=== PATIENT | male | born 1945 | race Caucasian/White ===

== ENCOUNTER 2021-06-16 16:33 | Inpatient (IN) ==
[2021-06-16] MEDS ORDERED: CEFEPIME 2,000 MG/20 ML VIAL IV STA (16:43)
[2021-06-16] MEDS ORDERED: SODIUM CHLORIDE 0.9% 1000ML 1,000 ML IV SCH (16:45)
--- NOTE | 2021-06-16 16:49 | Emergency Department Note ---
History of Present Illness General Chief complaint: Shortness of Breath/Dyspnea Stated complaint: SOB Time Seen by Provider: 06/16/21 16:36 History of Present Illness The patient presents to the ED with a chief complaint of confusion and hypoxia. [facility] [place] [facility] The patient is unable to provide any information as he is confused. When asked if anything bothers him, he reports no. He was found to be hypoxic with oxygen saturations of 85% at the [facility]. The patient had a positive Covid test on the of last month. The patient had a PSG prehospital of 120. No additional information is available from the patient secondary to his confusion. Home Medications Medication Instructions Recorded Confirmed Type acetaminophen 500 mg tablet 500 mg PO TID PRN 06/16/21 06/16/21 History (Tylenol Extra Strength) guaifenesin 400 mg tablet (Mucosa) 400 mg PO TID PRN 06/16/21 06/16/21 History ibuprofen 400 mg tablet 400 mg PO TID PRN 06/16/21 06/16/21 History irbesartan 150 mg tablet 150 mg PO DAILY 06/16/21 06/16/21 History ondansetron HCl 4 mg tablet 4 mg PO TID PRN 06/16/21 06/16/21 History rosuvastatin 5 mg tablet 5 mg PO HS 06/16/21 06/16/21 History Allergies Allergy/AdvReac Type Severity Reaction Status Date / Time adhesive tape Allergy Unknown Unknown Verified 06/16/21 17:04 amoxicillin [From Augmentin] Allergy Unknown Unknown Verified 06/16/21 17:04 clavulanic acid Allergy Unknown Unknown Verified 06/16/21 17:04 [From Augmentin] ultrasound coupling medium Allergy Unknown Unknown Verified 06/16/21 17:05 Past Med/Surg History Social History Smoking Status: Never smoker Preferred Language: Icelandic Feels Safe at Home: Yes and Declines to Answer Review of Systems Unobtainable due to cognitive status Physical Exam Vital Signs Vital Signs - 24 hr 06/16/21 16:57 06/16/21 17:00 06/16/21 17:02 Temperature Temperature Source Pulse Rate 96 H 97 H Pulse Rate [Apical] Pulse Rate from SpO2 Sensor 93 H 95 H Pulse Rhythm Respiratory Rate 23 22 Respiratory Effort / Characteristics Non-Labored Respiratory Depth Normal Respiratory Pattern Tachypnea Blood Pressure Blood Pressure [Right Arm] Blood Pressure Mean Blood Pressure Mean [Right Arm] Blood Pressure Position Blood Pressure Position [Right Arm] Pulse Oximetry 97 99 99 Oxygen Delivery Method Oxymask Oxygen Flow Rate 3 Sepsis Recent Fever Within 48 Hours Sepsis New/Unexplained Change in Mental Status Sepsis Action Taken by Nursing Pulse Oximetry Post Tiitration 99 06/16/21 17:12 06/16/21 17:17 06/16/21 17:30 Temperature 37.2 C Temperature Source Axillary Pulse Rate 85 85 93 H Pulse Rate [Apical] Pulse Rate from SpO2 Sensor 93 H Pulse Rhythm Regular Respiratory Rate 28 H 26 H 25 H Respiratory Effort / Characteristics Non-Labored Respiratory Depth Normal Respiratory Pattern Tachypnea Blood Pressure 129/88 Blood Pressure [Right Arm] Blood Pressure Mean 101 Blood Pressure Mean [Right Arm] Blood Pressure Position Lying Blood Pressure Position [Right Arm] Pulse Oximetry 99 99 91 Oxygen Delivery Method Oxymask Oxymask Oxygen Flow Rate 3 3 Sepsis Recent Fever Within 48 Hours Yes Sepsis New/Unexplained Change in Mental Status Yes Sepsis Action Taken by Nursing Physician Notified Pulse Oximetry Post Tiitration 06/16/21 18:00 06/16/21 18:01 06/16/21 18:30 Temperature Temperature Source Pulse Rate 97 H 101 H 163 H Pulse Rate [Apical] Pulse Rate from SpO2 Sensor 91 H 100 H Pulse Rhythm Respiratory Rate 18 20 24 Respiratory Effort / Characteristics Respiratory Depth Respiratory Pattern Blood Pressure 108/68 Blood Pressure [Right Arm] Blood Pressure Mean 81 Blood Pressure Mean [Right Arm] Blood Pressure Position Blood Pressure Position [Right Arm] Pulse Oximetry 74 L 89 L Oxygen Delivery Method Oxygen Flow Rate Sepsis Recent Fever Within 48 Hours Sepsis New/Unexplained Change in Mental Status Sepsis Action Taken by Nursing Pulse Oximetry Post Tiitration 06/16/21 18:32 06/16/21 18:37 Temperature 36.6 C Temperature Source Rectal Pulse Rate 96 H Pulse Rate [Apical] 83 Pulse Rate from SpO2 Sensor Pulse Rhythm Respiratory Rate 15 24 Respiratory Effort / Characteristics Non-Labored Spontaneous Respiratory Depth Normal Respiratory Pattern Blood Pressure 130/86 Blood Pressure [Right Arm] 130/86 Blood Pressure Mean 100 Blood Pressure Mean [Right Arm] 100 Blood Pressure Position Blood Pressure Position [Right Arm] Lying Pulse Oximetry 94 Oxygen Delivery Method Room Air Oxygen Flow Rate Sepsis Recent Fever Within 48 Hours Sepsis New/Unexplained Change in Mental Status Sepsis Action Taken by Nursing Pulse Oximetry Post Tiitration CONSTITUTIONAL/VITAL SIGNS: Reviewed / noted above. GENERAL: Non-toxic in appearance. No acute distress. 15 L of oxygen via facemask by EMS. INTEGUMENTARY: Warm, dry, and [place]. HEAD: Normocephalic. EYES: without scleral icterus or trauma. ENT/OROPHARYNX: clear and moist. RESPIRATORY: Clear to auscultation bilaterally. No increased work of breathing. CARDIOVASCULAR: Regular rate and rhythm. GI/ABDOMEN: Soft and nontender. No organomegaly or pulsatile mass. EXTREMITIES: Extremities are cool but with palpable peripheral pulses NEUROLOGICAL: The patient is awake and alert. Unknown baseline mental status. Answer some questions but denies any specific complaints. PSYCHIATRIC: normal affect. MUSCULOSKELETAL: Normally developed with good muscle tone. TRIAGE NURSING DOCUMENTATION REVIEWED. Procedures ABG Interpretation ABG Interpretation 1: ABG Results: 7.4 on 3 L Additional Comments: Adequate oxygenation and ventilation on 3 L. Normal pH. Course Administered Medications Discontinued Medications Sodium Chloride (Nss 1000ml) 1,000 mls @ 999 mls/hr IV .Q1H1M HANG Stop: 06/16/21 17:45 Last Admin: 06/16/21 17:26 Dose: 999 mls/hr Documented by: [id number] Cefepime HCl (Maxipime) 2,000 mg in 20 mls @ 5 mls/min IV NOW STA; Protocol Stop: 06/16/21 16:46 Last Admin: 06/16/21 18:03 Dose: 5 mls/min Documented by: [id number] Medical Decision Making Differential Diagnosis The differential was considered includes acute myocardial infarction, acute coronary syndrome, myocarditis, pericarditis, pericardial effusions /tamponad, esophageal perforation, pulmonary embolism, pneumonia, pneumothorax, cardiomyopathy, congestive heart, anemia , COPD/asthma exacerbation. Medical Records Attestation: I reviewed the patient's medical records. Home Medications Current Medication List: was personally reviewed by me Laboratory Data Attestation: I reviewed the patient's lab results. Result diagrams: 06/16/21 16:50 06/16/21 16:50 Lab Results 06/16/21 06/16/21 06/16/21 Range/Units 16:50 16:50 16:50 WBC 15.87 H (4.8-10.8) K/uL RBC 5.53 (4.7-6.1) M/uL Hgb 17.7 (14.0-18.0) g/dL Hct 57.9 H (42-52) % MCV 104.7 H (80-100) fL MCH 32.0 (25-34) pg MCHC 30.6 L (32-36) g/dL RDW Std Deviation 54.4 H (36.4-46.3) fL RDW Coeff of Delilah 14.2 (11.5-14.5) % Plt Count 336 (130-400) K/uL MPV 11.3 H (7.4-10.4) fL Immature Gran % (Auto) 0.3 % Neut % (Auto) 75.5 % Lymph % (Auto) 15.6 % [place] % (Auto) 7.0 % Eos % (Auto) 1.1 % Baso % (Auto) 0.5 % Neut # (Auto) 11.98 H (1.4-6.5) K/uL Lymph # (Auto) 2.48 (1.2-3.4) K/uL [place] # (Auto) 1.11 H (0.11-0.59) K/uL Eos # (Auto) 0.18 (0-0.5) K/uL Baso # (Auto) 0.08 (0-0.2) K/uL Immature Gran # (Auto) 0.04 H (0.00-0.02) K/uL PT (9.0-12.0) Seconds INR (0.9-1.1) APTT (21.0-31.0) Seconds PTT Ratio ABG pH (7.35-7.45) ABG pCO2 (35-46) mmHg ABG pO2 (80-95) mmHg ABG HCO3 (19-24) mmol/L ABG O2 Saturation (90-95) % ABG Base Excess (-9-1.8) mEq/L Tdod Test (Pos) Barometric Pressure mm/Hg Oxygen Given Sodium 167 H* (136-145) mmol/L Potassium 4.6 (3.5-5.1) mmol/L Chloride 128 H (98-107) mmol/L Carbon Dioxide 26 (21-32) mmol/L Anion Gap 13 H (3-11) BUN 64 H (6-23) mg/dl Creatinine 2.77 H (0.6-1.4) mg/dl Est Cr Clr Drug Dosing 26.9 ml/min Est GFR ( Amer) 24.6 ml/min Est GFR (Non-Af Amer) 21.2 ml/min BUN/Creatinine Ratio 23.1 H (10-20) Glucose 142 H (70-99(Fasting)) mg/dl Lactate (0.4-2.0) mmol/L Calcium 9.5 (8.5-10.1) mg/dl Magnesium 3.5 H (1.7-2.4) mg/dl Total Bilirubin 1.1 H (0.2-1.0) mg/dl AST 54 H (13-39) U/L ALT 51 (7-52) U/L Alkaline Phosphatase 96 (34-104) U/L Troponin I 0.09 H* (0-0.04) ng/ml Total Protein 7.6 (6.0-8.3) gm/dl Albumin 4.1 (3.4-5.0) gm/dl Globulin 3.5 (2.5-4.0) gm/dl Albumin/Globulin Ratio 1.2 (0.9-2) Procalcitonin 0.27 (0-0.5) ng/ml 06/16/21 06/16/21 06/16/21 Range/Units 16:50 17:24 17:24 WBC (4.8-10.8) K/uL RBC (4.7-6.1) M/uL Hgb (14.0-18.0) g/dL Hct (42-52) % MCV (80-100) fL MCH (25-34) pg MCHC (32-36) g/dL RDW Std Deviation (36.4-46.3) fL RDW Coeff of Delilah (11.5-14.5) % Plt Count (130-400) K/uL MPV (7.4-10.4) fL Immature Gran % (Auto) % Neut % (Auto) % Lymph % (Auto) % [place] % (Auto) % Eos % (Auto) % Baso % (Auto) % Neut # (Auto) (1.4-6.5) K/uL Lymph # (Auto) (1.2-3.4) K/uL [place] # (Auto) (0.11-0.59) K/uL Eos # (Auto) (0-0.5) K/uL Baso # (Auto) (0-0.2) K/uL Immature Gran # (Auto) (0.00-0.02) K/uL PT 13.1 H (9.0-12.0) Seconds INR 1.3 H (0.9-1.1) APTT 23.3 (21.0-31.0) Seconds PTT Ratio 0.9 ABG pH 7.43 (7.35-7.45) ABG pCO2 33 L (35-46) mmHg ABG pO2 83 (80-95) mmHg ABG HCO3 22 (19-24) mmol/L ABG O2 Saturation 96.6 H (90-95) % ABG Base Excess -1.6 (-9-1.8) mEq/L Todd Test Pos (Pos) Barometric Pressure 725.6 mm/Hg Oxygen Given FLOW RATE 3 Sodium (136-145) mmol/L Potassium (3.5-5.1) mmol/L Chloride (98-107) mmol/L Carbon Dioxide (21-32) mmol/L Anion Gap (3-11) BUN (6-23) mg/dl Creatinine (0.6-1.4) mg/dl Est Cr Clr Drug Dosing ml/min Est GFR ( Amer) ml/min Est GFR (Non-Af Amer) ml/min BUN/Creatinine Ratio (10-20) Glucose (70-99(Fasting)) mg/dl Lactate 1.7 (0.4-2.0) mmol/L Calcium (8.5-10.1) mg/dl Magnesium (1.7-2.4) mg/dl Total Bilirubin (0.2-1.0) mg/dl AST (13-39) U/L ALT (7-52) U/L Alkaline Phosphatase (34-104) U/L Troponin I (0-0.04) ng/ml Total Protein (6.0-8.3) gm/dl Albumin (3.4-5.0) gm/dl Globulin (2.5-4.0) gm/dl Albumin/Globulin Ratio (0.9-2) Procalcitonin (0-0.5) ng/ml Imaging Data Radiologist's Impression: Chest X-Ray 06/16/21 16:44 XR chest 1V portable CLINICAL HISTORY: SEPSIS TECHNIQUE: Single frontal radiograph of the chest was obtained. Comparison: None available at the time of this dictation. FINDINGS: Dual lead pacemaker is seen. Calcified aortic knob is seen. The lungs are clear. No evidence of pleural effusion or pneumothorax. IMPRESSION: No acute chest disease. ACT 112: Negative or not required by law. Electronically signed by: Familia Orantes M.D. 06/16/2021 5:08 PM ECG Data Attestation: I personally reviewed and interpreted this ECG as follows: Additional Comments: Twelve-lead EKG: Per my interpretation has significant baseline artifact however there appears to be a sinus rhythm at a rate of 100. No ST elevation. No PVCs. MDM Narrative Patient [place] [facility] with concerns about hypoxia [place] [facility] and also confusion in the setting of a Covid test on the of last month, about 20 days ago. Prehospital BSG is 120. Patient was brought in on 15 L of oxygen via facemask. He is a poor historian. The patient's white blood cell count is 15.8. Troponin was elevated slightly. Sodium is 163. BUN is 64 and creatinine is 2.77. No baseline kidney function. ABG appears as though he has adequate ventilation. Oxygenation is good on 3 L. EKG showed a normal sinus rhythm at a rate of 100. The patient was empirically treated with cefepime IV. He was given a liter of normal saline IV. He will be seen by the hospitalist for further inpatient evaluation and care. He did have improvement of his mental status during his ED stay, however he continued to be nonsensical in his speech. This may be somewhat baseline for the patient. The pulse ox might be reading low as the patient has cold extremities. The chest x- ray did not show acute process. Covid test was negative. Impression & Plan Acute confusion, Acute hypernatremia, BILL (acute kidney injury) Discharge Plan Visit Data Chief Complaint: Shortness of Breath/Dyspnea Stated Complaint: SOB ED Provider: Matt Chowdhury Discharge Problem: Acute confusion, Acute hypernatremia, BILL (acute kidney injury) Patient Disposition: Being Evaluated by Hospitalist Forms Stand Alone Forms: My [facility] Prescriptions Prescriptions: No Action ondansetron HCl 4 mg Tablet 4 mg PO TID PRN (Reason: Nausea And Vomiting) RF: 0 acetaminophen [Tylenol Extra Strength] 500 mg Tablet 500 mg PO TID PRN (Reason: Unknown) RF: 0 ibuprofen 400 mg Tablet 400 mg PO TID PRN (Reason: covid symptoms) RF: 0 irbesartan 150 mg Tablet 150 mg PO DAILY RF: 0 guaifenesin [Mucosa] 400 mg Tablet 400 mg PO TID PRN (Reason: Unknown) RF: 0 rosuvastatin 5 mg Tablet 5 mg PO HS RF: 0 Referrals Referrals: Matt Casey [Outside Practitioners] -
[2021-06-16 17:02] LABS: Basophils # (auto) 0.08 K/uL (0-0.2); Basophils % (auto) 0.5 %; Eosinophils # (auto) 0.18 K/uL (0-0.5); Eosinophils % (auto) 1.1 %; Hematocrit (blood only) 57.9 % (42-52); Hemoglobin 17.7 g/dL (14.0-18.0); Immature Granulocytes # (auto) 0.04 K/uL (0.00-0.02); Immature Granulocytes % (auto) 0.3 %; Lymphocytes # (auto) 2.48 K/uL (1.2-3.4); Lymphocytes % (auto) 15.6 %; Mean Corpuscular Volume 104.7 fL (80-100); Mean Platelet Volume 11.3 fL (7.4-10.4); Monocytes # (auto) 1.11 K/uL (0.11-0.59); Neutrophils # (auto) 11.98 K/uL (1.4-6.5); Neutrophils % (auto) 75.5 %; Platelet Count 336 K/uL (130-400); RDW Coefficient of Variation 14.2 % (11.5-14.5); RDW Standard Deviation 54.4 fL (36.4-46.3); Red Blood Count 5.53 M/uL (4.7-6.1); White Blood Count 15.87 K/uL (4.8-10.8)
--- NOTE | 2021-06-16 17:09 | XRay Report ---
XR chest 1V portable CLINICAL HISTORY: SEPSIS TECHNIQUE: Single frontal radiograph of the chest was obtained. Comparison: None available at the time of this dictation. FINDINGS: Dual lead pacemaker is seen. Calcified aortic knob is seen. The lungs are clear. No evidence of pleur al effusion or pneumothorax. IMPRESSION: No acute chest disease. ACT 112: Negative or not required by law. Electronically signed by: Familia Orantes M.D. 06/16/2021 5:08 PM
[2021-06-16 17:16] LABS: INR 1.3 (0.9-1.1); Partial Thromboplastin Ratio 0.9; Partial Thromboplastin Time 23.3 Seconds (21.0-31.0); Prothrombin Time 13.1 Seconds (9.0-12.0)
[2021-06-16 17:24] LABS: Mean Corpuscular Hgb Conc 30.6 g/dL (32-36)
[2021-06-16 17:28] LABS: Albumin Globulin Ratio 1.2 (0.9-2); Albumin Level 4.1 gm/dl (3.4-5.0); BUN Creatinine Ratio 23.1 (10-20); Bilirubin,Total 1.1 mg/dl (0.2-1.0); Calcium 9.5 mg/dl (8.5-10.1); Creatinine Clr Calc Pharmacy 26.9 ml/min; Est GFR (African American) 24.6 ml/min; Est GFR (Non-African American) 21.2 ml/min; Globulin 3.5 gm/dl (2.5-4.0); Magnesium 3.5 mg/dl (1.7-2.4); Potassium 4.6 mmol/L (3.5-5.1); Total Protein 7.6 gm/dl (6.0-8.3); Troponin I 0.09 ng/ml (0-0.04)
[2021-06-16 17:50] LABS: Base Excess ABG -1.6 mEq/L (-9-1.8); HCO3 ABG 22 mmol/L (19-24); Oxygen Saturation ABG 96.6 % (90-95); PCO2 ABG 33 mmHg (35-46); PO2 ABG 83 mmHg (80-95); pH ABG 7.43 (7.35-7.45)
[2021-06-16 17:54] LABS: Allen Test Pos (Pos)
--- NOTE | 2021-06-16 18:56 | History & Physical Report ---
Date of Service June 16, 2021 Assessment & Plan (1) Altered mental status: Plan: Patient is 75 y/o M with PMH HTN, HLD, h/o pacemaker, abdominal aortic aneurysm, ischemic cardiomyopathy, reported cognitive disorder with possible dementia presented to [facility] from [facility] for confusion and hypoxia. Obtain CT head r/o stroke Likely metabolic encephalopathy secondary to hypernatremia Monitor In ER was given cefepime. No signs pneumonia on CXR. Lactate and procalcitonin WNL. UA pending. Will hold on further antibiotics (2) Acute hypernatremia: Plan: Na: 167, urine osmolality: 378 Repeat Na is 166 Reported patient often needs reminded to eat and drink and likely did not have oral intake for past 3 days. Likely secondary to lack of water intake. Reported 1 day of diarrhea 1.5 weeks ago. DDX: diabetes insipidus In ER received 1L NSS bolus Monitor BMP Nephrology consult, chronic disease manager recommends D5 100ml/hr (3) Hypoxia: Plan: Reported history positive COVID-19 test on 05/26/2021. No recorded hypoxia during quarantine. Today is reported patient found to have oxygen saturation 85% on room air Today CXR: no acute findings. No leukocytosis. ABG unremarkable O2 sat up to 99% on 3L via oxymask R/O PE. Obtain D-dimer. D-dimer elevated. Obtain venous Doppler, start empiric IV Heparin for suspected PE. Unable to obtain CTA chest secondary to BILL (4) BILL (acute kidney injury): Plan: Cr: 2.7. Reported Cr: 1.0 in 05/2021 from [facility] records Monitor renal functions, avoid nephrotoxic agents when possible (5) Pacemaker: Plan: Obtain pacemaker interrogation (6) Ischemic cardiomyopathy: Plan: Denies CP, SOB Obtain echo Trend trop EKG am (7) Cognitive changes: Plan: Reported chronic cognitive changes with working diagnosis of possible dementia (8) HTN (hypertension): Plan: Hold irbesartan (9) HLD (hyperlipidemia): Plan: Continue rosuvastatin DVT Prophylaxis On IV Heparin Full Code as per discussion with pt Follows with [facility] for routine care Pt was seen and care coordinated with Dr Carmen. See addendum (10) Acute metabolic encephalopathy: History of Present Illness Chief Complaint: Confusion, hypoxia Primary Care Provider: [facility] Patient is 75 y/o M with PMH HTN, HLD, h/o pacemaker, abdominal aortic aneurysm, ischemic cardiomyopathy, reported cognitive disorder with possible dementia presented to ER from [facility] for confusion and hypoxia. History obtained from staff from [facility]. Reports that 3 weeks ago patient reported headache, sore throat and he had positive COVID-19 test on 05/26/2021. [facility] [place] [facility] ago when he was sent back to his cell. Reports while at [facility] noted that patient seemed to have his baseline confusion and not oriented to year however usually oriented to time and place. Reported patient with intermittent confusion and then a return to baseline. Lowest oxygen saturation recorded in low 90s. States 1-1/2 weeks ago had diarrhea that lasted 1.5 days. Denies any known vomiting. Reports some days patient would need to be reminded to eat and drink. Patient did receive as needed ibuprofen, guaifenesin. Past 3 days patient has been in his cell in which she has access to Crestor and irbesartan only. It is unsure if patient has been taking medicines or taking medicines correctly. It is reported his cellmate reports that patient has not ate or drink for the past 3 days. Today it is reported patient was more confused than usual and had oxygen sat of 85% on room air and was transferred to ER. Reported COVID-19 vaccination (Dario) 09/06 & 03/20/21. Currently limited history obtained from patient secondary to his confusion. Patient states has chronic tingling sensation of bilateral feet and denies noting a change. He denies any current complaints including fever/chills, N/V/D/C, AMIN, dizziness, CP, SOB, palpitations, cough, sore throat, abdominal pain, extremity edema, rashes, urinary symptoms. Unable to obtain FH and thorough PMH/social history secondary to confusion. Today in ER O2 sats down to 80's on RA, 99% on 3L oxymask, remaining labs stable. Initial labs Na: 167, Cl: 128, Cr: 2.7. CXR: no acute disease Allergies Allergy/AdvReac Type Severity Reaction Status Date / Time adhesive tape Allergy Unknown Unknown Verified 06/16/21 17:04 amoxicillin [From Augmentin] Allergy Unknown Unknown Verified 06/16/21 17:04 clavulanic acid Allergy Unknown Unknown Verified 06/16/21 17:04 [From Augmentin] ultrasound coupling medium Allergy Unknown Unknown Verified 06/16/21 17:05 Home Medications Medication Instructions Recorded Confirmed Type acetaminophen 500 mg tablet 500 mg PO TID PRN 06/16/21 06/16/21 History (Tylenol Extra Strength) guaifenesin 400 mg tablet (Mucosa) 400 mg PO TID PRN 06/16/21 06/16/21 History ibuprofen 400 mg tablet 400 mg PO TID PRN 06/16/21 06/16/21 History irbesartan 150 mg tablet 150 mg PO DAILY 06/16/21 06/16/21 History ondansetron HCl 4 mg tablet 4 mg PO TID PRN 06/16/21 06/16/21 History rosuvastatin 5 mg tablet 5 mg PO HS 06/16/21 06/16/21 History Past Med/Surg History Medical History Abdominal aortic aneurysm Cognitive changes HLD (hyperlipidemia) HTN (hypertension) Ischemic cardiomyopathy Pacemaker Social History Smoking Status: Former smoker Years Smoked: 40; Hx Alcohol Use: No Hx Substance Use: No Preferred Language: Hungarian Feels Safe at Home: Yes and Declines to Answer Review of Systems Review of Systems: Unobtainable due to cognitive status Physical Exam Physical Exam: General: no distress, WDWN Head: normocephalic, atraumatic Eyes: PERRL, EOM's intact, conjunctiva non-injected, anicteric ENT: normal inspection external ears, nose, mucous membranes dry Neck: supple, trachea midline Lungs: clear, no respiratory distress, no wheezing/rhonchi/rales CV: RRR, no murmur, no pretibial edema Abd: normal BS, soft, non-tender Ext: no cyanosis, no calf tenderness Neuro: Alert, oriented to person. Not oriented to place or time. Says is 2013, unable to tell month, day or president. no focal deficits noted, normal affect Skin: warm, dry Results & Data Results & Data ([facility]) Vital Signs (Past 12 Hours) Vital Signs Temp Pulse Pulse Resp BP BP Pulse Ox 06/16/21 18:37 36.6 C 83 24 130/86 94 02/11/22 17:17 85 26 H 99 06/16/21 17:12 37.2 C 85 28 H 129/88 99 06/16/21 17:02 99 Laboratory Results Short CBC 06/16/21 Range/Units 16:50 WBC 15.87 H (4.8-10.8) K/uL Hgb 17.7 (14.0-18.0) g/dL Hct 57.9 H (42-52) % Plt Count 336 (130-400) K/uL BMP 06/16/21 16:50 Sodium 167 H* Potassium 4.6 Chloride 128 H Carbon Dioxide 26 BUN 64 H Creatinine 2.77 H Glucose 142 H Calcium 9.5 Cardiac Enzymes 06/16/21 Range/Units 16:50 Troponin I 0.09 H* (0-0.04) ng/ml Liver Function 06/16/21 Range/Units 16:50 Total Bilirubin 1.1 H (0.2-1.0) mg/dl AST 54 H (13-39) U/L ALT 51 (7-52) U/L Alkaline Phosphatase 96 (34-104) U/L Albumin 4.1 (3.4-5.0) gm/dl Diagnostic Findings Chest X-Ray 06/16/21 16:44 XR chest 1V portable CLINICAL HISTORY: SEPSIS TECHNIQUE: Single frontal radiograph of the chest was obtained. Comparison: None available at the time of this dictation. FINDINGS: Dual lead pacemaker is seen. Calcified aortic knob is seen. The lungs are clear. No evidence of pleural effusion or pneumothorax. IMPRESSION: No acute chest disease. ACT 112: Negative or not required by law. Electronically signed by: Familia Orantes M.D. 06/16/2021 5:08 PM Supervising Physician Co-Signing Physician Notes I have seen and examined the patient and have discussed the case with the provider above. I agree with the assessment and plan as stated. 75 yo M on [facility], prisoner who recently had covid illness with some diarrhea. Has dementia at baseline and ?access to water and food with uncertainty how much he has been eating or drinking in last few days. Bill present. Physical exam as above. Discussed case briefly with nephrology by phone. Cont with free water correction overnight and trend Na in am. Napier placed and urine studies pending. Also with some hypoxia and elevated D-dimer. In setting of BILL, no contrast can be given. As he is high risk for DVT with recent covid, and sedentary behavior as a prisoner wtih dementia, will start anticoagulation empirically. Recheck BMP in am after hydration overnight. Once renal function improves he will be able to undergo contrasted study to rule out DVT. LE US doppler bilat pending. Appears euvolemic, however, agree with echo to establish underlying structure and function. [place], DO
--- NOTE | 2021-06-16 20:20 | CT Scan Report ---
CT head/brain wo con CLINICAL HISTORY: acute confusion Technique: Contiguous axial CT images of the head were acquired from the base of the skull to the joyce saurav without intravenous contrast administration. Images were viewed in brain, subdural and bone [facility] . Automated dose lowering techniques and/or adjustment according to patient size were utilized for this exam. Comparison: None available at the time of this dictation. Findings: Areas of decreased attenuation are present in the periventricular and subcortical white matter bilate rally consistent with small vessel ischemic disease. Generalized cerebral atrophy with commensurate e nlargement of the ventricles, sulci, and cisterns is also present. There is no acute intracranial hem orrhage or evidence of acute territorial infarction. No shift of the midline structures, mass effect, or extra-axial abnormalities are shown. Atherosclerotic calcifications are present in the intracran ial segments of the internal carotid arteries. 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 Imaged portions of the paranasal sinuses and mastoid air cells are clear. The orbits appear normal. There are no acute fractures of the calvaria or scalp swelling. Impression: No acute intracranial hemorrhage, no evidence of acute territorial infarction or other acute intracra nial disease process. ACT 112: Negative or not required by law. Electronically signed by: Familia Orantes M.D. 06/16/2021 8:19 PM
[2021-06-16 20:27] LABS: BUN Creatinine Ratio 24.9 (10-20); Calcium 8.6 mg/dl (8.5-10.1); Est GFR (African American) 26.9 ml/min; Est GFR (Non-African American) 23.3 ml/min; Phosphorus 5.3 mg/dl (2.5-4.9); Potassium 4.6 mmol/L (3.5-5.1)
[2021-06-16] MEDS: DEXTROSE 5% 1,000 ML IV SCH (20:52)
[2021-06-16 20:53] LABS: D Dimer 7040 ug/L FEU (0-500)
[2021-06-16] MEDS ORDERED: Heparin IV Adult Wt-Based Standard *NO* Bolus Protocol IV STA (21:09)
--- NOTE | 2021-06-16 22:13 | Ultrasound Report ---
US venous doppler LE BI CLINICAL HISTORY: r/o dvt COMPARISON: None available at the time of this dictation. TECHNIQUE: Bilateral lower extremity real-time compression venous ultrasound with Color Doppler imagi ng. Utilizing real-time ultrasonic imaging multiple real time high-resolution ultrasonic images with comp ression and noncompression maneuvers of the deep venous system in addition to color doppler imaging w ere performed from the common femoral vein through the proximal calf veins. FINDINGS: Currently there is normal compressibility of the deep venous system from the common femoral vein thro ugh the proximal calf veins. No current evidence of acute thrombosis is identified. Impression: No evidence of deep venous thrombus. ACT 112: Negative or not required by law. Electronically signed by: Familia Orantes M.D. 06/16/2021 10:11 PM
[2021-06-16] MEDS: HEPARIN SODIUM/DEXTROSE 25,000 UNITS/500 ML BAG IV SCH (22:23)
[2021-06-16 22:45] LABS: Appearance Urine Clear (Clear); Bacteria Urine Automated Negative (Negative); Blood Urine Negative (Negative); Color Urine Dark Yellow; Epithelial Cell Urine Auto 20-30 /lpf (0-5); Glucose Urine UA Negative (Negative); Ketones Urine Trace (Negative); Leukocyte Esterase Urine Negative (Negative); Nitrite Urine Negative (Negative); Protein Urine 1+ (Negative); Specific Gravity Urine 1.028 (1.000-1.030); Urobilinogen Urine Negative (Negative)
[2021-06-16 22:46] LABS: Bilirubin Urine 1+ (Negative)
[2021-06-17] MEDS ORDERED: ACETAMINOPHEN 325 MG TAB PO PRN (00:01)
[2021-06-17] MEDS: ROSUVASTATIN CALCIUM 5 MG TAB PO SCH ×2 (02:15→22:02)
[2021-06-17 03:17] LABS: Basophils # (auto) 0.07 K/uL (0-0.2); Basophils % (auto) 0.5 %; Eosinophils # (auto) 0.25 K/uL (0-0.5); Eosinophils % (auto) 1.8 %; Hematocrit (blood only) 51.3 % (42-52); Hemoglobin 15.7 g/dL (14.0-18.0); Immature Granulocytes # (auto) 0.04 K/uL (0.00-0.02); Immature Granulocytes % (auto) 0.3 %; Lymphocytes # (auto) 2.08 K/uL (1.2-3.4); Mean Corpuscular Hemoglobin 32.2 pg (25-34); Mean Corpuscular Hgb Conc 30.6 g/dL (32-36); Mean Corpuscular Volume 105.3 fL (80-100); Mean Platelet Volume 11.5 fL (7.4-10.4); Monocytes # (auto) 1.12 K/uL (0.11-0.59); Monocytes % (auto) 8.1 %; Neutrophils # (auto) 10.35 K/uL (1.4-6.5); Neutrophils % (auto) 74.3 %; Platelet Count 239 K/uL (130-400); RDW Coefficient of Variation 14.3 % (11.5-14.5); RDW Standard Deviation 55.4 fL (36.4-46.3); Red Blood Count 4.87 M/uL (4.7-6.1); White Blood Count 13.91 K/uL (4.8-10.8)
[2021-06-17 03:40] LABS: Troponin I 0.08 ng/ml (0-0.04)
[2021-06-17 03:44] LABS: Partial Thromboplastin Ratio 2.1
[2021-06-17 04:08] LABS: BUN Creatinine Ratio 27.8 (10-20); Calcium 8.5 mg/dl (8.5-10.1); Creatinine Clr Calc Pharmacy 31.5 ml/min; Est GFR (African American) 29.7 ml/min; Est GFR (Non-African American) 25.6 ml/min
[2021-06-17 04:12] LABS: Partial Thromboplastin Time 54.2 Seconds (21.0-31.0)
[2021-06-17] MEDS: DEXTROSE 5% 1,000 ML IV SCH ×3 (06:15→23:09)
--- NOTE | 2021-06-17 09:45 | Consultation Report ---
NEPHROLOGY CONSULTATION NOTE DATE OF SERVICE: 06/17/2021. REASON FOR CONSULTATION: Acute renal failure and hypernatremia. HISTORY OF PRESENT ILLNESS: The patient is a 75-year-old male with extensive medical problem list in cluding hypertension, hyperlipidemia, pacemaker, abdominal aortic aneurysm, ischemic cardiomyopathy, underlying dementia, who presented to the Emergency Department yesterday from the residential for confusio n and hypoxia. The patient is a poor historian and he really did not know why he was in the hospital and what his problem was. Blood work done in the Emergency Department showed acute renal failure wi th hypernatremia, sodium was 167 on admission, creatinine was 2.77. Overnight, he got D5 water and w ith that serum sodium is down to 163 now, creatinine is down to 2.37. The patient is hemodynamically quite stable other than requiring oxygen. The patient was having some diarrhea prior to hospitaliza tion. He received ibuprofen, guaifenesin and he is also on irbesartan as an outpatient. There is ind irect reporting that patient has not ate or drank for the last few days prior to hospitalization and he was much more confused than usual. As per the record, his last creatinine was 1.0 just about a mon ago. ALLERGIES: Reviewed. MEDICATIONS: As per the reconciliation list home medication was reviewed and includes irbesartan and ibuprofen. Full list was reviewed in detail. Also the inpatient medication list was reviewed. PAST MEDICAL AND SURGICAL HISTORY: Includes abdominal aortic aneurysm, cognitive changes with zeenat ia, hypertension, hyperlipidemia, ischemic cardiomyopathy, pacemaker. REVIEW OF SYSTEMS: Unobtainable due to cognitive status. SOCIAL HISTORY: Former smoker, currently a resident at residential. No alcohol. PHYSICAL EXAMINATION: GENERAL: He is awake and alert, not fully oriented, not able to answer my questions regarding his he alth problem. HEENT: Mucous membrane is moist. NECK: Supple. No jugular venous distention. CHEST: Bilateral decreased breath sounds, poor inspiratory effort, poor quality exam. CARDIOVASCULAR: S1 and S2, regular. ABDOMEN: Soft, nontender. EXTREMITIES: Show no edema. LABORATORY TEST: At baseline creatinine is 1.0, on admission was 2.77. It is improving and is down to 2.37, sodium was 167. It is also improving down to 163. Troponins mildly positive. Serum osmola rity 377. ASSESSMENT AND PLAN: A 75-year-old male with multiple medical problems including underlying dementia and a resident of residential, admitted with confusion, hypoxia and was found to have acute renal failure and hypernatremia, for which I have been consulted. 1. Acute renal failure. 2. Hypernatremia. By definition hypernatremia is free water deficit and he appears to be dehydrated as he was having diarrhea and was not eating or drinking for the last few days. The treatment of th is is pretty simple and with current use of D5 water at 100 mL per hour both the creatinine and sodiu m is improving nicely at an appropriate rate. We do not need to make any changes at this point. His serum sodium will go down, but will be pretty slow and will take another one to two days to fully get it back to normal. No further workup is needed for acute renal failure. He is making urine. His v ital signs appear stable other than oxygen need. I will defer the hypoxia management to the primary team. At this point we can do BMP twice daily. Job ID: [id number]
[2021-06-17 10:42] LABS: Partial Thromboplastin Ratio 3.6
[2021-06-17 10:48] LABS: Partial Thromboplastin Time 94.1 Seconds (21.0-31.0)
[2021-06-17 11:04] LABS: BUN Creatinine Ratio 28.8 (10-20); Calcium 8.4 mg/dl (8.5-10.1); Creatinine Clr Calc Pharmacy 35.2 ml/min; Est GFR (Non-African American) 29.3 ml/min
--- NOTE | 2021-06-17 12:15 | Hospitalist Progress Note ---
Date of Service June 17, 2021 Assessment & Plan (1) Acute metabolic encephalopathy: (2) Hyponatremia: Plan: 75 y/o M with PMH of HTN, HLD, h/o pacemaker, abdominal aortic aneurysm, ischemic cardiomyopathy, reported cognitive disorder with possible dementia presented to ER 06/16 from [facility] for confusion and hypoxia. He is being managed for the following: #. Hyponatremia #. Acute metabolic encephalopathy 06/07 above Patient was brought with confusion and hypoxia, found to have sodium level of 167, likely secondary to recent diarrheal episode & not eating and drinking for the last few days. Reported patient often needs reminders to eat and drink. Admitting CT head negative for any acute intracranial findings. Admitting CXR with no signs of pneumonia. Admitting lactate and procalcitonin WNL. Admitting UA negative for UTI. Patient AO x2 at bedside exam. Swallow screen if fails, speech eval. Sodium level gradually improving, patient on IV fluids per nephrology, appreciate nephrology recommendations. Continue with periodic sodium level. #. Hypoxia Covid positive on 05/26/2021, no recorded hypoxia during quarantine. On the day of arrival, patient reported to have oxygen saturation of 85% on room air In the ED, patient required 3 L oxygen by oxygen mask, saturation up to 99%. Admitting venous Doppler study BLE negative for DVT. D-dimer was elevated, CTA chest was not acute renal failure, will get VQ scan. Continue with empiric IV heparin for suspected PE until VQ scan. #. BILL Baseline creatinine 1.0 in May 2021 from [facility] records Admitting creatinine of 2.7, nicely coming down. Monitor renal function, avoid nephrotoxic's, continue with IV fluids, nephrology on board. Avoid NSAIDs. #. Pacemaker: Obtain pacemaker interrogation (6) Ischemic cardiomyopathy: Plan: Denies CP, SOB Troponin flat trend around 0.08, likely secondary to BILL. EKG reviewed. await echo (7) Cognitive changes: Plan: Reported chronic cognitive changes with working diagnosis of possible dementia (8) HTN (hypertension): Plan: Hold irbesartan (9) HLD (hyperlipidemia): Plan: Continue rosuvastatin DVT Prophylaxis On IV Heparin Full Code as per discussion with pt Follows with [facility] for routine care Admission and Anticipated Discharge Date Admission Date: June 16, 2021 Subjective Patient was seen and examined at bedside for hyponatremia, altered mental status, acute kidney injury and likely pulmonary embolism [CTA chest contraindicated due to BILL] [VQ scan possible only on Saturday]. Patient was lying in bed, on 4 L oxygen via oxygen mask, NAD, no new acute events overnight. Patient reports feeling better than yesterday. Patient is alert and oriented x2. Patient denies any headache or dizziness or chest pain or palpitation or cough or sore throat or any increased shortness of breath or any other review of symptoms. Patient remains n.p.o. due to altered mental status, communicated with RN for bedside swallow screen and possibly speech eval if fails. Physical Exam Physical Exam: GENERAL: Alert and oriented x2. NAD, on 4L OM. HEENT: No pallor, no icterus. Pupils equal, round and reactive to light. Oral mucosa moist. NECK: No JVD, no neck masses. HEART: S1 and S2 heard. Regular rate and rhythm. No murmur, no gallop. RESPIRATORY SYSTEM: Normal AP diameter. No accessory muscle use. No wheezing, no crackles. ABDOMEN: Soft, bowel sounds present, nontender, no distention. CENTRAL NERVOUS SYSTEM: No facial droop. Speech is clear. Obeys simple commands. Moves extremities. EXTREMITIES: No edema, no erythema seen. Results & Data Results & Data ([facility]) Vital Signs (Past 12 Hours) Vital Signs Pulse Resp BP Pulse Ox 06/17/21 10:00 90 19 120/68 95 06/17/21 09:00 84 20 94 06/17/21 08:00 85 21 110/72 96 06/17/21 07:00 87 19 95 06/17/21 06:00 90 13 122/61 96 06/17/21 05:00 86 22 95 06/17/21 04:00 89 19 127/83 95 06/17/21 03:00 91 H 23 97 06/17/21 02:00 121/85 97 06/17/21 01:30 124/81 99 06/17/21 01:23 91/71 L 98 06/17/21 01:22 121/82 92 06/17/21 01:00 125/85 92 06/17/21 00:30 98/74 L 93
[2021-06-17] MEDS: HEPARIN SODIUM/DEXTROSE 25,000 UNITS/500 ML BAG IV SCH (17:21)
[2021-06-17 19:29] LABS: Partial Thromboplastin Ratio 3.2
[2021-06-17 23:51] LABS: BUN Creatinine Ratio 27.7 (10-20); Calcium 8.7 mg/dl (8.5-10.1); Creatinine Clr Calc Pharmacy 40.6 ml/min; Est GFR (African American) 40.4 ml/min; Est GFR (Non-African American) 34.8 ml/min; Potassium 3.6 mmol/L (3.5-5.1)
[2021-06-18 03:25] LABS: Partial Thromboplastin Ratio 3.2
[2021-06-18 03:34] LABS: Partial Thromboplastin Time 85.1 Seconds (21.0-31.0)
[2021-06-18] MEDS: HEPARIN SODIUM/DEXTROSE 25,000 UNITS/500 ML BAG IV SCH ×2 (07:10→14:59)
[2021-06-18 07:32] LABS: Hematocrit (blood only) 54.6 % (42-52); Hemoglobin 15.9 g/dL (14.0-18.0); Mean Corpuscular Hemoglobin 31.6 pg (25-34); Mean Corpuscular Hgb Conc 29.1 g/dL (32-36); Mean Corpuscular Volume 108.5 fL (80-100); Mean Platelet Volume 11.6 fL (7.4-10.4); Platelet Count 161 K/uL (130-400); RDW Coefficient of Variation 14.4 % (11.5-14.5); RDW Standard Deviation 57.2 fL (36.4-46.3); Red Blood Count 5.03 M/uL (4.7-6.1); White Blood Count 11.37 K/uL (4.8-10.8)
[2021-06-18 07:42] LABS: Calcium 8.5 mg/dl (8.5-10.1); Creatinine Clr Calc Pharmacy 40.8 ml/min; Est GFR (African American) 42.9 ml/min; Magnesium 3.2 mg/dl (1.7-2.4); Phosphorus 3.5 mg/dl (2.5-4.9); Potassium 3.9 mmol/L (3.5-5.1)
[2021-06-18 10:39] LABS: Partial Thromboplastin Ratio 1.8
[2021-06-18 10:56] LABS: Partial Thromboplastin Time 48.4 Seconds (21.0-31.0)
--- NOTE | 2021-06-18 13:10 | Nephrology Progress Note ---
Date of Service June 18, 2021 Assessment & Plan Admission and Anticipated Discharge Date Admission Date: June 16, 2021 Subjective S--no new issues. Denies Ay compliants. PHYSICAL EXAMINATION: GENERAL: He is awake and alert, not fully oriented, not able to answer my questions regarding his health problem. HEENT: Mucous membrane is moist. NECK: Supple. No jugular venous distention. CHEST: Bilateral decreased breath sounds, poor inspiratory effort, poor quality exam. CARDIOVASCULAR: S1 and S2, regular. ABDOMEN: Soft, nontender. EXTREMITIES: Show no edema. LABORATORY TEST: At baseline creatinine is 1.0, on admission was 2.77. It is improving and is down , sodium was 167.Now 159.. ASSESSMENT AND PLAN: A 75-year-old male with multiple medical problems including underlying dementia and a resident of retirement, admitted with confusion, hypoxia and was found to have acute renal failure and hypernatremia, for which I have been consulted. 1. Acute renal failure. 2. Hypernatremia. ---By definition hypernatremia is free water deficit and he appears to be dehydrated as he was having diarrhea and was not eating or drinking for the last few days. The treatment of this is pretty simple and with current use of D5 water at 100 mL per hour both the creatinine and sodium is improving nicely at an appropriate rate. We do not need to make any changes at this point. His serum sodium will go down, but will be pretty slow and will take another one to two days to fully get it back to normal. No further workup is needed for acute renal failure. He is making urine. At this point we can do BMP Once daily. Both ARF and High na improving nicely at appropriate rate Raise D5W to 100/hr. Results & Data ([facility]) Vital Signs (Past 12 Hours) Vital Signs Temp Pulse Resp BP Pulse Ox 06/18/21 11:46 36.8 C 75 18 124/77 95 06/18/21 07:43 36.4 C L 72 16 123/76 95 06/18/21 03:42 36.0 C L 76 20 123/79 98
--- NOTE | 2021-06-18 16:51 | Hospitalist Progress Note ---
Date of Service June 18, 2021 Assessment & Plan (1) Hypoxia: (2) Acute metabolic encephalopathy: Plan: 75 y/o M with PMH of HTN, HLD, h/o pacemaker, abdominal aortic aneurysm, ischemic cardiomyopathy, reported cognitive disorder with possible dementia presented to ER 06/16 [facility] for confusion and hypoxia. He is being managed for the following: #. Hyponatremia #. Acute metabolic encephalopathy 06/07 above Patient was brought with confusion and hypoxia, found to have sodium level of 167, likely secondary to recent diarrheal episode & not eating and drinking for the last few days. Reported patient often needs reminders to eat and drink. Admitting CT head negative for any acute intracranial findings. Admitting CXR with no signs of pneumonia. Admitting lactate and procalcitonin WNL. Admitting UA negative for UTI. Patient AO x2 at bedside exam. Swallow screen if fails, speech eval. Sodium level gradually improving, patient on IV fluids per nephrology, appreciate nephrology recommendations. Continue with periodic sodium level. #. Hypoxia Covid positive on 05/26/2021, no recorded hypoxia during quarantine. On the day of arrival, patient reported to have oxygen saturation of 85% on room air In the ED, patient required 3 L oxygen by oxygen mask, saturation up to 99%. Admitting venous Doppler study BLE negative for DVT. D-dimer was elevated, CTA chest was not acute renal failure, will get VQ scan. Likely happen tomorrow. Continue with empiric IV heparin for suspected PE until VQ scan. #. BILL Baseline creatinine 1.0 in May 2021 from [facility] records Admitting creatinine of 2.7, nicely coming down. Monitor renal function, avoid nephrotoxic's, continue with IV fluids, nephrology on board. Avoid NSAIDs. #. Pacemaker: Obtain pacemaker interrogation (6) Ischemic cardiomyopathy: Plan: Denies CP, SOB Troponin flat trend around 0.08, likely secondary to BILL. EKG reviewed. await echo (7) Cognitive changes: Plan: Reported chronic cognitive changes with working diagnosis of possible dementia (8) HTN (hypertension): Plan: Hold irbesartan (9) HLD (hyperlipidemia): Plan: Continue rosuvastatin DVT Prophylaxis On IV Heparin Full Code as per discussion with pt Follows with [facility] for routine care Admission and Anticipated Discharge Date Admission Date: June 16, 2021 Subjective Patient was seen and examined at bedside for hyponatremia, altered mental status, acute kidney injury and likely pulmonary embolism [CTA chest contraindicated due to BILL] [VQ scan possible only on Saturday]. Patient was lying in bed, on 4 L oxygen via oxygen mask, NAD, no new acute events overnight. Patient appears more sleepy today. Can be aroused and oriented x2. Patient denies any headache or dizziness or chest pain or palpitation or cough or sore throat or any increased shortness of breath or any other review of symptoms. Patient remains n.p.o. due to altered mental status, communicated with RN for bedside swallow screen and possibly speech eval if fails. Physical Exam Physical Exam: GENERAL: Alert and oriented x2. NAD, on 4L OM. HEENT: No pallor, no icterus. Pupils equal, round and reactive to light. Oral mucosa moist. NECK: No JVD, no neck masses. HEART: S1 and S2 heard. Regular rate and rhythm. No murmur, no gallop. RESPIRATORY SYSTEM: Normal AP diameter. No accessory muscle use. No wheezing, no crackles. ABDOMEN: Soft, bowel sounds present, nontender, no distention. CENTRAL NERVOUS SYSTEM: No facial droop. Speech is clear. Obeys simple commands. Moves extremities. EXTREMITIES: No edema, no erythema seen. Results & Data Results & Data ([facility]) Vital Signs (Past 12 Hours) Vital Signs Temp Pulse Pulse Resp BP BP Pulse Ox 06/18/21 15:18 36.7 C 98 H 19 112/71 92 06/18/21 11:46 36.8 C 75 18 124/77 95 06/18/21 08:00 72 06/18/21 07:43 36.4 C L 72 16 123/76 95
--- NOTE | 2021-06-18 17:43 | Electrocardiogram Report ---
Test Reason : Blood Pressure : / mmHG Vent. Rate : 100 BPM Atrial Rate : 100 BPM P-R Int : 158 ms QRS Dur : 100 ms QT Int : 406 ms P-R-T Axes : 064 154 038 degrees QTc Int : 523 ms Poor data quality, interpretation may be adversely affected Sinus rhythm Right axis deviation Pulmonary disease pattern Incomplete right bundle branch block Abnormal ECG No previous ECGs available Confirmed by Rex Lopez ([id number]) on 06/18/2021 5:42:59 PM Referred By: [facility] VILLEDA Confirmed By:Rex Lopez
--- NOTE | 2021-06-18 17:58 | Electrocardiogram Report ---
Test Reason : Blood Pressure : / mmHG Vent. Rate : 104 BPM Atrial Rate : 104 BPM P-R Int : 178 ms QRS Dur : 098 ms QT Int : 400 ms P-R-T Axes : 067 243 059 degrees QTc Int : 526 ms Poor data quality, interpretation may be adversely affected Sinus tachycardia with occasional , and consecutive Premature ventricular complexes Right superior axis deviation Pulmonary disease pattern Incomplete right bundle branch block Prolonged QT Abnormal ECG When compared with ECG of 16-JUN-2021 16:46, (unconfirmed) No significant change Confirmed by Rex Lopez ([id number]) on 06/18/2021 5:58:33 PM Referred By: [facility] SCI Confirmed By:Rex Lopez
[2021-06-18] MEDS: DEXTROSE 5% 1,000 ML IV SCH (18:13)
--- NOTE | 2021-06-18 18:26 | Electrocardiogram Report ---
Test Reason : Blood Pressure : / mmHG Vent. Rate : 089 BPM Atrial Rate : 089 BPM P-R Int : 174 ms QRS Dur : 118 ms QT Int : 426 ms P-R-T Axes : 057 071 048 degrees QTc Int : 518 ms Normal sinus rhythm Low voltage QRS Incomplete right bundle branch block Nonspecific ST and T wave abnormality Prolonged QT Abnormal ECG When compared with ECG of 16-JUN-2021 18:29, (unconfirmed) No significant change Confirmed by Rex Lopez ([id number]) on 06/18/2021 6:25:49 PM Referred By: [facility] SCI Confirmed By:Rex Lopez
[2021-06-18] MEDS: ROSUVASTATIN CALCIUM 5 MG TAB PO SCH (19:26)
[2021-06-19 07:16] LABS: Hemoglobin 14.1 g/dL (14.0-18.0); Mean Corpuscular Hemoglobin 31.5 pg (25-34); Mean Corpuscular Hgb Conc 30.7 g/dL (32-36); Mean Corpuscular Volume 102.9 fL (80-100); Mean Platelet Volume 11.1 fL (7.4-10.4); Platelet Count 177 K/uL (130-400); RDW Coefficient of Variation 14.1 % (11.5-14.5); Red Blood Count 4.47 M/uL (4.7-6.1); White Blood Count 7.34 K/uL (4.8-10.8)
[2021-06-19] MEDS: DEXTROSE 5% 1,000 ML IV SCH ×2 (07:32→13:57)
[2021-06-19 07:53] LABS: Partial Thromboplastin Ratio 2.4
[2021-06-19 07:55] LABS: BUN Creatinine Ratio 24.1 (10-20); Calcium 8.2 mg/dl (8.5-10.1); Creatinine Clr Calc Pharmacy 49.1 ml/min; Est GFR (African American) 53.8 ml/min; Est GFR (Non-African American) 46.4 ml/min; Potassium 3.3 mmol/L (3.5-5.1)
[2021-06-19 08:14] LABS: Partial Thromboplastin Time 63.8 Seconds (21.0-31.0)
[2021-06-19] MEDS: POTASSIUM CHLORIDE / WTR 10 MEQ/100 ML PLCT IV SCH ×4 (09:39→12:29)
[2021-06-19] MEDS: HEPARIN SODIUM/DEXTROSE 25,000 UNITS/500 ML BAG IV SCH (13:56)
--- NOTE | 2021-06-19 14:18 | Nuclear Medicine Report ---
NUCLEAR PULMONARY PERFUSION SCAN CLINICAL HISTORY: Elevated d-dimer. COMPARISON STUDY: Chest x-ray dated 06/16/2021. TECHNIQUE: Nuclear pulmonary perfusion scan of both lungs was performed following the IV administrati on of 5. mCi of technetium 99m MAA. Images were acquired in the anterior, posterior, and oblique proj ections. FINDINGS: A chest x-ray performed 06/16/2021 shows cardiomegaly and a cardiac pacemaker. No airspace consolidati on or large pleural effusion is identified. No perfusion defects are identified on the perfusion imaging. IMPRESSION: No perfusion defects are identified to suggest pulmonary embolus. ACT 112: Negative or not required by law. Electronically signed by: Kurt Cordero M.D. 06/19/2021 2:16 PM
--- NOTE | 2021-06-19 15:07 | Nephrology Progress Note ---
Date of Service June 19, 2021 Assessment & Plan Admission and Anticipated Discharge Date Admission Date: June 16, 2021 Subjective S--no new issues. Denies Any new complaints. PHYSICAL EXAMINATION: GENERAL: He is awake and alert, not fully oriented, not able to answer my questions regarding his health problem. HEENT: Mucous membrane is moist. NECK: Supple. No jugular venous distention. CHEST: Bilateral decreased breath sounds, poor inspiratory effort, poor quality exam. CARDIOVASCULAR: S1 and S2, regular. ABDOMEN: Soft, nontender. EXTREMITIES: Show no edema. LABORATORY TEST: At baseline creatinine is 1.0, on admission was 2.77. It is improving and is down , sodium was 167.Now 156 ASSESSMENT AND PLAN: A 75-year-old male with multiple medical problems including underlying dementia and a resident of [facility]-way, admitted with confusion, hypoxia and was found to have acute renal failure and hypernatremia, for which I have been consulted. 1. Acute renal failure. 2. Hypernatremia. ---By definition hypernatremia is free water deficit and he appears to be dehydrated as he was having diarrhea and was not eating or drinking for the last few days. The treatment of this is pretty simple and with current use of D5 water at 100 mL per hour both the creatinine and sodium is improving nicely at an appropriate rate. We do not need to make any changes at this point. His serum sodium will go down, but will be pretty slow and will take another one to two days to fully get it back to normal. No further workup is needed for acute renal failure. He is making urine. At this point we can do BMP Once daily. Both ARF and High na improving nicely at appropriate rate Continue D5W to 100/hr. salena is coming down slowly. No need to raise the fluid rate. encourage Oral fluid intake Results & Data [facility]) Vital Signs (Past 12 Hours) Vital Signs Temp Pulse Pulse Resp BP Pulse Ox 06/19/21 11:27 37.1 C 83 18 113/65 06/19/21 07:26 73 06/19/21 05:44 36.4 C L 74 20 94
[2021-06-19] MEDS ORDERED: POTASSIUM CHLORIDE 20 MEQ/15 ML UDC PO STA (16:02)
--- NOTE | 2021-06-19 16:21 | Hospitalist Progress Note ---
Date of Service June 19, 2021 Assessment & Plan (1) Hypoxia: (2) Acute metabolic encephalopathy: Plan: 75 y/o M with PMH of HTN, HLD, h/o pacemaker, abdominal aortic aneurysm, ischemic cardiomyopathy, reported cognitive disorder with possible dementia presented to ER 06/16 from [facility] for confusion and hypoxia. He is being managed for the following: #. Hyponatremia #. Acute metabolic encephalopathy 06/07 above Patient was brought with confusion and hypoxia, found to have sodium level of 167, likely secondary to recent diarrheal episode & not eating and drinking for the last few days. Reported patient often needs reminders to eat and drink per documentation. Admitting CT head negative for any acute intracranial findings. Admitting CXR with no signs of pneumonia. Admitting lactate and procalcitonin WNL. Admitting UA negative for UTI. Patient AO x2 at bedside exam. More alert today. 06/19: Speech evaluated, started on easy to chew diet. RN to downgrade to minced and moist if difficulty with textures. Sodium level gradually improving, patient on IV fluids per nephrology, appreciate nephrology recommendations. BMP daily and as needed.. #. Hypoxia Covid positive on 05/26/2021, no recorded hypoxia during quarantine. On the day of arrival, patient reported to have oxygen saturation of 85% on room air In the ED, patient required 3 L oxygen by oxygen mask, saturation up to 99%. Admitting venous Doppler study BLE negative for DVT. --> Patient was started on heparin drip for presumed PE on admission as D-dimer was elevated ---> V/Q scan was possible on 06/19 which is negative for PE Heparin drip DC'd 06/19 after VQ scan result. Hypoxia resolved. #. BILL Baseline creatinine 1.0 in May 2021 from [facility] records Admitting creatinine of 2.7, nicely coming down. Monitor renal function, avoid nephrotoxic's, continue with IV fluids, nephrology on board. Avoid NSAIDs. #. GI bleed Patient had melanotic stool per RN, FOBT was positive on 06/19 Patient's hemoglobin has stayed stable and was on heparin drip since last 2 days Heparin drip is being stopped because PE has been ruled out Heparin subcu will be continued as DVT prophylaxis since his hemoglobin was stable. Consider GI consult if there is drop in hemoglobin. Will start him on PPI BID for now. He will need outpatient GI follow-up for FOBT positive. #. Pacemaker: Obtain pacemaker interrogation (6) Ischemic cardiomyopathy: Plan: Denies CP, SOB Troponin flat trend around 0.08, likely secondary to BILL. EKG reviewed. (7) Cognitive changes: Plan: Reported chronic cognitive changes with working diagnosis of possible dementia (8) HTN (hypertension): Plan: Hold irbesartan (9) HLD (hyperlipidemia): Plan: Continue rosuvastatin DVT Prophylaxis On IV Heparin Full Code as per discussion with pt Follows with [facility] for routine care Admission and Anticipated Discharge Date Admission Date: June 16, 2021 Subjective Patient was seen and examined at bedside for hyponatremia, altered mental status, acute kidney injury. Patient was lying in bed, on room air, NAD, no new acute events overnight. Patient is alert and oriented x2, is more alert today. Patient is asking for food, speech evaluated and cleared him for easy to chew diet. Patient denies any fever/chills/chest pain/belly pain/sore throat/cough/other review of symptoms. Physical Exam Physical Exam: GENERAL: Alert and oriented x2. NAD, on RA. HEENT: No pallor, no icterus. Pupils equal, round and reactive to light. Oral mucosa moist. NECK: No JVD, no neck masses. HEART: S1 and S2 heard. Regular rate and rhythm. No murmur, no gallop. RESPIRATORY SYSTEM: Normal AP diameter. No accessory muscle use. No wheezing, no crackles. ABDOMEN: Soft, bowel sounds present, nontender, no distention. CENTRAL NERVOUS SYSTEM: No facial droop. Speech is clear. Obeys simple commands. Moves extremities. EXTREMITIES: No edema, no erythema seen. Results & Data Results & Data ([facility]) Vital Signs (Past 12 Hours) Vital Signs Temp Pulse Pulse Resp BP BP Pulse Ox 06/19/21 15:57 71 06/19/21 15:27 36.5 C 73 18 137/74 95 06/19/21 11:27 37.1 C 83 18 113/65 06/19/21 07:26 73 06/19/21 05:44 36.4 C L 74 20 94
[2021-06-19] MEDS: PANTOprazole 40 MG TAB PO SCH (21:24)
[2021-06-19] MEDS: ROSUVASTATIN CALCIUM 5 MG TAB PO SCH (21:25)
[2021-06-19] MEDS: HEPARIN SOD 5,000 UNIT/0.5 ML VIAL SQ SCH (21:25)
[2021-06-20] MEDS: DEXTROSE 5% 1,000 ML IV SCH ×3 (05:15→15:30)
[2021-06-20 07:53] LABS: Hematocrit (blood only) 42.3 % (42-52); Hemoglobin 13.1 g/dL (14.0-18.0); Mean Corpuscular Hemoglobin 31.3 pg (25-34); Mean Platelet Volume 11.2 fL (7.4-10.4); Platelet Count 154 K/uL (130-400); RDW Coefficient of Variation 14.2 % (11.5-14.5); RDW Standard Deviation 52.2 fL (36.4-46.3); Red Blood Count 4.19 M/uL (4.7-6.1); White Blood Count 6.95 K/uL (4.8-10.8)
[2021-06-20 08:05] LABS: Partial Thromboplastin Ratio 1.1; Partial Thromboplastin Time 27.7 Seconds (21.0-31.0)
[2021-06-20 08:21] LABS: BUN Creatinine Ratio 18.9 (10-20); Calcium 8.1 mg/dl (8.5-10.1); Creatinine Clr Calc Pharmacy 56.1 ml/min; Est GFR (African American) 63.2 ml/min; Est GFR (Non-African American) 54.5 ml/min; Magnesium 2.6 mg/dl (1.7-2.4); Phosphorus 2.3 mg/dl (2.5-4.9); Potassium 3.3 mmol/L (3.5-5.1)
[2021-06-20] MEDS: HEPARIN SOD 5,000 UNIT/0.5 ML VIAL SQ SCH ×2 (08:30→20:50)
[2021-06-20] MEDS: PANTOprazole 40 MG TAB PO SCH ×2 (08:31→20:50)
[2021-06-20] MEDS ORDERED: K PHOS IV ONE (09:25)
--- NOTE | 2021-06-20 09:27 | Nephrology Progress Note ---
Date of Service June 20, 2021 Assessment & Plan Admission and Anticipated Discharge Date Admission Date: June 16, 2021 Subjective Assessment & Plan Subjective S--no new issues. Denies Any new complaints. PHYSICAL EXAMINATION: GENERAL: He is awake and alert, not fully oriented, not able to answer my questions regarding his health problem. HEENT: Mucous membrane is moist. NECK: Supple. No jugular venous distention. CHEST: Bilateral decreased breath sounds, poor inspiratory effort, poor quality exam. CARDIOVASCULAR: S1 and S2, regular. ABDOMEN: Soft, nontender. EXTREMITIES: Show no edema. LABORATORY TEST: At baseline creatinine is 1.0, on admission was 2.77. It is improving and is down , sodium was 167.Now 149 ASSESSMENT AND PLAN: A 75-year-old male with multiple medical problems including underlying dementia and a resident of intermediate, admitted with confusion, hypoxia and was found to have acute renal failure and hypernatremia, for which I have been consulted. 1. Acute renal failure. 2. Hypernatremia. ---By definition hypernatremia is free water deficit and he appears to be dehydrated as he was having diarrhea and was not eating or drinking for the last few days. The treatment of this is pretty simple and with current use of D5 water at 100 mL per hour both the creatinine and sodium is improving nicely at an appropriate rate. We do not need to make any changes at this point. His serum sodium will go down, but will be pretty slow and will take another one to two days to fully get it back to normal. No further workup is needed for acute renal failure. He is making urine. At this point we can do BMP Once daily. Both ARF and High na improving nicely at appropriate rate Continue D5W to 100/hr. na is coming down slowly. No need to raise the fluid rate. encourage Oral fluid intake. Low k and low phos today--give 15 mmol k phos Results & Data ([facility]) Vital Signs (Past 12 Hours) Vital Signs Temp Pulse Pulse Resp BP BP Pulse Ox 06/20/21 08:21 36.7 C 66 18 132/68 92 06/20/21 04:01 36.6 C 67 18 150/81 H 94 06/19/21 23:53 36.7 C 77 18 122/78 93
[2021-06-20] MEDS ORDERED: POTASSIUM PHOSPHATE 15 MMOL in SODIUM CHLORIDE 0.9% 250 ML IV ONE (10:00)
--- NOTE | 2021-06-20 15:44 | Hospitalist Progress Note ---
Date of Service June 20, 2021 Assessment & Plan (1) Acute metabolic encephalopathy: Plan: 75 y/o M with PMH of HTN, HLD, h/o pacemaker, abdominal aortic aneurysm, ischemic cardiomyopathy, reported cognitive disorder with possible dementia presented to ER 06/16 from [facility] for confusion and hypoxia. He is being managed for the following: #. Hypernatremia- significantly improved on D5W, continue, repeat labs in am. #. Acute metabolic encephalopathy 06/07 above- significantly improved, likely back to baseline. Patient was brought with confusion and hypoxia, found to have sodium level of 167, likely secondary to recent diarrheal episode & not eating and drinking for the last few days. Reported patient often needs reminders to eat and drink per documentation. Admitting CT head negative for any acute intracranial findings. Admitting CXR with no signs of pneumonia. Admitting lactate and procalcitonin WNL. Admitting UA negative for UTI. Patient AO x2 at bedside exam. More alert today. 06/19: Speech evaluated, started on easy to chew diet. RN to downgrade to minced and moist if difficulty with textures. Sodium level gradually improving now down to 149, patient on IV fluids per nephrology, appreciate nephrology recommendations. BMP daily and as needed.. #. Hypoxia on arrival- resolved. On room air. VQ scan and bilateral LE doppler negative. #. BILL- resolved. Cr down to baseline. N #. GI bleed- Patient had melanotic stool per RN, FOBT was positive on 06/19. Heparin drip discontinued. On sc heparin, Hb stable. Continue PPI. He will need outpatient GI follow-up for FOBT positive. (8) HTN (hypertension): Plan: resume irbesartan as indicated (9) HLD (hyperlipidemia): Plan: Continue rosuvastatin DVT Prophylaxis- sc heparin Full Code as per discussion with pt Follows with [facility] for routine care Admission and Anticipated Discharge Date Admission Date: June 16, 2021 Subjective Patient was seen and examined at bedside. Patient was sleeping comfortably but easily awoken when called. Asks 'why he has to be here'. Denies any pain or active issues. Reinforced regarding good oral intake. Physical Exam Physical Exam: GENERAL: Alert and oriented x2. NAD HEENT: No pallor, no icterus. Pupi ls equal, round an d reactive to darian millard Oral mucosa dr nunez HEART: Regular rate and rhythm. Normal heart soun ds. No murmur, no gallop. RESPIRATOR Y SYSTEM: Breathi ng comfortably in room air, No acces berenice muscle use. No wheezing, no cr ackles. ABDOMEN: Soft, bowel sounds present, nontende r, no distention. CENTRAL NERVOUS SY STEM: AAOx2, Spe ech is clear. Obe ys simple commands . Moves extremiti es. EXTREMITIES: No edema, no eryth alfredo seen. Results & Data Results & Data ([facility]) Vital Signs (Past 12 Hours) Vital Signs Temp Pulse Pulse Resp BP BP Pulse Ox 06/20/21 15:08 36.3 C L 68 18 129/74 97 06/20/21 11:26 36.4 C L 69 16 129/81 94 06/20/21 08:21 36.7 C 66 18 132/68 92 06/20/21 04:01 36.6 C 67 18 150/81 H 94 Laboratory Results Short CBC 06/20/21 Range/Units 07:35 WBC 6.95 (4.8-10.8) K/uL Hgb 13.1 L (14.0-18.0) g/dL Hct 42.3 (42-52) % Plt Count 154 (130-400) K/uL BMP 06/20/21 07:35 Sodium 149 H Potassium 3.3 L Chloride 119 H Carbon Dioxide 24 BUN 24 H Creatinine 1.27 Glucose 130 H Calcium 8.1 L Diagnostic Findings Reviewed personally Medications Administered Current Inpatient Medications Acetaminophen (Acetaminophen 325 Mg Tab) 650 mg PO Q4H PRN PRN Reason: Pain or Fever Stop: 07/17/21 00:00 Heparin Sodium (Porcine) (Heparin Sod 5,000 Unit/0.5 Ml Vial) 5,000 units SQ Q12 HANG Stop: 07/19/21 20:59 Last Admin: 06/20/21 08:30 Dose: 5,000 units Documented by: Dextrose (D5w) 1,000 mls @ 100 mls/hr IV .Q10H HANG Stop: 07/16/21 20:44 Last Admin: 06/20/21 15:30 Dose: 100 mls/hr Documented by: Pantoprazole Sodium (Pantoprazole 40 Mg Tab) 40 mg PO BID HANG Stop: 07/19/21 20:59 Last Admin: 06/20/21 08:31 Dose: 40 mg Documented by: Rosuvastatin Calcium (Rosuvastatin Calcium 5 Mg Tab) 5 mg PO HS [facility] Stop: 07/17/21 00:00 Last Admin: 06/19/21 21:25 Dose: 5 mg Documented by:
[2021-06-20] MEDS: ROSUVASTATIN CALCIUM 5 MG TAB PO SCH (20:50)
[2021-06-21] MEDS: DEXTROSE 5% 1,000 ML IV SCH (01:37)
[2021-06-21 07:55] LABS: BUN Creatinine Ratio 13.6 (10-20); Calcium 7.9 mg/dl (8.5-10.1); Creatinine Clr Calc Pharmacy 54.3 ml/min; Est GFR (African American) 60.3 ml/min; Magnesium 2.2 mg/dl (1.7-2.4); Phosphorus 2.3 mg/dl (2.5-4.9); Potassium 3.2 mmol/L (3.5-5.1)
[2021-06-21] MEDS: PANTOprazole 40 MG TAB PO SCH ×2 (08:45→21:08)
[2021-06-21] MEDS: HEPARIN SOD 5,000 UNIT/0.5 ML VIAL SQ SCH ×2 (08:45→21:08)
[2021-06-21] MEDS ORDERED: POTASSIUM CHLORIDE CRTAB 20 MEQ TABCR PO STA (09:06)
[2021-06-21] MEDS: POT PHOSPHATE MONOBASIC W/ SOD TAB PO SCH ×4 (10:17→21:08)
--- NOTE | 2021-06-21 11:29 | Hospitalist Progress Note ---
Date of Service June 21, 2021 Assessment & Plan (1) Acute metabolic encephalopathy: Plan: 75 y/o M with PMH of HTN, HLD, h/o pacemaker, abdominal aortic aneurysm, ischemic cardiomyopathy, reported cognitive disorder with possible dementia presented to ER 06/16 from [facility] for confusion and hypoxia. Patient was found to have sodium level of 167, likely secondary to recent diarrheal episode & not eating and drinking for the last few days. Reported patient often needs reminders to eat and drink per documentation. On admission, CT head negative for any acute intracranial findings and CXR with no signs of pneumonia. Lactate and procalcitonin WNL. UA negative for UTI. Started on D5W with resolution of his hypernatremia and encephalopathy. #. Acute Hypernatremia- due to poor oral intake and diarrheal episode. sodium down to 141 from 167 on admission, resolved on D5W, will discontinue. Recheck in am. Recommended good oral intake. Nephrology following. #. Acute metabolic encephalopathy / above- resolved, back to baseline. # Positive blood culture. Blood clx on admission growing gram positive bacteria in 1/ culture. Patient stable off of antibiotics, no leucocytosis, fever or concern for sepsis. Possible contamination, discussed with microbiology- will follow up tomorrow for more information. In the meantime, will monitor off of antibiotics and follow final culture. If fever or clinical change, will start empiric antibiotics and consider ID evaluation. # hypokalemia- repleted, recheck in am # hypophosphatemia- repleted, recheck in am #. Hypoxia on arrival- resolved. On room air. VQ scan and bilateral LE doppler negative. # HTN (hypertension): resume irbesartan as indicated # HLD (hyperlipidemia): continue rosuvastatin #. BLIL- resolved. Cr down to baseline. #. GI bleed- Patient had melanotic stool per RN, FOBT was positive on 06/19. Heparin drip since discontinued. On sc heparin, Hb stable. Continue PPI. He will need outpatient GI follow-up as FOBT positive. DVT Prophylaxis- sc heparin Full Code Follows with [facility] for routine care Disposition- Pending final culture results. Admission and Anticipated Discharge Date Admission Date: June 16, 2021 Subjective Patient was seen and examined at bedside. Awake, alert conversing well. Denies any issues. No fever, chills, nausea or vomiting. Reinforced regarding good oral intake. Physical Exam Physical Exam: General- AAO, conversing well, not in any distress, on room air Chest- Clear bilaterally, no wheezes or crackles CVS- Regular rate and rhythm, normal heart sounds, no murmur Abdomen- Soft, non tender, not distended, bowel sounds present Neuro- AAO, answering questions appropriately, moving all extremities, non focal Extremities-no cyanosis, edema or rash Results & Data Results & Data ([facility]) Vital Signs (Past 12 Hours) Vital Signs Temp Pulse Pulse Resp BP BP Pulse Ox 06/21/21 07:54 37 C 73 16 122/65 94 06/21/21 07:53 76 06/21/21 03:56 37.1 C 71 18 126/77 94 Laboratory Results BMP 06/21/21 07:08 Sodium 141 Potassium 3.2 L Chloride 111 H Carbon Dioxide 25 BUN 18 Creatinine 1.32 Glucose 132 H Calcium 7.9 L Diagnostic Findings Reviewed. Medications Administered Current Inpatient Medications Acetaminophen (Acetaminophen 325 Mg Tab) 650 mg PO Q4H PRN PRN Reason: Pain or Fever Stop: 07/17/21 00:00 Heparin Sodium (Porcine) (Heparin Sod 5,000 Unit/0.5 Ml Vial) 5,000 units SQ Q12 HANG Stop: 07/19/21 20:59 Last Admin: 06/21/21 08:45 Dose: 5,000 units Documented by: Pantoprazole Sodium (Pantoprazole 40 Mg Tab) 40 mg PO BID HANG Stop: 07/19/21 20:59 Last Admin: 06/21/21 08:45 Dose: 40 mg Documented by: Potassium Phosphate (Pot Phosphate Monobasic W/ Sod Tab) 1 tab PO QID HANG Stop: 07/21/21 12:59 Rosuvastatin Calcium (Rosuvastatin Calcium 5 Mg Tab) 5 mg PO HS HANG Stop: 07/17/21 00:00 Last Admin: 06/20/21 20:50 Dose: 5 mg Documented by:
--- NOTE | 2021-06-21 14:36 | Nephrology Progress Note ---
Date of Service June 21, 2021 Assessment & Plan (1) Hypernatremia: Plan: resolved w/ IV fluids; still getting NS at 80 mL hourly; likely to recur if not taking po reliably BILL and low phos improved w/ supportive care low K addressed today w/ po K -daily bmp while in house -ok from neph standpoint to stop IV fluids > changed him to 1/2 NS rather than NS d/t hyperchloremia -no renal follow up needed -encourage po fluids will sign off Admission and Anticipated Discharge Date Admission Date: June 16, 2021 Subjective no interval events; denies sob, uncontrolled pain in abdomen or musculoskeletal; no n/v Review of Systems Review of Systems: All systems reviewed & are unremarkable except as noted in Subjective Physical Exam Constitutional: well developed and well nourished lying flat on RA, no distress Eyes: EOM intact bilaterally ENMT: Ears: no external ear abnormality Nose: no external nose abnormality Mouth: + dry oral mucous membranes Neck: no nuchal rigidity Respiratory: normal respiratory effort Auscultation: + diminished lung sounds Cardiovascular: RRR, no murmur, no edema Gastrointestinal (Abdomen): Inspection/Auscultation: normal bowel sounds Percussion/Palpation: abdomen soft; abdomen nontender Musculoskeletal: Extremities: strength 5/5 throughout Skin: no rashes, warm and dry Neurologic: ruffin, fluent speech, no tremor Psychiatric: Orientation: oriented x 3 Results & Data ([facility]) Vital Signs (Past 12 Hours) Vital Signs Temp Pulse Pulse Resp BP BP Pulse Ox 06/21/21 12:13 36.5 C 75 17 112/67 93 06/21/21 07:54 37 C 73 16 122/65 94 06/21/21 07:53 76 06/21/21 03:56 37.1 C 71 18 126/77 94 Laboratory Results 06/20/21 07:35 06/21/21 07:08
[2021-06-21] MEDS ORDERED: SODIUM CHLORIDE 0.9% 500 ML IV SCH (14:45)
[2021-06-21] MEDS: SODIUM CHLORIDE 0.45 % 1,000 ML IV SCH (17:33)
[2021-06-21] MEDS: ROSUVASTATIN CALCIUM 5 MG TAB PO SCH (21:09)
[2021-06-22] MEDS: SODIUM CHLORIDE 0.45 % 1,000 ML IV SCH (05:31)
[2021-06-22] MEDS ORDERED: PROMETHAZINE HCL 12.5 MG in SODIUM CHLORIDE 0.9% 50 ML IV STA (06:08)
--- NOTE | 2021-06-22 07:21 | XRay Report ---
XR chest 1V portable CLINICAL HISTORY: aspiration. Evaluate for pneumonia. COMPARISON STUDY: 06/16/2021 TECHNIQUE: 1 view of the chest FINDINGS: Single frontal view of the chest demonstrates the cardiomediastinal silhouette to be within normal li mits. Permanent cardiac pacer is in place. The lungs are clear of alveolar opacities. There is no braxton dence for pleural effusion. There is no evidence for vascular congestion. There is no acute osseous p athology. IMPRESSION: 1. No acute cardiopulmonary disease. There is no significant interval change. ACT 112: Negative or not required by law. Electronically signed by: Dieter Dunlap M.D. 06/22/2021 7:19 AM
[2021-06-22 07:26] LABS: BUN Creatinine Ratio 13.7 (10-20); Calcium 8.3 mg/dl (8.5-10.1); Creatinine Clr Calc Pharmacy 44.5 ml/min; Est GFR (African American) 47.4 ml/min; Est GFR (Non-African American) 40.9 ml/min; Potassium 3.6 mmol/L (3.5-5.1)
[2021-06-22] MEDS ORDERED: ACETAMINOPHEN 1000 MG/100 ML IV IV ONE (08:03)
[2021-06-22] MEDS ORDERED: VANCOMYCIN CONSULT ACTIVE PRN (08:07)
[2021-06-22] MEDS ORDERED: VANCOMYCIN HCL 1,000 MG in SODIUM CHLORIDE 0.9% 250 ML IV STA (08:07)
[2021-06-22 08:38] LABS: Basophils # (auto) 0.03 K/uL (0-0.2); Basophils % (auto) 0.3 %; Eosinophils # (auto) 0.17 K/uL (0-0.5); Eosinophils % (auto) 1.7 %; Hematocrit (blood only) 44.2 % (42-52); Hemoglobin 14.5 g/dL (14.0-18.0); Immature Granulocytes # (auto) 0.02 K/uL (0.00-0.02); Immature Granulocytes % (auto) 0.2 %; Lymphocytes # (auto) 0.85 K/uL (1.2-3.4); Lymphocytes % (auto) 8.4 %; Mean Corpuscular Hemoglobin 31.9 pg (25-34); Mean Corpuscular Volume 97.1 fL (80-100); Mean Platelet Volume 11.6 fL (7.4-10.4); Monocytes # (auto) 1.01 K/uL (0.11-0.59); Neutrophils # (auto) 8.01 K/uL (1.4-6.5); Neutrophils % (auto) 79.4 %; Platelet Count 171 K/uL (130-400); RDW Coefficient of Variation 14.5 % (11.5-14.5); RDW Standard Deviation 50.6 fL (36.4-46.3); Red Blood Count 4.55 M/uL (4.7-6.1); White Blood Count 10.09 K/uL (4.8-10.8)
[2021-06-22 08:40] LABS: Base Excess ABG -2.2 mEq/L (-9-1.8); HCO3 ABG 19 mmol/L (19-24); Oxygen Saturation ABG 92.7 % (90-95); PCO2 ABG 26 mmHg (35-46); PO2 ABG 60 mmHg (80-95); pH ABG 7.49 (7.35-7.45)
[2021-06-22 08:41] LABS: Mean Corpuscular Hgb Conc 32.8 g/dL (32-36)
[2021-06-22 08:43] LABS: Allen Test Pos (Pos)
[2021-06-22] MEDS ORDERED: VANCOMYCIN HCL 1,500 MG in SODIUM CHLORIDE 0.9% 500 ML IV SCH (09:00)
--- NOTE | 2021-06-22 09:29 | Pharmacy Report ---
Pharmacy Vanc AUC Short Note - Date of Service June 22, 2021 - Assessment & Plan Assessment 75 year old M receiving Vancomycin and Cefepime for treatment of Febrile (unknown source of infection). Preliminary blood cultures grew Coryneacterium species. Plan Vancomycin * AUC/JOE is the preferred PK/PD target for vancomycin * AUC guided dosing is effective and associated with decreased risk of nephrotoxicity compared to traditional trough targets * Trough level of 16.1 mcg/mL is predicted to achieve target AUC/JOE of 400-600 mg/L.hr and may be associated with a 11% risk of nephrotoxicity * Vancomycin 1500mg x 1 followed by 1250mg IV Q24H Pharmacy will continue to follow and will adjust dose/frequency as necessary. Thank you.
[2021-06-22] MEDS: FAMOTIDINE 20 MG in SYRINGE 3 ML IV SCH ×2 (09:35→22:12)
[2021-06-22] MEDS: metroNIDAZOLE 500 MG/100 ML BAG IV SCH ×2 (09:36→16:48)
[2021-06-22] MEDS: HEPARIN SOD 5,000 UNIT/0.5 ML VIAL SQ SCH ×2 (10:23→21:24)
[2021-06-22] MEDS: CEFEPIME 2,000 MG in SYRINGE 0 ML IV SCH (10:24)
--- NOTE | 2021-06-22 13:00 | Hospitalist Progress Note ---
Date of Service June 22, 2021 Assessment & Plan (1) Acute metabolic encephalopathy: Plan: 75 y/o M with PMH of HTN, HLD, h/o pacemaker, abdominal aortic aneurysm, ischemic cardiomyopathy, reported cognitive disorder with possible dementia presented to ER 06/16 from [facility] for confusion and hypoxia. Patient was found to have sodium level of 167, likely secondary to recent diarrheal episode & not eating and drinking for the last few days. Reported patient often needs reminders to eat and drink per documentation. On admission, CT head negative for any acute intracranial findings and CXR with no signs of pneumonia. Lactate and procalcitonin WNL. UA negative for UTI. Started on D5W with resolution of his hypernatremia and encephalopathy. However, had episodes of vomiting overnight with high grade fever, concern for aspiration and started on empiric antibiotics #. Suspected aspiration pneumonia- Episodes of vomiting overnight with subsequent high fever and obtundation today raises concern for aspiration pneumonia although CXR overnight did not show any opacities, Procal elevated, WBC trending up but still WNL, lactate normal. Started on empiric vanc/cefepime/flagyl given sudden deterioration, augmentin allergy and pending blood clx results. Check MRSA, can discontinue vanc if negative. # Acute metabolic encephalopathy- likely from above. CO2 normal, ammonia normal. Electrolytes normal. On empiric antibiotics, monitor for improvement # Acute Hypernatremia- resolved. Hypernatremia due to poor oral intake and diarr heal episode. sodium down to 141 from 167 on admission, resolved on D5W. Recommend good oral intake when encephalopathy clears but will start on IVF for now. # Positive blood culture. Blood clx on admission growing gram positive bacteria in 1/2 culture. On empiric antibiotics now. Repeat blood clx ordered. F/u on blood clx # hypokalemia- resolved # hypophosphatemia- repleted yesterday. #. Hypoxia on arrival- resolved. On room air. VQ scan and bilateral LE doppler negative. # HTN (hypertension): resume irbesartan as indicated # HLD (hyperlipidemia): continue rosuvastatin #. BILL- resolved. Cr down to baseline. #. GI bleed- Patient had melanotic stool per RN, FOBT was positive on 06/19. Heparin drip since discontinued. On sc heparin, Hb stable. Continue PPI. He will need outpatient GI follow-up as FOBT positive. DVT Prophylaxis- sc heparin Full Code Follows with CHRISTIANA Montoya for routine care Disposition- Pending medical stability. On iv antibiotics now. Admission and Anticipated Discharge Date Admission Date: June 16, 2021 Subjective Change in overnight events noted. Patient is very lethargic and obtunded today. Had couple episodes of vomiting overnight along with high grade fever today. Physical Exam Physical Exam: General- Lethargic, not in acute distress, on room air Chest- Fair breath sounds anteriorly, no wheezes or crackles CVS- Tachycardic, normal heart sounds, no murmur Abdomen- Soft, non tender, not distended, bowel sounds present Neuro- Obtunded Extremities-no cyanosis, edema or rash Results & Data Results & Data ([facility]) Vital Signs (Past 12 Hours) Vital Signs Temp Pulse Pulse Resp BP BP Pulse Ox 06/22/21 11:33 36.9 C 100 H 20 101/65 91 06/22/21 10:42 120 H 06/22/21 09:34 37.4 C 06/22/21 07:42 39.4 C H 124 H 19 138/82 90 06/22/21 06:08 94 H 130/85 94 06/22/21 03:46 37.7 C H 101 H 16 124/82 93 Diagnostic Findings Laboratory Results WBC 10.09 K/uL (4.8-10.8) 06/22/21 08:16 RBC 4.55 M/uL (4.7-6.1) L 06/22/21 08:16 Hgb 14.5 g/dL (14.0-18.0) 06/22/21 08:16 Hct 44.2 % (42-52) 06/22/21 08:16 MCV 97.1 fL (80-100) 06/22/21 08:16 MCH 31.9 pg (25-34) 06/22/21 08:16 MCHC 32.8 g/dL (32-36) 06/22/21 08:16 RDW Std Deviation 50.6 fL (36.4-46.3) H 06/22/21 08:16 RDW Coeff of Delilah 14.5 % (11.5-14.5) 06/22/21 08:16 Plt Count 171 K/uL (130-400) 06/22/21 08:16 MPV 11.6 fL (7.4-10.4) H 06/22/21 08:16 Immature Gran % (Auto) 0.2 % 06/22/21 08:16 Neut % (Auto) 79.4 % 06/22/21 08:16 Lymph % (Auto) 8.4 % 06/22/21 08:16 [place] % (Auto) 10.0 % 06/22/21 08:16 Eos % (Auto) 1.7 % 06/22/21 08:16 Baso % (Auto) 0.3 % 06/22/21 08:16 Neut # (Auto) 8.01 K/uL (1.4-6.5) H 06/22/21 08:16 Lymph # (Auto) 0.85 K/uL (1.2-3.4) L 06/22/21 08:16 [place] # (Auto) 1.01 K/uL (0.11-0.59) H 06/22/21 08:16 Eos # (Auto) 0.17 K/uL (0-0.5) 06/22/21 08:16 Baso # (Auto) 0.03 K/uL (0-0.2) 06/22/21 08:16 Immature Gran # (Auto) 0.02 K/uL (0.00-0.02) 06/22/21 08:16 PT 13.1 Seconds (9.0-12.0) H 06/16/21 16:50 INR 1.3 (0.9-1.1) H 06/16/21 16:50 APTT 27.7 Seconds (21.0-31.0) 06/20/21 07:35 PTT Ratio 1.1 06/20/21 07:35 D-Dimer 7040 ug/L FEU (0-500) H* 06/16/21 16:50 ABG pH 7.49 (7.35-7.45) H 06/22/21 08:27 ABG pCO2 26 mmHg (35-46) L 06/22/21 08:27 ABG pO2 60 mmHg (80-95) L 06/22/21 08:27 ABG HCO3 19 mmol/L (19-24) 06/22/21 08:27 ABG O2 Saturation 92.7 % (90-95) 06/22/21 08:27 ABG Base Excess -2.2 mEq/L (-9-1.8) 06/22/21 08:27 Todd Test Pos (Pos) 06/22/21 08:27 Barometric Pressure 733.2 mm/Hg 06/22/21 08:27 Oxygen Given RA 06/22/21 08:27 Sodium 143 mmol/L (136-145) 06/22/21 06:39 Potassium 3.6 mmol/L (3.5-5.1) 06/22/21 06:39 Chloride 113 mmol/L (98-107) H 06/22/21 06:39 Carbon Dioxide 20 mmol/L (21-32) L 06/22/21 06:39 Anion Gap 10 (3-11) 06/22/21 06:39 BUN 22 mg/dl (6-23) 06/22/21 06:39 Creatinine 1.61 mg/dl (0.6-1.4) H 06/22/21 06:39 Est Cr Clr Drug Dosing 44.5 ml/min 06/22/21 06:39 Est GFR ( Amer) 47.4 ml/min 06/22/21 06:39 Est GFR (Non-Af Amer) 40.9 ml/min 06/22/21 06:39 BUN/Creatinine Ratio 13.7 (10-20) 06/22/21 06:39 Glucose 119 mg/dl (70-99(Fasting)) H 06/22/21 06:39 POC Glucose 118 mg/dl (70-99) H 06/22/21 06:16 Osmolality 378 mOsm/kg (280-300) H* 06/16/21 19:33 Lactate 1.3 mmol/L (0.4-2.0) 06/22/21 08:27 Calcium 8.3 mg/dl (8.5-10.1) L 06/22/21 06:39 Phosphorus 2.3 mg/dl (2.5-4.9) L 06/21/21 07:08 Magnesium 2.2 mg/dl (1.7-2.4) 06/21/21 07:08 Total Bilirubin 1.1 mg/dl (0.2-1.0) H 06/16/21 16:50 AST 54 U/L (13-39) H 06/16/21 16:50 ALT 51 U/L (7-52) 06/16/21 16:50 Alkaline Phosphatase 96 U/L (34-104) 06/16/21 16:50 Ammonia 43.0 umol/L (18-72) 06/22/21 08:27 Troponin I 0.08 ng/ml (0-0.04) H* 06/17/21 06:12 Total Protein 7.6 gm/dl (6.0-8.3) 06/16/21 16:50 Albumin 4.1 gm/dl (3.4-5.0) 06/16/21 16:50 Globulin 3.5 gm/dl (2.5-4.0) 06/16/21 16:50 Albumin/Globulin Ratio 1.2 (0.9-2) 06/16/21 16:50 Procalcitonin 0.71 ng/ml (0-0.5) H 06/22/21 08:16 TSH 0.425 uIu/ml (0.300-4.500) 06/16/21 19:33 Urine Color Dark Yellow 06/16/21 22:25 Urine Appearance Clear (Clear) 06/16/21 22:25 Urine pH 5.0 (4.5-7.5) 06/16/21 22:25 Ur Specific [place] 1.028 (1.000-1.030) 06/16/21 22:25 Urine Protein 1+ (Negative) H 06/16/21 22:25 Urine Glucose (UA) Negative (Negative) 06/16/21 22:25 Urine Ketones Trace (Negative) H 06/16/21 22:25 Urine Blood Negative (Negative) 06/16/21 22:25 Urine Nitrite Negative (Negative) 06/16/21 22:25 Urine Bilirubin 1+ (Negative) H 06/16/21 22:25 Urine Urobilinogen Negative (Negative) 06/16/21 22:25 Ur Leukocyte Esterase Negative (Negative) 06/16/21 22:25 Urine WBC (Auto) 1-5 /hpf (0-5) 06/16/21 22:25 Urine RBC (Auto) 5-10 /hpf (0-4) H 06/16/21 22:25 U Hyaline Cast (Auto) 10-30 /lpf (0-5) H 06/16/21 22:25 U Epithel Cells (Auto) 20-30 /lpf (0-5) H 06/16/21 22:25 Urine Bacteria (Auto) Negative (Negative) 06/16/21 22:25 Granular Casts 1-5 /lpf (0) H 06/16/21 22:25 Urine Osmolality 803 mOsm/kg (500-800) H 06/16/21 22:25 Ur Random Sodium 47 mmol/L 06/16/21 22:25 Stool Occult Bld Scrn Positive (Negative) A 06/19/21 13:30 SARS-CoV-2, RNA, NAAT NEGATIVE (NEGATIVE) 06/16/21 18:[address] 06/16/21 19:14 CT head/brain wo con CLINICAL HISTORY: acute confusion Technique: Contiguous axial CT images of the head were acquired from the base of the skull to the vertex without intravenous contrast administration. Images were viewed in brain, subdural and bone windows. Automated dose lowering techniques and/or adjustment according to patient size were utilized for this exam. Comparison: None available at the time of this dictation. Findings: Areas of decreased attenuation are present in the periventricular and subcortical white matter bilaterally consistent with small vessel ischemic disease. Generalized cerebral atrophy with commensurate enlargement of the ventricles, sulci, and cisterns is also present. There is no acute intracranial hemorrhage or evidence of acute territorial infarction. No shift of the midline structures, mass effect, or extra-axial abnormalities are shown. Atherosclerotic calcifications are present in the intracranial segments of the internal carotid arteries. 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 Imaged portions of the paranasal sinuses and mastoid air cells are clear. The orbits appear normal. There are no acute fractures of the calvaria or scalp swelling. Impression: No acute intracranial hemorrhage, no evidence of acute territorial infarction or other acute intracranial disease process. ACT 112: Negative or not required by law. Electronically signed by: Familia Orantes M.D. 06/16/2021 8:19 PM Venous Doppler Study 06/16/21 21:02 US venous doppler LE [place] CLINICAL HISTORY: r/o dvt COMPARISON: None available at the time of this dictation. TECHNIQUE: Bilateral lower extremity real-time compression venous ultrasound with Color Doppler imaging. Utilizing real-time ultrasonic imaging multiple real time high-resolution ultrasonic images with compression and noncompression maneuvers of the deep venous system in addition to color doppler imaging were performed from the common femoral vein through the proximal calf veins. FINDINGS: Currently there is normal compressibility of the deep venous system from the common femoral vein through the proximal calf veins. No current evidence of acute thrombosis is identified. Impression: No evidence of deep venous thrombus. ACT 112: Negative or not required by law. Electronically signed by: Familia Orantes M.D. 06/16/2021 10:11 PM Pulmonary Perfusion Imaging 06/19/21 11:23 NUCLEAR PULMONARY PERFUSION SCAN CLINICAL HISTORY: Elevated d-dimer. COMPARISON STUDY: Chest x-ray dated 06/16/2021. TECHNIQUE: Nuclear pulmonary perfusion scan of both lungs was performed following the IV administration of 5. mCi of technetium 99m MAA. Images were acquired in the anterior, posterior, and oblique projections. FINDINGS: A chest x-ray performed 06/16/2021 shows cardiomegaly and a cardiac pacemaker. No airspace consolidation or large pleural effusion is identified. No perfusion defects are identified on the perfusion imaging. IMPRESSION: No perfusion defects are identified to suggest pulmonary embolus. ACT 112: Negative or not required by law. Electronically signed by: Kurt Cordero M.D. 06/19/2021 2:16 PM Chest X-Ray 06/22/21 06:49 XR chest 1V portable CLINICAL HISTORY: aspiration. Evaluate for pneumonia. COMPARISON STUDY: 06/16/2021 TECHNIQUE: 1 view of the chest FINDINGS: Single frontal view of the chest demonstrates the cardiomediastinal silhouette to be within normal limits. Permanent cardiac pacer is in place. The lungs are clear of alveolar opacities. There is no evidence for pleural effusion. There is no evidence for vascular congestion. There is no acute osseous pathology. IMPRESSION: 1. No acute cardiopulmonary disease. There is no significant interval change. ACT 112: Negative or not required by law. Electronically signed by: Dieter Dunlap M.D. 06/22/2021 7:19 AM Medications Administered Current Inpatient Medications Acetaminophen (Acetaminophen 325 Mg Tab) 650 mg PO Q4H PRN PRN Reason: Pain or Fever Stop: 07/17/21 00:00 Heparin Sodium (Porcine) (Heparin Sod 5,000 Unit/0.5 Ml Vial) 5,000 units SQ Q12 [facility]ANG Stop: 07/19/21 20:59 Last Admin: 06/22/21 10:23 Dose: 5,000 units Documented by: Sodium Chloride (1/2 Nss) 1,000 mls @ 80 mls/hr IV .[id number] [facility] Stop: 07/21/21 17:29 Last Admin: 06/22/21 05:31 Dose: 80 mls/hr Documented by: Cefepime HCl 2,000 mg/ Syringe 20 mls @ 5 mls/min IV Q24H [facility]; Protocol Stop: 06/29/21 09:59 Last Admin: 06/22/21 10:24 Dose: 5 mls/min Documented by: Metronidazole (Flagyl) 500 mg in 100 mls @ 100 mls/hr IV Q8H [facility]; Protocol Stop: 06/24/21 08:59 Last Infusion: 06/22/21 10:52 Dose: Infused Documented by: Famotidine 20 mg/ Syringe 5 mls @ 2.5 mls/min IV BID [facility] Stop: 07/22/21 08:59 Last Admin: 06/22/21 09:35 Dose: 2.5 mls/min Documented by: Vancomycin HCl 1,500 mg/ (Sodium Chloride) 530 mls @ 200 mls/hr IV TODAY@0900 [facility] Stop: 07/06/21 08:59 Last Admin: 06/22/21 10:16 Dose: 200 mls/hr Documented by: Vancomycin HCl 1,250 mg/ (Sodium Chloride) 275 mls @ 200 mls/hr IV Q24H [facility] Stop: 07/07/21 08:59 Lactated Ringer's (Lr) 1,000 mls @ 100 mls/hr IV .Q10H [facility] Stop: 06/22/21 23:00 Miscellaneous Information (Vancomycin Consult Active) 1 ea N/A UD PRN PRN Reason: Consult Stop: 07/22/21 08:06 Rosuvastatin Calcium (Rosuvastatin Calcium 5 Mg Tab) 5 mg PO HS [facility] Stop: 07/17/21 00:00 Last Admin: 06/21/21 21:09 Dose: 5 mg Documented by:
[2021-06-22] MEDS ORDERED: LACTATED RINGER'S 1,000 ML IV ONE (13:01)
[2021-06-22] MEDS: ROSUVASTATIN CALCIUM 5 MG TAB PO SCH (21:30)
[2021-06-23] MEDS: metroNIDAZOLE 500 MG/100 ML BAG IV SCH (00:31)
[2021-06-23 06:53] LABS: Basophils # (auto) 0.01 K/uL (0-0.2); Basophils % (auto) 0.2 %; Eosinophils # (auto) 0.37 K/uL (0-0.5); Eosinophils % (auto) 6.2 %; Hematocrit (blood only) 38.5 % (42-52); Hemoglobin 12.6 g/dL (14.0-18.0); Immature Granulocytes # (auto) 0.01 K/uL (0.00-0.02); Immature Granulocytes % (auto) 0.2 %; Lymphocytes # (auto) 0.99 K/uL (1.2-3.4); Lymphocytes % (auto) 16.7 %; Mean Corpuscular Hemoglobin 31.9 pg (25-34); Mean Corpuscular Hgb Conc 32.7 g/dL (32-36); Mean Corpuscular Volume 97.5 fL (80-100); Mean Platelet Volume 11.6 fL (7.4-10.4); Monocytes # (auto) 0.86 K/uL (0.11-0.59); Monocytes % (auto) 14.5 %; Neutrophils # (auto) 3.69 K/uL (1.4-6.5); Neutrophils % (auto) 62.2 %; Platelet Count 126 K/uL (130-400); RDW Coefficient of Variation 14.8 % (11.5-14.5); RDW Standard Deviation 52.5 fL (36.4-46.3); Red Blood Count 3.95 M/uL (4.7-6.1); White Blood Count 5.93 K/uL (4.8-10.8)
[2021-06-23 07:12] LABS: BUN Creatinine Ratio 15.1 (10-20); Calcium 7.6 mg/dl (8.5-10.1); Creatinine Clr Calc Pharmacy 59.8 ml/min; Est GFR (African American) 68.4 ml/min; Phosphorus 2.3 mg/dl (2.5-4.9); Potassium 3.3 mmol/L (3.5-5.1)
[2021-06-23 07:19] LABS: RBC Morphology Unremarkable
[2021-06-23] MEDS ORDERED: POTASSIUM CHLORIDE CRTAB 20 MEQ TABCR PO STA (08:41)
[2021-06-23] MEDS ORDERED: VANCOMYCIN HCL 1,250 MG in SODIUM CHLORIDE 0.9% 250 ML IV SCH (09:00)
[2021-06-23] MEDS: HEPARIN SOD 5,000 UNIT/0.5 ML VIAL SQ SCH ×2 (09:32→20:17)
[2021-06-23] MEDS: POT PHOSPHATE MONOBASIC W/ SOD TAB PO SCH ×4 (09:34→20:18)
[2021-06-23] MEDS: CEFEPIME 2,000 MG in SYRINGE 0 ML IV SCH ×2 (09:52→21:48)
[2021-06-23] MEDS: FAMOTIDINE 20 MG in SYRINGE 3 ML IV SCH ×2 (09:53→21:47)
--- NOTE | 2021-06-23 19:00 | Hospitalist Progress Note ---
Date of Service June 23, 2021 Assessment & Plan (1) Hypernatremia: (2) Fever: Plan: per Dr. Skinner's notes with addendum: (1) Acute metabolic encephalopathy: Plan: 75 y/o M with PMH of HTN, HLD, h/o pacemaker, abdominal aortic aneurysm, ischemic cardiomyopathy, reported cognitive disorder with possible dementia presented to ER 06/16 from [facility] for confusion and hypoxia. Patient was found to have sodium level of 167, likely secondary to recent diarrheal episode & not eating and drinking for the last few days. Reported patient often needs reminders to eat and drink per documentation. On admission, CT head negative for any acute intracranial findings and CXR with no signs of pneumonia. Lactate and procalcitonin WNL. UA negative for UTI. Started on D5W with resolution of his hypernatremia and encephalopathy. However, had episodes of vomiting overnight with high grade fever, concern for aspiration and started on empiric antibiotics #. Suspected aspirationpneumonia-Episodes of vomiting overnight with subsequent high fever and obtundation today raises concern for aspiration pneumonia although CXR overnight did not show any opacities, Procal elevated, WBC trending up but still WNL, lactate normal. Started on empiric vanc/cefepime/flagyl given sudden deterioration, augmentin allergy and pending blood clx results. Check MRSA, can discontinue vanc if negative. 06/24 aspiration unlikely, CXR clear afebrile today no leukocytosis repeat BC: pending no clear source of infection continue empiric IV Abx monitor closely #Acute metabolic encephalopathy- likely from above. CO2 normal, ammonia normal. Electrolytes normal. -- oriented, answers all questions appropriately # Acute Hypernatremia-resolved. Hypernatremia due to poor oral intake and diarrheal episode. sodium down to 141 from 167 on admission,resolved on D5W. # Positive blood culture.Blood clx on admission growing gram positive bacteria in 1/2 culture. On empiric antibiotics now. Repeat blood clx ordered. F/u on blood clx # hypokalemia-resolved # hypophosphatemia-repleted #. Hypoxiaon arrival- resolved. On room air. VQ scan and bilateral LE doppler negative. # HTN (hypertension): resume irbesartan as indicated # HLD (hyperlipidemia):continue rosuvastatin #. BILL-resolved. Cr down to baseline. #. GI bleed-Patient had melanotic stool per RN, FOBT was positive on 06/19. Heparin drip since discontinued. On sc heparin, Hb stable. Continue PPI. He will need outpatient GI follow-up as FOBT positive. DVT Prophylaxis- sc heparin Full Code Follows with CHRISTIANA Montoya for routine care Disposition- Pending medical stability. On iv antibiotics now. Admission and Anticipated Discharge Date Admission Date: June 16, 2021 Subjective ff up for hypernatremia, fever, etc seen resting in bed, sleeping but easily awakened oriented x 2 answers questions appropriately states he feels fine overall no headache, dizziness, chest pain, cough, dyspnea, abdominal pain, nausea/vomiting no other symptoms Review of Systems Review of Systems: all noted and negative except for above Physical Exam Physical Exam: General- oriented x 2, not in distress, speaks in sentences with no effort or accessory muscle use Eyes- anicteric Neck- no JVD Lungs- clear breath sounds bilaterally, no rales/wheezes Heart- normal rate, regular rhythm; no murmurs Abdomen- normal bowel sounds, nondistended, soft, nontender Extremities- no pretibial edema, no calf tenderness Neuro- alert, oriented x 2; no gross focal neurologic deficits Skin- warm & dry Results & Data Results & Data ([facility]) Vital Signs (Past 12 Hours) Vital Signs Temp Pulse Pulse Pulse Resp BP BP 06/23/21 18:05 84 06/23/21 16:11 37.1 C 82 16 116/76 06/23/21 12:11 36.8 C 81 18 131/63 06/23/21 12:04 78 06/23/21 07:52 36.7 C 81 16 127/78 Pulse Ox 06/23/21 18:05 06/23/21 16:11 95 06/23/21 12:11 95 06/23/21 12:04 06/23/21 07:52 94 all noted and reviewed including below
[2021-06-23] MEDS: ROSUVASTATIN CALCIUM 5 MG TAB PO SCH (20:17)
[2021-06-23] MEDS: SODIUM CHLORIDE 0.45 % 1,000 ML IV SCH (20:21)
[2021-06-24 06:41] LABS: BUN Creatinine Ratio 14.9 (10-20); Calcium 7.7 mg/dl (8.5-10.1); Creatinine Clr Calc Pharmacy 75.7 ml/min; Est GFR (African American) 90.9 ml/min; Est GFR (Non-African American) 78.4 ml/min; Potassium 3.3 mmol/L (3.5-5.1)
[2021-06-24] MEDS: CEFEPIME 2,000 MG in SYRINGE 0 ML IV SCH (09:04)
[2021-06-24] MEDS: FAMOTIDINE 20 MG in SYRINGE 3 ML IV SCH (09:04)
[2021-06-24] MEDS: HEPARIN SOD 5,000 UNIT/0.5 ML VIAL SQ SCH (09:13)
[2021-06-24] MEDS: SODIUM CHLORIDE 0.45 % 1,000 ML IV SCH (09:13)
[2021-06-24] MEDS ORDERED: POTASSIUM CHLORIDE CRTAB 20 MEQ TABCR PO SCH (09:15)
--- NOTE | 2021-06-24 12:08 | Hospitalist Progress Note ---
Date of Service June 24, 2021 Assessment & Plan (1) Hypernatremia: Plan: per Dr. Skinner's notes with addendum: 75 y/o M with PMH of HTN, HLD, h/o pacemaker, abdominal aortic aneurysm, ischemic cardiomyopathy, reported cognitive disorder with possible dementia p resented to ER 06/16 from [facility] for confusion and hypoxia. Patient was found to have sodium level of 167, likely secondary to recent diarrheal episode & not eating and drinking for the last few days. Reported patient often needs reminders to eat and drink per documentation. On admission, CT head negative for any acute intracranial findings and CXR with no signs of pneumonia. Lactate and procalcitonin WNL. UA negative for UTI. Started on D5W with resolution of his hypernatremia and encephalopathy. However, had episodes of vomiting overnight with high grade fever, concern for aspiration and started on empiric antibiotics #Acute metabolic encephalopathy --Likely secondary to acute hyponatremia CO2 normal, ammonia normal. Electrolytes normal. -- oriented, answers all questions appropriately --Discussed with correctional officers, patient observed to have cognitive decline even at the correctional facility Will benefit from formal neurological evaluation as outpatient for possible underlying cognitive disorder/dementia # Acute Hypernatremia-resolved -- Hypernatremia due to poor oral intake and diarrheal episode. sodium down to 141 from 167 on admission,resolved withn D5W. #. Suspected aspirationpneumonia-Episodes of vomiting during admission with subsequent high fever and obtundation today raises concern for aspiration pneumonia CXR: clear Started on empiric vanc/cefepime/flagyl given sudden deterioration 06/24 aspiration pneumonia ruled out afebrile x 2 days no leukocytosis initial Blood culture: Corynebacterium in 1 bottle repeat Blood culture: negative no clear source of infection monitor as outpatient # hypokalemia-resolved # hypophosphatemia-repleted #. Hypoxia --on arrival- resolved. On room air. VQ scan and bilateral LE doppler negative. # HTN (hypertension) -- BP ok off Irbesartan monitor BP daily # HLD (hyperlipidemia):continue rosuvastatin #. Acute kidney injury-resolved. Cr down to baseline. #. GI bleed-Patient had melanotic stool per RN, FOBT was positive on 06/19. Heparin drip since discontinued. On sc heparin, Hb stable ~ 13. Continue PPI. He will need outpatient GI follow-up as FOBT positive. DVT Prophylaxis- given sc heparin Full Code Follows with [facility] for routine care Disposition- return to [facility] Admission and Anticipated Discharge Date Admission Date: June 16, 2021 Subjective ff up for acute metabolic encephalopathy, hypernatremia, etc. Seen with correctional officers at the bedside Awake, alert, answers most questions appropriately Smiling, in good spirits States he feels fine overall Denies headache, dizziness, cough, shortness of breath, abdominal pain, nausea vomiting, problems with urination or bowel movement No other symptoms Per correctional officers, patient is at his baseline mental status Patient states he is ready for discharge today Review of Systems Review of Systems: all noted and negative except for above Physical Exam Physical Exam: General- oriented x 2, not in distress, speaks in sentences with no effort or accessory muscle use Eyes- anicteric Neck- no JVD Lungs- clear breath sounds bilaterally, no rales/wheezes Heart- normal rate, regular rhythm; no murmurs Abdomen- normal bowel sounds, nondistended, soft, nontender Extremities- no pretibial edema, no calf tenderness Neuro- alert, oriented x 2; no new gross focal neurologic deficits Skin- warm & dry Results & Data Results & Data ([facility]) Vital Signs (Past 12 Hours) Vital Signs Temp Pulse Resp BP Pulse Ox 06/24/21 08:17 36.5 C 74 20 119/64 97 06/24/21 03:00 36.4 C L 74 20 117/72 93 all noted and reviewed including below
--- NOTE | 2021-06-24 12:19 | Discharge Summary ---
Date of Service June 24, 2021 Admission HPI Per Admitting Provider Patient is 75 y/o M with PMH HTN, HLD, h/o pacemaker, abdominal aortic aneurysm, ischemic cardiomyopathy, reported cognitive disorder with possible dementia presented to ER from [facility] for confusion and hypoxia. History obtained from staff from [facility]. Reports that 3 weeks ago patient reported headache, sore throat and he had positive COVID-19 test on 05/26/2021. Reports [facility] until 3 days ago when he was sent back to his cell. Reports while at [facility] noted that patient seemed to have his baseline confusion and not oriented to year however usually oriented to time and place. Reported patient with intermittent confusion and then a return to baseline. Lowest oxygen saturation recorded in low 90s. States 1-1/2 weeks ago had diarrhea that lasted 1.5 days. Denies any known vomiting. Reports some days patient would need to be reminded to eat and drink. Patient did receive as needed ibuprofen, guaifenesin. Past 3 days patient has been in his cell in which she has access to Crestor and irbesartan only. It is unsure if patient has been taking medicines or taking medicines correctly. It is reported his cellmate reports that patient has not ate or drink for the past 3 days. Today it is reported patient was more confused than usual and had oxygen sat of 85% on room air and was transferred to ER. Reported COVID-19 vaccination ([place]) 09/06/20 & 03/20/21. Currently limited history obtained from patient secondary to his confusion. Patient states has chronic tingling sensation of bilateral feet and denies noting a change. He denies any current complaints including fever/chills, N/V/D/C, AMIN, dizziness, CP, SOB, palpitations, cough, sore throat, abdominal pain, extremity edema, rashes, urinary symptoms. Unable to obtain FH and thorough PMH/social history secondary to confusion. Today in ER O2 sats down to 80's on RA, 99% on 3L oxymask, remaining labs stable. Initial labs Na: 167, Cl: 128, Cr: 2.7. CXR: no acute disease Admission Exam (Per Admitting) Constitutional General: no distress, WDWN Head: normocephalic, atraumatic Eyes: PERRL, EOM's intact, conjunctiva non-injected, anicteric ENT: normal inspection external ears, nose, mucous membranes dry Neck: supple, trachea midline Lungs: clear, no respiratory distress, no wheezing/rhonchi/rales CV: RRR, no murmur, no pretibial edema Abd: normal BS, soft, non-tender Ext: no cyanosis, no calf tenderness Neuro: Alert, oriented to person. Not oriented to place or time. Says is 2013, unable to tell month, day or president. no focal deficits noted, normal affect Skin: warm, dry Discharge Data Consultations 06/16/21 18:40 ED Decision to Admit Stat 06/16/21 20:38 Consult Nephrology Stat 06/16/21 20:40 Consult Nephrology Routine Procedures Performed CT head/brain wo con CLINICAL HISTORY: acute confusion Technique: Contiguous axial CT images of the head were acquired from the base of the skull to the vertex without intravenous contrast administration. Images were viewed in brain, subdural and bone windows. Automated dose lowering techniques and/or adjustment according to patient size were utilized for this exam. Comparison: None available at the time of this dictation. Findings: Areas of decreased attenuation are present in the periventricular and subcortical white matter bilaterally consistent with small vessel ischemic disease. Generalized cerebral atrophy with commensurate enlargement of the ventricles, sulci, and cisterns is also present. There is no acute intracranial hemorrhage or evidence of acute territorial infarction. No shift of the midline structures, mass effect, or extra-axial abnormalities are shown. Atherosclerotic calcifications are present in the intracranial segments of the internal carotid arteries. 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 Imaged portions of the paranasal sinuses and mastoid air cells are clear. The orbits appear normal. There are no acute fractures of the calvaria or scalp swelling. Impression: No acute intracranial hemorrhage, no evidence of acute territorial infarction or other acute intracranial disease process. ACT 112: Negative or not required by law. Electronically signed by: Familia Orantes M.D. 06/16/2021 8:19 PM US venous doppler [place] CLINICAL HISTORY: r/o dvt COMPARISON: None available at the time of this dictation. TECHNIQUE: Bilateral lower extremity real-time compression venous ultrasound with Color Doppler imaging. Utilizing real-time ultrasonic imaging multiple real time high-resolution ultrasonic images with compression and noncompression maneuvers of the deep venous system in addition to color doppler imaging were performed from the common femoral vein through the proximal calf veins. FINDINGS: Currently there is normal compressibility of the deep venous system from the common femoral vein through the proximal calf veins. No current evidence of acute thrombosis is identified. Impression: No evidence of deep venous thrombus. ACT 112: Negative or not required by law. Electronically signed by: Familia Orantes M.D. 06/16/2021 10:11 PM NUCLEAR PULMONARY PERFUSION SCAN CLINICAL HISTORY: Elevated d-dimer. COMPARISON STUDY: Chest x-ray dated 06/16/2021. TECHNIQUE: Nuclear pulmonary perfusion scan of both lungs was performed following the IV administration of 5. mCi of technetium 99m MAA. Images were acquired in the anterior, posterior, and oblique projections. FINDINGS: A chest x-ray performed 06/16/2021 shows cardiomegaly and a cardiac pacemaker. No airspace consolidation or large pleural effusion is identified. No perfusion defects are identified on the perfusion imaging. IMPRESSION: No perfusion defects are identified to suggest pulmonary embolus. ACT 112: Negative or not required by law. Electronically signed by: Kurt Cordero M.D. 06/19/2021 2:16 PM XR chest 1V portable CLINICAL HISTORY: aspiration. Evaluate for pneumonia. COMPARISON STUDY: 06/16/2021 TECHNIQUE: 1 view of the chest FINDINGS: Single frontal view of the chest demonstrates the cardiomediastinal silhouette to be within normal limits. Permanent cardiac pacer is in place. The lungs are clear of alveolar opacities. There is no evidence for pleural effusion. There is no evidence for vascular congestion. There is no acute osseous pathology. IMPRESSION: 1. No acute cardiopulmonary disease. There is no significant interval change. ACT 112: Negative or not required by law. Electronically signed by: Dieter Dunlap M.D. 06/22/2021 7:19 AM Hospital Course (1) Hypernatremia: per Dr. Skinner's notes with addendum: 75 y/o M with PMH of HTN, HLD, h/o pacemaker, abdominal aortic aneurysm, ischemic cardiomyopathy, reported cognitive disorder with possible dementia presented to ER 06/16 from [facility] for confusion and hypoxia. Patient was found to have sodium level of 167, likely secondary to recent diarrheal episode & not eating and drinking for the last few days. Reported patient often needs reminders to eat and drink per documentation. On admission, CT head negative for any acute intracranial findings and CXR with no signs of pneumonia. Lactate and procalcitonin WNL. UA negative for UTI. Started on D5W with resolution of his hypernatremia and encephalopathy. However, had episodes of vomiting overnight with high grade fever, concern for aspiration and started on empiric antibiotics #Acute metabolic encephalopathy --Likely secondary to acute hyponatremia CO2 normal, ammonia normal. Electrolytes normal. -- oriented, answers all questions appropriately --Discussed with correctional officers, patient observed to have cognitive decline even at the correctional facility Will benefit from formal neurological evaluation as outpatient for possible underlying cognitive disorder/dementia # Acute Hypernatremia-resolved -- Hypernatremia due to poor oral intake and diarrheal episode. sodium down to 141 from 167 on admission,resolved withn D5W. #. Suspected aspirationpneumonia-Episodes of vomiting during admission with subsequent high fever and obtundation today raises concern for aspiration pneumonia CXR: clear Started on empiric vanc/cefepime/flagyl given sudden deterioration 06/24 aspiration pneumonia ruled out afebrile x 2 days no leukocytosis initial Blood culture: Corynebacterium in 1 bottle repeat Blood culture: negative no clear source of infection monitor as outpatient # hypokalemia -- likely from poor intake K 40meq daily Basic metabolic profile in 3 days # hypophosphatemia-repleted #. Hypoxia --on arrival- resolved. On room air. VQ scan and bilateral LE doppler negative. # HTN (hypertension) -- BP ok off Irbesartan monitor BP daily # HLD (hyperlipidemia):continue rosuvastatin #. Acute kidney injury-resolved. Cr down to baseline. #. GI bleed-Patient had melanotic stool per RN, FOBT was positive on 06/19. Heparin drip since discontinued. On sc heparin, Hb stable ~ 13. Continue PPI. Repeat CBC in 3 days He will need outpatient GI follow-up as FOBT positive. DVT Prophylaxis- given sc heparin Full Code Follows with [facility] for routine care Disposition- return to [facility]
== END 2021-06-24 18:17 | DRG 682 ==
LOC: ED 16:33 → EDINP 19:40 → SUATTDRO 19:40 → MERGE 19:40 → 2S 06-17 20:26

== ENCOUNTER 2021-07-05 14:38 | Inpatient (IN) ==
--- NOTE | 2021-07-05 14:52 | Emergency Department Note ---
Impression & Plan Acute metabolic encephalopathy, BILL (acute kidney injury), Dehydration with hypernatremia sepsis suspected d/t UTI, BILL, hypernatremia ED Provider Note CHIEF COMPLAINT: altered mental status, hypoxia, hypotension HISTORY OF PRESENT ILLNESS: This 75 yo M Hx ischemic cardiomyopathy, HTN, dementia, recent admission for hypernatremia and hypoxic respiratory failure 2/2 COVID-19 pneumonia presented to the ER today from [facility] for worsening altered mental status, hypoxia, and hypotension. Per estella patient was noted today to be slumped over in his chair, and at that time had a BP in the 80s systolic with O2 saturation of 87% on room air (patient not on O2 at baseline). He was placed on supplemental oxygen and transferred to this ER. In the ER he was noted to have BP 79/54, satting 93% on room air. Patient denies SOB, chest pain, abdominal pain, nausea, vomiting, chills. He endorses some burning with urination. Per estella, he has been incontinent of urine at least since his last admission to the hospital, and his urine has a foul smell They also report that he has had a steady decline in cognition over the last several months. REVIEW OF SYSTEMS: A review of systems was performed with positives and pertinent negatives listed in the history of present illness. 10 systems were reviewed and are otherwise negative. ALLERGIES: see below MEDICATIONS: see below PMH: see below SOCIAL HISTORY: see below DDx: sepsis, pneumonia, PE, UTI, CVA, electrolyte disturbance (such as hyperNa) PHYSICAL EXAM: Vital signs reviewed. General: Awake but confused, yelling out. chronically ill appearing but non- toxic acutely HEENT: No scleral icterus, PERRLA, neck supple. Dry MM Cardiovascular: Regular rate and rhythm, no extra sounds. Pulmonary: Clear to auscultation bilaterally, normal work of breathing. Abdomen: Soft, nondistended, positive bowel sounds. Suprapubic tenderness to palpation (wincing during exam) Musculoskeletal: Atraumatic, no peripheral edema. Neurologic: Patient awake alert but confused, articulating but not oriented Skin: Warm, dry, no rashes or wounds EMERGENCY DEPARTMENT COURSE/MDM: Patient presented meeting criteria for sepsis with unclear source. XR without evidence of pneumonia, no wounds or cellulitis on exam. Suspect urinary source given incontinence, foul smell of urine. Patient received 1L NSS bolus on arrival prior to labwork resulting. Noted to have HyperNa to 155, elevated lactate, elevated WBC count, BILL with creatinine 2.79 (baseline ~1.5). Empiric antibiotics (vanc/cefepime) started after blood cultures collected. CT Head without evidence of acute infarct or other acute pathology that would explain AMS. Patient is incontinent of urine so condom cath placed to collect urine for culture. IBW 71kg; total recommended fluids 2130 given presenting as sepsis. Hospitalist service consulted, [facility] provider Dr. Sandhu to admit patient. Fluids changed to D5W due to hyperNa. MONITORING: An order for cardiac monitoring was placed and the patient is noted to be in a sinus rhythm at 96 beats per minute. RADIOLOGY: XR chest personally reviewed by myself and Dr. Mccollum, no evidence of pneumonia or fluid overload. CT Head: 1. No acute intracranial findings. 2. No change in appearance of the brain. 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 EKG: Normal sinus rhythm rate of 95 bpm, QTc 490. normal QRS, no ST or T wave changes [facility] have personally spent 40 minutes of critical care time in the direct management of this patient. This was a life/limb threatening event. This 40 minutes is in excess of all separately billable procedures. Past Med/Surg History Medical History Abdominal aortic aneurysm Cognitive changes HLD (hyperlipidemia) HTN (hypertension) Ischemic cardiomyopathy Pacemaker Social History Smoking Status: Former smoker Tobacco Type: Cigarettes Years Smoked: 40; Hx Alcohol Use: No Hx Substance Use: No Preferred Language: Bahamian Communication Ability: Effective [employer] Required: No Beliefs That Will Affect Care: None marital status: Current Living Situation: Other Current Living Situation Comment: [facility] Other Information That Helps Us Care for You: No Feels Safe at Home: Yes Safety Concerns: Feels Safe At This Time Assistive Devices: Wheelchair Allergies Allergies Allergy/AdvReac Type Severity Reaction Status Date / Time adhesive tape Allergy Unknown [facility] Verified 07/05/21 16:35 [facility] MED LIST amoxicillin [From Augmentin] Allergy Unknown [facility] Verified 07/05/21 16:35 [facility] MED LIST clavulanic acid Allergy Unknown [facility] Verified 07/05/21 16:35 [From Augmentin] [facility] MED LIST ultrasound coupling medium Allergy Unknown [facility] Verified 07/05/21 16:35 [facility] MED LIST Home Meds Home Medications Medication Instructions Recorded Confirmed rosuvastatin 5 mg tablet 5 mg PO HS 06/16/21 07/05/21 food supplemt, lactose-reduced 1 ea PO TID 07/05/21 07/05/21 (Ensure High Protein) Results & Data (ED) Vital Signs Vital Signs - 24 hr 07/05/21 14:43 07/05/21 14:54 07/05/21 14:57 Temperature 36.7 C Temperature Source Oral Pulse Rate 97 H Pulse Rate from SpO2 Sensor Respiratory Rate 14 Respiratory Effort / Characteristics Non-Labored Non-Labored Respiratory Depth Normal Blood Pressure 79/54 L Blood Pressure Mean 62 Blood Pressure Position Lying Pulse Oximetry 93 96 Oxygen Delivery Method Room Air Room Air Sepsis Recent Fever Within 48 Hours No Sepsis New/Unexplained Change in Mental Status No Sepsis Action Taken by Nursing No Action Required 07/05/21 14:59 07/05/21 15:00 07/05/21 15:15 Temperature Temperature Source Pulse Rate 83 92 H 88 Pulse Rate from SpO2 Sensor 88 92 H 89 Respiratory Rate 18 18 15 Respiratory Effort / Characteristics Respiratory Depth Blood Pressure 93/63 L 93/63 L 108/68 Blood Pressure Mean 73 73 81 Blood Pressure Position Pulse Oximetry 94 94 96 Oxygen Delivery Method Sepsis Recent Fever Within 48 Hours Sepsis New/Unexplained Change in Mental Status Sepsis Action Taken by Nursing 07/05/21 15:28 07/05/21 15:30 07/05/21 16:00 Temperature Temperature Source Pulse Rate 89 87 Pulse Rate from SpO2 Sensor 90 87 Respiratory Rate 17 10 L Respiratory Effort / Characteristics Respiratory Depth Blood Pressure 92/62 L 101/60 100/64 Blood Pressure Mean 72 73 76 Blood Pressure Position Pulse Oximetry 99 95 Oxygen Delivery Method Sepsis Recent Fever Within 48 Hours Sepsis New/Unexplained Change in Mental Status Sepsis Action Taken by Nursing 07/05/21 16:15 07/05/21 16:20 Temperature Temperature Source Pulse Rate 96 H 94 H Pulse Rate from SpO2 Sensor 175 H 100 H Respiratory Rate 15 20 Respiratory Effort / Characteristics Respiratory Depth Blood Pressure 87/62 L 114/83 Blood Pressure Mean 70 93 Blood Pressure Position Pulse Oximetry 76 L 90 Oxygen Delivery Method Sepsis Recent Fever Within 48 Hours Sepsis New/Unexplained Change in Mental Status Sepsis Action Taken by Snf Medications Current Medication List: was personally reviewed by me Laboratory Data Attestation: I reviewed the patient's lab results. Result diagrams: 07/07/21 06:27 07/07/21 06:27 Lab Results 07/05/21 07/05/21 07/05/21 Range/Units 14:50 14:50 14:50 WBC 15.63 H (4.8-10.8) K/uL RBC 4.86 (4.7-6.1) M/uL Hgb 15.5 (14.0-18.0) g/dL Hct 50.0 (42-52) % MCV 102.9 H (80-100) fL MCH 31.9 (25-34) pg MCHC 31.0 L (32-36) g/dL RDW Std Deviation 58.4 H (36.4-46.3) fL RDW Coeff of Delilah 15.6 H (11.5-14.5) % Plt Count 254 (130-400) K/uL MPV 11.4 H (7.4-10.4) fL Immature Gran % (Auto) 0.3 % Neut % (Auto) 83.9 % Lymph % (Auto) 8.3 % [place] % (Auto) 6.7 % Eos % (Auto) 0.4 % Baso % (Auto) 0.4 % Neut # (Auto) 13.12 H (1.4-6.5) K/uL Lymph # (Auto) 1.29 (1.2-3.4) K/uL [place] # (Auto) 1.04 H (0.11-0.59) K/uL Eos # (Auto) 0.07 (0-0.5) K/uL Baso # (Auto) 0.07 (0-0.2) K/uL Immature Gran # (Auto) 0.04 H (0.00-0.02) K/uL PT 13.2 H (9.0-12.0) Seconds INR 1.3 H (0.9-1.1) APTT 22.5 (21.0-31.0) Seconds PTT Ratio 0.8 Sodium 155 H (136-145) mmol/L Potassium 3.9 (3.5-5.1) mmol/L Chloride 121 H (98-107) mmol/L Carbon Dioxide 24 (21-32) mmol/L Anion Gap 10 (3-11) BUN 44 H (6-23) mg/dl Creatinine 2.79 H (0.6-1.4) mg/dl Est Cr Clr Drug Dosing 24.8 ml/min Est GFR ( Amer) 24.4 ml/min Est GFR (Non-Af Amer) 21.1 ml/min BUN/Creatinine Ratio 15.8 (10-20) Glucose 100 H (70-99(Fasting)) mg/dl Osmolality (280-300) mOsm/kg Lactate (0.4-2.0) mmol/L Calcium 8.0 L (8.5-10.1) mg/dl Magnesium 2.5 H (1.7-2.4) mg/dl Total Bilirubin 0.8 (0.2-1.0) mg/dl AST 28 (13-39) U/L ALT 24 (7-52) U/L Alkaline Phosphatase 69 (34-104) U/L Total Protein 5.7 L (6.0-8.3) gm/dl Albumin 3.3 L (3.4-5.0) gm/dl Globulin 2.4 L (2.5-4.0) gm/dl Albumin/Globulin Ratio 1.4 (0.9-2) 07/05/21 07/05/21 Range/Units 15:30 15:30 WBC (4.8-10.8) K/uL RBC (4.7-6.1) M/uL Hgb (14.0-18.0) g/dL Hct (42-52) % MCV (80-100) fL MCH (25-34) pg MCHC (32-36) g/dL RDW Std Deviation (36.4-46.3) fL RDW Coeff of Delilah (11.5-14.5) % Plt Count (130-400) K/uL MPV (7.4-10.4) fL Immature Gran % (Auto) % Neut % (Auto) % Lymph % (Auto) % [place] % (Auto) % Eos % (Auto) % Baso % (Auto) % Neut # (Auto) (1.4-6.5) K/uL Lymph # (Auto) (1.2-3.4) K/uL [place] # (Auto) (0.11-0.59) K/uL Eos # (Auto) (0-0.5) K/uL Baso # (Auto) (0-0.2) K/uL Immature Gran # (Auto) (0.00-0.02) K/uL PT (9.0-12.0) Seconds INR (0.9-1.1) APTT (21.0-31.0) Seconds PTT Ratio Sodium (136-145) mmol/L Potassium (3.5-5.1) mmol/L Chloride (98-107) mmol/L Carbon Dioxide (21-32) mmol/L Anion Gap (3-11) BUN (6-23) mg/dl Creatinine (0.6-1.4) mg/dl Est Cr Clr Drug Dosing ml/min Est GFR ( Amer) ml/min Est GFR (Non-Af Amer) ml/min BUN/Creatinine Ratio (10-20) Glucose (70-99(Fasting)) mg/dl Osmolality 341 H (280-300) mOsm/kg Lactate 2.8 H* (0.4-2.0) mmol/L Calcium (8.5-10.1) mg/dl Magnesium (1.7-2.4) mg/dl Total Bilirubin (0.2-1.0) mg/dl AST (13-39) U/L ALT (7-52) U/L Alkaline Phosphatase (34-104) U/L Total Protein (6.0-8.3) gm/dl Albumin (3.4-5.0) gm/dl Globulin (2.5-4.0) gm/dl Albumin/Globulin Ratio (0.9-2) Administered Medications Dextrose (D5w) 1,000 mls @ 60 mls/hr IV .[id number] HANG Stop: 08/04/21 16:44 Last Admin: 07/07/21 22:01 Dose: 60 mls/hr Documented by: [id number] Infusion: 07/07/21 22:00 Dose: 60 mls/hr Documented by: [id number] Admin: 07/07/21 05:15 Dose: 60 mls/hr Documented by: [id number] Infusion: 07/07/21 05:14 Dose: 60 mls/hr Documented by: [id number] Admin: 07/06/21 14:46 Dose: 100 mls/hr Documented by: [id number] Infusion: 07/06/21 13:34 Dose: 100 mls/hr Documented by: [id number] Admin: 07/06/21 03:34 Dose: 100 mls/hr Documented by: [id number] Infusion: 07/06/21 03:19 Dose: 100 mls/hr Documented by: [id number] Admin: 07/05/21 17:19 Dose: 100 mls/hr Documented by: [id number] Discontinued Medications Vancomycin HCl 1,750 mg/ (Sodium Chloride) 535 mls @ 200 mls/hr IV NOW ONE Stop: 07/05/21 18:23 Last Infusion: 07/05/21 19:45 Dose: 0 mls/hr Documented by: [id number] Admin: 07/05/21 16:48 Dose: 200 mls/hr Documented by: [id number] Cefepime HCl 2,000 mg/ Syringe 20 mls @ 5 mls/min IV NOW STA; Protocol Stop: 07/05/21 15:46 Last Admin: 07/05/21 16:47 Dose: 5 mls/min Documented by: [id number] Sodium Chloride (Nss 1000ml) 1,000 mls @ 150 mls/hr IV .Q6H40M [facility] Stop: 08/04/21 16:29 Last Admin: 07/05/21 19:10 Dose: Not Given Documented by: [id number] Sodium Chloride (Nss 1000ml) 1,000 mls @ 999 mls/hr IV .Q1H1M ONE Stop: 07/05/21 17:40 Last Infusion: 07/05/21 17:09 Dose: 0 mls/hr Documented by: [id number] Admin: 07/05/21 16:48 Dose: 999 mls/hr Documented by: [id number] Doxycycline Hyclate 100 mg/ (Dextrose) 110 mls @ 50 mls/hr IV Q12H [facility] Stop: 07/07/21 18:59 Last Infusion: 07/07/21 12:05 Dose: 0 mls/hr Documented by: [id number] Admin: 07/07/21 08:57 Dose: 50 mls/hr Documented by: [id number] Infusion: 07/06/21 22:50 Dose: 0 mls/hr Documented by: [id number] Admin: 07/06/21 18:15 Dose: 50 mls/hr Documented by: [id number] Infusion: 07/06/21 11:18 Dose: 0 mls/hr Documented by: [id number] Admin: 07/06/21 08:48 Dose: 50 mls/hr Documented by: [id number] Infusion: 07/05/21 22:30 Dose: 0 mls/hr Documented by: [id number] Admin: 07/05/21 20:14 Dose: 50 mls/hr Documented by: [id number] Cefepime HCl 1,000 mg/ Syringe 11.3 mls @ 5.5 mls/min IV Q12H HANG; Protocol Stop: 07/08/21 05:59 Last Admin: 07/06/21 08:48 Dose: 5.5 mls/min Documented by: [id number] Cefepime HCl 2,000 mg/ Syringe 20 mls @ 5 mls/min IV Q12H HANG; Protocol Stop: 07/08/21 05:59 Last Admin: 07/07/21 17:23 Dose: 5 mls/min Documented by: [id number] Admin: 07/07/21 05:15 Dose: 5 mls/min Documented by: [id number] Admin: 07/06/21 18:16 Dose: 5 mls/min Documented by: [id number] Pneumococcal Polyvalent Vaccine (Pneumococcal Polysaccharides 25 Mcg/0.5 Ml Vial/Syr) 25 mcg IM .ONCE ONE Stop: 07/05/21 21:01 Last Admin: 07/07/21 16:57 Dose: Not Given Documented by: [id number] Imaging Data Radiologist's Impression: Chest X-Ray 07/05/21 14:57 XR chest 1V portable CLINICAL HISTORY: Sepsis. COMPARISON STUDY: Chest radiograph June 22, 2021. FINDINGS: A dual-lead left subclavian pacemaker is in place. Lung volumes are normal. Lungs are clear. There is no pneumothorax or pleural effusion. Cardiac size is normal. Mediastinal contours are normal. There is no evidence for pulmonary edema. Calcified granulomas within the lungs are incidentally noted. IMPRESSION: No acute cardiopulmonary findings. ACT 112: Negative or not required by law. Electronically signed by: Adelfo Fay M.D. 07/05/2021 4:[address] 07/05/21 14:57 CT OF THE HEAD WITHOUT CONTRAST CLINICAL HISTORY: Altered mental status. COMPARISON STUDY: Head CT June 16, 2021. CT DOSE: 1989.72 mGycm TECHNIQUE: Helical axial images of the head were obtained without IV contrast. Automated exposure control was utilized for the study. A dose lowering technique was utilized adhering to the principles of ALARA. FINDINGS: No acute intracranial hemorrhage, midline shift or mass effect is pre sent. Ventricular system is unremarkable. Basal cisterns are patent. There are no extra axial collections. Encephalomalacia within the right cerebellar hemisphere is unchanged since prior head CT. This is chronic. There is also a small focus of encephalomalacia within the left occipital lobe which is also unchanged. White matter hypodensities are similar to prior exam and favor small vessel disease. There are no findings to suggest acute dural sinus thrombosis or acute territorial infarct. The appearance of the brain is unchanged. There are no significant calvarial abnormalities. IMPRESSION: 1. No acute intracranial findings. 2. No change in appearance of the brain. 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 ACT 112: Negative or not required by law. Electronically signed by: Adelfo Fay M.D. 07/05/2021 3:48 PM Blood Pressure Blood Pressure Findings: Low blood pressure Blood Pressure Disposition: further management by hospitalist Discharge Plan Visit Data Chief Complaint: Altered Mental Status Stated Complaint: AMS, HYPOXIA ED Provider: Mlii Mccollum ED Midlevel Provider: Cher Gómez Discharge Problem: Acute metabolic encephalopathy, BILL (acute kidney injury), Dehydration with hypernatremia Patient Disposition: Admitted As Inpatient Discharge Instructions Interventions: ED Discharge Assessment Last Done: 07/05/21 18:15 Resident Activity Tracking Resident Involvement: Resident Care Provided Care Provided: Adult ED
[2021-07-05 15:36] LABS: Basophils # (auto) 0.07 K/uL (0-0.2); Basophils % (auto) 0.4 %; Eosinophils # (auto) 0.07 K/uL (0-0.5); Eosinophils % (auto) 0.4 %; Hemoglobin 15.5 g/dL (14.0-18.0); Immature Granulocytes # (auto) 0.04 K/uL (0.00-0.02); Immature Granulocytes % (auto) 0.3 %; Lymphocytes # (auto) 1.29 K/uL (1.2-3.4); Lymphocytes % (auto) 8.3 %; Mean Corpuscular Hemoglobin 31.9 pg (25-34); Mean Corpuscular Volume 102.9 fL (80-100); Mean Platelet Volume 11.4 fL (7.4-10.4); Monocytes # (auto) 1.04 K/uL (0.11-0.59); Monocytes % (auto) 6.7 %; Neutrophils # (auto) 13.12 K/uL (1.4-6.5); Neutrophils % (auto) 83.9 %; Platelet Count 254 K/uL (130-400); RDW Coefficient of Variation 15.6 % (11.5-14.5); RDW Standard Deviation 58.4 fL (36.4-46.3); Red Blood Count 4.86 M/uL (4.7-6.1); White Blood Count 15.63 K/uL (4.8-10.8)
[2021-07-05] MEDS ORDERED: CEFEPIME 2,000 MG in SYRINGE 0 ML IV STA (15:43)
[2021-07-05] MEDS ORDERED: VANCOMYCIN HCL 1,750 MG in SODIUM CHLORIDE 0.9% 500 ML IV ONE (15:43)
[2021-07-05] MEDS ORDERED: VANCOMYCIN CONSULT ACTIVE PRN (15:43)
--- NOTE | 2021-07-05 15:49 | CT Scan Report ---
CT OF THE HEAD WITHOUT CONTRAST CLINICAL HISTORY: Altered mental status. COMPARISON STUDY: Head CT June 16, 2021. CT DOSE: 1989.72 mGycm TECHNIQUE: Helical axial images of the head were obtained without IV contrast. Automated exposure con trol was utilized for the study. A dose lowering technique was utilized adhering to the principles o f ALARA. FINDINGS: No acute intracranial hemorrhage, midline shift or mass effect is present. Ventricular syst em is unremarkable. Basal cisterns are patent. There are no extra axial collections. Encephalomalacia within the right cerebellar hemisphere is unchanged since prior head CT. This is chronic. There is a lso a small focus of encephalomalacia within the left occipital lobe which is also unchanged. White m atter hypodensities are similar to prior exam and favor small vessel disease. There are no findings t o suggest acute dural sinus thrombosis or acute territorial infarct. The appearance of the brain is u nchanged. There are no significant calvarial abnormalities. IMPRESSION: 1. No acute intracranial findings. 2. No change in appearance of the brain. 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 ACT 112: Negative or not required by law. Electronically signed by: Adelfo Fay M.D. 07/05/2021 3:48 PM
[2021-07-05 15:53] LABS: INR 1.3 (0.9-1.1); Partial Thromboplastin Ratio 0.8; Partial Thromboplastin Time 22.5 Seconds (21.0-31.0); Prothrombin Time 13.2 Seconds (9.0-12.0)
[2021-07-05 15:54] LABS: Albumin Globulin Ratio 1.4 (0.9-2); Albumin Level 3.3 gm/dl (3.4-5.0); BUN Creatinine Ratio 15.8 (10-20); Bilirubin,Total 0.8 mg/dl (0.2-1.0); Creatinine Clr Calc Pharmacy 24.8 ml/min; Est GFR (African American) 24.4 ml/min; Est GFR (Non-African American) 21.1 ml/min; Globulin 2.4 gm/dl (2.5-4.0); Magnesium 2.5 mg/dl (1.7-2.4); Potassium 3.9 mmol/L (3.5-5.1); Total Protein 5.7 gm/dl (6.0-8.3)
--- NOTE | 2021-07-05 16:11 | XRay Report ---
XR chest 1V portable CLINICAL HISTORY: Sepsis. COMPARISON STUDY: Chest radiograph June 22, 2021. FINDINGS: A dual-lead left subclavian pacemaker is in place. Lung volumes are normal. Lungs are clear . There is no pneumothorax or pleural effusion. Cardiac size is normal. Mediastinal contours are norm al. There is no evidence for pulmonary edema. Calcified granulomas within the lungs are incidentally noted. IMPRESSION: No acute cardiopulmonary findings. ACT 112: Negative or not required by law. Electronically signed by: Adelfo Fay M.D. 07/05/2021 4:10 PM
--- NOTE | 2021-07-05 16:21 | History & Physical Report ---
Date of Service July 05, 2021 Assessment & Plan (1) Sepsis: Plan: -Admit to PCU -Initially was hypotensive with BP 79/54 upon arrival to the ER, lactate of 2.8, creatinine bumped to 2.79 and in BILL, WBC 15.63, left shift -Blood cultures obtained, follow -UA not yet obtained, awaiting sample, follow culture as patient has been complaining of urinary incontinence, increased frequency per guards at bedside -Started on Vanco and cefepime in the ER - continue empiric cefepime and doxy. stop vanc with bill. -WBC 15.63, left shift -CXR appears negative for infection and/infiltrate -CT of the head is negative for acute changes but does show encephalomalacia with chronic right cerebral hemisphere and left occipital changes (2) BILL (acute kidney injury): (3) Hypernatremia: Plan: - Noted to be 155 on admission, check urine osm and serum osm, previously on last admission Na+was as high as 165. -recheck BMP Q6H x 4 to monitor - will start on D5W 100ml/hr, hold NSS. Pt received 1 L NSS prior to getting to the ER. - Consult nephrology - Cr. 2.79, cr baseline around 1.0 at baseline - Avoid nephrotoxins and renally reduce medications - Pt historically with poor thirst/hunger drive (4) Acute metabolic encephalopathy: Plan: - Acute, as above - Likely combination of sepsis and hypernatremia - would benefit from formal neurological evaluation as outpatient for possible underlying cognitive disorder/dementia - Check ammonia, VBG to r/o hypercarbia - CT head ith encephalomalacia and likely underlying dementia, pt oriented to self, thinks he is currently in custodial. (5) Ischemic cardiomyopathy: Plan: - Echo was recently completed showing preserved EF - EKG reviewed - No current chest pain or complaints. (6) HTN (hypertension): Plan: - Holding home (7) Pacemaker: Plan: - Consider pacemaker interrogation, stable, no chest pain DVT ppx: - Teds, scds, heparin subq CODE: Full Dispo: From [facility], likely dc within 1-2 days (8) HLD (hyperlipidemia): Plan: - Cont statin therapy History of Present Illness Chief Complaint: Altered mental status Primary Care Provider: CHRISTIANA Scruggs This is a 75 yo M inmate from [facility] with PMhx of HTN, HLD, h/o pacemaker, abdominal aortic aneurysm, ischemic cardiomyopathy, reported cognitive disorder with possible dementia presented to ER from [facility] for confusionand worsening mental status. Guards reported that the patient was slumped over in a chair, not acting himself earlier today. He was noted to be hypoxic with O2 sats at 87% on room air. O2 was placed and his saturations improved and was transferred to the hospital He was recently admitted from 06/16-06/24 for acute metabolic encephalopathy, COVID-19 infection and acute respiratory failure with hypoxia, as well as hypernatremia, there was suspected GI bleed at that time with FOBT positive on 06/19 and was referred for outpatient GI follow up. Today the patient has no acute complaints, he reports that he lives in a custodial and is still there. He is oriented to self, birthday, but can otherwise not give me details or tell me about anything currently going on with current e vents. He denies any acute pain, complaints, chest pain, fever, chills. He does admit to issues with urination, including increased frequency and burning, but denies blood. Pt denies any current shortness of breath and is currently on room air at 97%. Allergies Allergy/AdvReac Type Severity Reaction Status Date / Time adhesive tape Allergy Unknown [facility] Verified 07/05/21 16:35 [facility] MED LIST amoxicillin [From Augmentin] Allergy Unknown [facility] Verified 07/05/21 16:35 [facility] MED LIST clavulanic acid Allergy Unknown [facility] Verified 07/05/21 16:35 [From Augmentin] [facility] MED LIST ultrasound coupling medium Allergy Unknown [facility] Verified 07/05/21 16:35 [facility] MED LIST Home Medications Medication Instructions Recorded Confirmed Type rosuvastatin 5 mg tablet 5 mg PO HS 06/16/21 07/05/21 History food supplemt, lactose-reduced 1 ea PO TID 07/05/21 07/05/21 History (Ensure High Protein) Past Med/Surg History Medical History Abdominal aortic aneurysm Cognitive changes HLD (hyperlipidemia) HTN (hypertension) Ischemic cardiomyopathy Pacemaker Social History (Updated 07/05/21 @ 17:15 by Cher Rico, DO) Smoking Status: Former smoker Tobacco Type: Cigarettes Years Smoked: 40; Hx Alcohol Use: No Hx Substance Use: No Preferred Language: Uzbek Communication Ability: Effective Spray Gun Operator Required: No Beliefs That Will Affect Care: None marital status: Current Living Situation: Other Current Living Situation Comment: [facility]STIANA SCRUGGS Other Information That Helps Us Care for You: No Feels Safe at Home: Yes Safety Concerns: Feels Safe At This Time Assistive Devices: Wheelchair Review of Systems Review of Systems: Constitutional: No fever, sweats or chills Eyes: No diplopia, no worsening or blurred vision ENT: normal hearing, no trouble swallowing Respiratory: No cough, sputum, dyspnea at rest or on exertion Cardiovascular: No chest pain, tightness or palpitations Abdomen: No pain, nausea, vomiting, diarrhea or constipation : As per HPI Musculoskeletal: No joint pain, calf pain, swelling Neurologic: No weakness, numbness/tingling, or balance problems Psychiatric: No anxiety or depression Skin: No rash or itch Physical Exam Physical Exam: General: awake, alert, no apparent distress, + pleasantly confused Head: Normocephalic, atraumatic ENT: PERRL, EOMI, no pharyngeal exudate, mucous membranes are dry Chest: Clear to auscultation, on room air with sats at 97% at bedside. no adventitious breath sounds Cardiac: Regular rate and rhythm, no murmur, no JVD, normal peripheral pulses, good capillary refill Abdominal: NABS x 4 quadrants, soft, nondistended, nontender to palpation, no rebound or guarding Extremities: Normal inspection, no peripheral edema or erythema, calfs nontender to palpation Psych: Normal mood and affect Neuro: AAO x 3, strength intact bilaterally and rated 5/5, no motor deficits, speech is clear, no peripheral sensory deficits Results & Data Results & Data ([facility]) Vital Signs (Past 12 Hours) Vital Signs Temp Pulse Resp BP Pulse Ox 07/05/21 15:15 88 15 108/68 96 07/05/21 15:00 92 H 18 93/63 L 94 07/05/21 14:59 83 18 93/63 L 94 07/05/21 14:57 96 07/05/21 14:54 79/54 L 07/05/21 14:43 36.7 C 97 H 14 93 Laboratory Results 07/05/21 15:52 Aerobic Blood Culture - Pending Blood Anaerobic Blood Culture - Pending 07/05/21 15:30 Aerobic Blood Culture - Pending Blood Anaerobic Blood Culture - Pending 07/05/21 07/05/21 07/05/21 16:30 15:30 15:30 WBC RBC Hgb Hct MCV MCH MCHC RDW Std Deviation RDW Coeff of Delilah Plt Count MPV Immature Gran % (Auto) Neut % (Auto) Lymph % (Auto) Gray % (Auto) Eos % (Auto) Baso % (Auto) Neut # (Auto) Lymph # (Auto) Gray # (Auto) Eos # (Auto) Baso # (Auto) Immature Gran # (Auto) PT INR APTT PTT Ratio Sodium Potassium Chloride Carbon Dioxide Anion Gap BUN Creatinine Est Cr Clr Drug Dosing Est GFR ( Amer) Est GFR (Non-Af Amer) BUN/Creatinine Ratio Glucose Osmolality 341 H Lactate 2.8 H* Calcium Magnesium Total Bilirubin AST ALT Alkaline Phosphatase Total Protein Albumin Globulin Albumin/Globulin Ratio SARS-CoV-2, RNA, NAAT NEGATIVE 07/05/21 07/05/21 07/05/21 14:50 14:50 14:50 WBC 15.63 H RBC 4.86 Hgb 15.5 Hct 50.0 MCV 102.9 H MCH 31.9 MCHC 31.0 L RDW Std Deviation 58.4 H RDW Coeff of Delilah 15.6 H Plt Count 254 MPV 11.4 H Immature Gran % (Auto) 0.3 Neut % (Auto) 83.9 Lymph % (Auto) 8.3 Gray % (Auto) 6.7 Eos % (Auto) 0.4 Baso % (Auto) 0.4 Neut # (Auto) 13.12 H Lymph # (Auto) 1.29 Gray # (Auto) 1.04 H Eos # (Auto) 0.07 Baso # (Auto) 0.07 Immature Gran # (Auto) 0.04 H PT 13.2 H INR 1.3 H APTT 22.5 PTT Ratio 0.8 Sodium 155 H Potassium 3.9 Chloride 121 H Carbon Dioxide 24 Anion Gap 10 BUN 44 H Creatinine 2.79 H Est Cr Clr Drug Dosing 24.8 Est GFR ( Amer) 24.4 Est GFR (Non-Af Amer) 21.1 BUN/Creatinine Ratio 15.8 Glucose 100 H Osmolality Lactate Calcium 8.0 L Magnesium 2.5 H Total Bilirubin 0.8 AST 28 ALT 24 Alkaline Phosphatase 69 Total Protein 5.7 L Albumin 3.3 L Globulin 2.4 L Albumin/Globulin Ratio 1.4 SARS-CoV-2, RNA, NAAT Diagnostic Findings Chest X-Ray 07/05/21 14:57 XR chest 1V portable CLINICAL HISTORY: Sepsis. COMPARISON STUDY: Chest radiograph June 22, 2021. FINDINGS: A dual-lead left subclavian pacemaker is in place. Lung volumes are normal. Lungs are clear. There is no pneumothorax or pleural effusion. Cardiac size is normal. Mediastinal contours are normal. There is no evidence for pulmonary edema. Calcified granulomas within the lungs are incidentally noted. IMPRESSION: No acute cardiopulmonary findings. ACT 112: Negative or not required by law. Electronically signed by: Adelfo Fay M.D. 07/05/2021 4:[address] 07/05/21 14:57 CT OF THE HEAD WITHOUT CONTRAST CLINICAL HISTORY: Altered mental status. COMPARISON STUDY: Head CT June 16, 2021. CT DOSE: 1989.72 mGycm TECHNIQUE: Helical axial images of the head were obtained without IV contrast. Automated exposure control was utilized for the study. A dose lowering technique was utilized adhering to the principles of ALARA. FINDINGS: No acute intracranial hemorrhage, midline shift or mass effect is present. Ventricular system is unremarkable. Basal cisterns are patent. There are no extra axial collections. Encephalomalacia within the right cerebellar hemisphere is unchanged since prior head CT. This is chronic. There is also a small focus of encephalomalacia within the left occipital lobe which is also unchanged. White matter hypodensities are similar to prior exam and favor small vessel disease. There are no findings to suggest acute dural sinus thrombosis or acute territorial infarct. The appearance of the brain is unchanged. There are no significant calvarial abnormalities. IMPRESSION: 1. No acute intracranial findings. 2. No change in appearance of the brain. 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 ACT 112: Negative or not required by law. Electronically signed by: Adelfo Fay M.D. 07/05/2021 3:48 PM ECG Additional Comments: Reviewed by me, no acute ST wave changes or signs of ischemia, RBBB is chronic, prolonged QTc at 490. Code Status & VTE Plan Code Status Full code Supervising Physician Co-Signing Physician Notes Patient is a 75-year-old male with history of hypertension, hyperlipidemia, AAA, and other medical problems presents from [facility] with history of worsening confusion and change in mental status. Patient was admitted recently with similar condition. Patient is currently oriented to person only and unable to provide much history. Most of the history is obtained from old records, ER physician and guards at bedside. As per the guards, patient slumped over the chair and was not acting himself and his oxygen saturations were found to be in 80s on room air and so was transferred to hospital for further evaluation. CT head showed no acute process. Chest x-ray showed no acute process as well. Blood work suggestive of leukocytosis 15.6k, hypernatremia sodium 155, hyperchloremia 118, Cr 2.81, lactic acid 2.8, ammonia 25.0. VBG showed no Hypercarbia. On exam patient is moderately built and nourished, no apparent distress, normocephalic atraumatic, pleasantly confused, EOMI, normal breath sounds, clear to auscultation, S1-S2, no murmur, no pedal edema, abdomen soft, nontender, normal bowel sounds, alert, awake, oriented to person only, grossly no focal deficits. Patient is admitted for management of acute metabolic encephalopathy likely secondary to hyponatremia. Also will be managed for BILL, suspected sepsis. Agree with starting on broad-spectrum antibiotics until infection ruled out. Blood cultures obtained. Urine analysis pending. Continue D5 water and monitor sodium closely. Nephrology consulted. Check renal ultrasound. Avoid nephrotoxic agents as able. Consider MRI brain if no improvement with current management. I personally reviewed the record. Patient is interviewed and examined at bedside. Patient's care is coordinated with Avril Paris PA-C. Please refer to the documentation above for details of patient's presentation and for discussion of other issues.
[2021-07-05] MEDS ORDERED: SODIUM CHLORIDE 0.9% 1000ML 1,000 ML IV SCH (16:30)
[2021-07-05] MEDS ORDERED: SODIUM CHLORIDE 0.9% 1000ML 1,000 ML IV ONE (16:40)
[2021-07-05] MEDS: DEXTROSE 5% 1,000 ML IV SCH (17:19)
--- NOTE | 2021-07-05 18:28 | Ultrasound Report ---
ULTRASOUND KIDNEYS AND BLADDER CLINICAL HISTORY: Acute renal insufficiency. Hyponatremia. COMPARISON STUDY: No priors TECHNIQUE: Real-time, grayscale, and color flow sonography of the kidneys and bladder is performed. I mages are reviewed in the transverse and longitudinal planes. FINDINGS: Kidneys: The kidneys demonstrate cortical atrophy. Echotexture is normal. The right kidney measures 1 0.9 x 5.4 x 5.9 cm and the left kidney measures 10.2 x 4.6 x 5.7 cm. There is no hydronephrosis. No shadowing renal calculi are identified. There is no sonographic evidence of contour deforming renal m ass lesion. No perinephric fluid is identified. Bladder: The partially distended bladder is normal in appearance. Ureteral jets were not seen. Upper abdomen: Survey images of the liver show evidence of steatosis. IMPRESSION: 1. The kidneys demonstrate cortical atrophy and are without hydronephrosis. 2. The bladder is normal as visualized. ACT 112: Negative or not required by law. Electronically signed by: Kurt Cordero M.D. 07/05/2021 6:27 PM
[2021-07-05] MEDS ORDERED: ACETAMINOPHEN 325 MG TAB PO PRN (18:55)
[2021-07-05] MEDS ORDERED: ONDANSETRON INJ 2 MG/ML 2 ML VIAL IV PRN (18:55)
[2021-07-05 19:59] LABS: Base Excess VBG 1.3 mEq/L; HCO3 VBG 27 mmol/L; Oxygen Saturation VBG < 60.0 %; PCO2 VBG 47 mmHg (38-50); PO2 VBG 25 mmHg; pH VBG 7.38 (7.36-7.41)
[2021-07-05 20:06] LABS: BUN Creatinine Ratio 17.1 (10-20); Calcium 9.5 mg/dl (8.5-10.1); Creatinine Clr Calc Pharmacy 24.6 ml/min; Est GFR (African American) 24.2 ml/min; Est GFR (Non-African American) 20.9 ml/min; Potassium 4.2 mmol/L (3.5-5.1)
[2021-07-05] MEDS: DOXYCYCLINE HYCLATE 100 MG in DEXTROSE 5% 100 ML IV SCH (20:14)
[2021-07-05] MEDS ORDERED: PNEUMOCOCCAL POLYSACCHARIDES 25 MCG/0.5 ML VIAL/SYR IM ONE (21:00)
[2021-07-06 00:45] LABS: BUN Creatinine Ratio 17.8 (10-20); Calcium 9.3 mg/dl (8.5-10.1); Creatinine Clr Calc Pharmacy 26.8 ml/min; Est GFR (African American) 26.8 ml/min; Est GFR (Non-African American) 23.1 ml/min; Potassium 3.8 mmol/L (3.5-5.1)
[2021-07-06] MEDS: DEXTROSE 5% 1,000 ML IV SCH ×2 (03:34→14:46)
[2021-07-06] MEDS ORDERED: CEFEPIME 1,000 MG in SYRINGE 0 ML IV SCH (06:00)
--- NOTE | 2021-07-06 06:56 | Nephrology Consultation ---
Date of Consultation July 06, 2021 Assessment & Plan (1) BILL (acute kidney injury): improving Stage II acute kidney injury with 1 unmeasured void recorded so far on chart. Baseline creatinine 0.9-1.3. Was 1.3 as of May; was 0.9 at hospital discharge last month during/after close monitoring and intervention to improve labs. Prerenal acute kidney injury with improvement today to 2.2. . -no indication for jaquez at this time -recommend straight cath to collect urine specimen > sooner the better since he's had abtx nearly 24 hr now -continue D5 as below -daily bmp (2) Electrolyte and fluid disorder: improving but recurrent and chronic hypernatremia and hyperchloremia both from dehydration; -agree w/ neuro +/- speech eval, consider feeding patient/calorie count >w/ 6 point correction in less than 24 hrs, lowered D5W rate to 60 mL hourly -ok to check bmp daily at this point History of Present Illness Reason for Consultation: hypernatremia Requesting Physician: Dr Sandhu Attending Physician: Wellington Sandhu MD History of Present Illness 75 y/o M whom I'm asked to see for hypernatremia was admitted yesterday for acute metabolic encephalopathy with concern for sepsis. He presented w/ serum sodium 155 yesterday approx 1500; labs this am w/ sodium 149. Admitted w/ metabolic encephalopathy from June 16- in the setting of Covid pneumonia and with concern for GI bleed Past medical history includes hypertension, hyperlipidemia, ischemic cardiomyopathy, status post pacemaker, cognitive disorder with possible dementia, abdominal aortic aneurysm. Is an inmate at [facility]. Per report from prior hospitalization, his creatinine was 1.0 as recently as May 2021. No source identified for sepsis > he presented w/ lactate and elevated WBC with left shift; had one dose of vancomycin; on cefepime and doxy currently. Chest x-ray unremarkable and blood cultures pending. Patient denies fever, chills, poor appetite, though does endorse increased thirst. Denies shortness of breath or orthopnea. Denies chest pain or palpitations. Denies nausea, vomiting, abdominal pain, constipation or diarrhea. Does not endorse dysuria frequency or other voiding concerns to me. He is not sure why he is in the hospital Allergies Allergy/AdvReac Type Severity Reaction Status Date / Time adhesive tape Allergy Unknown [facility] Verified 07/05/21 16:35 [facility] MED LIST amoxicillin [From Augmentin] Allergy Unknown [facility] Verified 07/05/21 16:35 [facility] MED LIST clavulanic acid Allergy Unknown [facility] Verified 07/05/21 16:35 [From Augmentin] [facility] MED LIST ultrasound coupling medium Allergy Unknown [facility] Verified 07/05/21 16:35 [facility] MED LIST Home Medications Medication Instructions Recorded Confirmed Type rosuvastatin 5 mg tablet 5 mg PO HS 06/16/21 07/05/21 History food supplemt, lactose-reduced 1 ea PO TID 07/05/21 07/05/21 History (Ensure High Protein) Patient History Medical History Abdominal aortic aneurysm Cognitive changes HLD (hyperlipidemia) HTN (hypertension) Ischemic cardiomyopathy Pacemaker Social History Smoking Status: Former smoker Tobacco Type: Cigarettes Years Smoked: 40; Hx Alcohol Use: No Hx Substance Use: No Preferred Language: Georgian Communication Ability: Effective Radio Electronics Technician Required: No Beliefs That Will Affect Care: None marital status: Current Living Situation: Other Current Living Situation Comment: [facility]STIA[facility] SCRUGGS Other Information That Helps Us Care for You: No Feels Safe at Home: Yes Safety Concerns: Feels Safe At This Time Assistive Devices: Wheelchair Review of Systems Review of Systems: All systems reviewed & are unremarkable except as noted in HPI & below Physical Exam Constitutional: well developed and well nourished; no acute distress Eyes: EOM intact bilaterally ENMT: Ears: no external ear abnormality Nose: no external nose abnormality Mouth: + dry oral mucous membranes Neck: no nuchal rigidity Respiratory: normal respiratory effort Auscultation: + diminished lung so unds Cardiovascular: RRR, no murmur, no edema Gastrointestinal (Abdomen): Inspection/Auscultation: normal bowel sounds Percussion/Palpation: abdomen soft; abdomen nontender Musculoskeletal: Extremities: strength 5/5 throughout Skin: no rashes, warm and dry Neurologic: ruffin, fluent speech, no tremor Psychiatric: Orientation: oriented to person and cooperative Insight: + l imited insight Judgement: + limited judgement Results & Data ([place]) Vital Signs (Past 12 Hours) Vital Signs Temp Pulse Pulse Resp BP Pulse Ox 07/06/21 06:07 79 07/06/21 04:13 36.6 C 79 20 97/63 L 96 07/06/21 00:21 37.1 C 80 18 103/61 95 07/05/21 23:59 79 07/05/21 19:34 36.8 C 87 14 108/64 94 Laboratory Results 07/05/21 14:50 07/05/21 23:52 reviewed: -lactate trends -blood cultures Diagnostic Findings Renal ultrasound 1. The kidneys demonstrate cortical atrophy and are without hydronephrosis. 2. The bladder is normal as visualized. Head CT 1. No acute intracranial findings. 2. No change in appearance of the brain. 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 no acute cardiopulmonary ff on CXR
[2021-07-06 07:05] LABS: Hematocrit (blood only) 45.3 % (42-52); Hemoglobin 13.7 g/dL (14.0-18.0); Mean Corpuscular Hgb Conc 30.2 g/dL (32-36); Mean Corpuscular Volume 102.5 fL (80-100); Mean Platelet Volume 11.1 fL (7.4-10.4); Platelet Count 171 K/uL (130-400); RDW Coefficient of Variation 15.7 % (11.5-14.5); RDW Standard Deviation 58.5 fL (36.4-46.3); Red Blood Count 4.42 M/uL (4.7-6.1)
[2021-07-06 07:17] LABS: INR 1.3 (0.9-1.1); Prothrombin Time 13.2 Seconds (9.0-12.0)
[2021-07-06 07:27] LABS: Albumin Globulin Ratio 1.4 (0.9-2); Albumin Level 3.2 gm/dl (3.4-5.0); BUN Creatinine Ratio 19.4 (10-20); Calcium 8.3 mg/dl (8.5-10.1); Creatinine Clr Calc Pharmacy 31.2 ml/min; Est GFR (African American) 32.2 ml/min; Est GFR (Non-African American) 27.8 ml/min; Globulin 2.3 gm/dl (2.5-4.0); Potassium 3.7 mmol/L (3.5-5.1); Total Protein 5.5 gm/dl (6.0-8.3)
[2021-07-06 07:35] LABS: Estimated Average Glucose 114 mg/dl; Hemoglobin A1C 5.6 % (4.5-5.6)
[2021-07-06] MEDS: DOXYCYCLINE HYCLATE 100 MG in DEXTROSE 5% 100 ML IV SCH ×2 (08:48→18:15)
--- NOTE | 2021-07-06 16:12 | Hospitalist Progress Note ---
Date of Service July 06, 2021 Assessment & Plan (1) Sepsis: Plan: per admitting service notes with addendum: -Initially was hypotensive with BP 79/54 upon arrival to the ER, lactate of 2.8, creatinine bumped to 2.79 and in BILL, WBC 15.63, left shift -WBC 15.63, left shift -CXR appears negative for infection and/infiltrate -CT of the head is negative for acute changes but does show encephalomalacia with chronic right cerebral hemisphere and left occipital changes 07/06/21 afebrile today WBC improving from 15 to 12 blood cultures: negative so far urine culture: pending collection continue empiric Cefepime + Doxycycline monitor closely (2) BILL (acute kidney injury): Plan: Possible ATN likely Prerenal etiology crea improving from 2.8 to 2.2 continue D5W appreciate Nephro input (3) Hypernatremia: Plan: likely hypovolemic improving from 152 to 149 continue D5W (4) Acute metabolic encephalopathy: Plan: - Acute, as above - Likely combination of sepsis and hypernatremia - would benefit from formal neurological evaluation as outpatient for possible underlying cognitive disorder/dementia - CT head ith encephalomalacia and likely underlying dementia, pt oriented to self, thinks he is currently in long-term. 07/06/21 improving monitor closely (5) Ischemic cardiomyopathy: Plan: - Echo was recently completed showing preserved EF - EKG reviewed - No current chest pain or complaints. 07/06/21 appears on the dry side monitor while on IV fluids (6) HTN (hypertension): Plan: BP on the lower side likely from, hypovolemia monitor closely (7) Pacemaker: Plan: stable, no chest pain DVT ppx: - Teds, scds, heparin subq CODE: Full Dispo: From [facility], likely dc within 1-2 days (8) HLD (hyperlipidemia): Plan: - Cont statin therapy Admission and Anticipated Discharge Date Admission Date: July 05, 2021 Subjective ff up for acute kidney injury, hypernatremia, etc seen resting in bed, comfortable officers at bedside oriented x 2 answers most questions appropriately intermittently confused states he feels better than yesterday no headache, dizziness, sorethroat, cough, dyspnea, abdominal pain ,nausea, problems with urination or BM states he is just not interested to eat no other symptoms Review of Systems Review of Systems: all noted and negative except for above Physical Exam Physical Exam: General- oriented x 2, not in distress, speaks in sentences with no effort or accessory muscle use Head- atraumatic Eyes- PERRL, EOMI, anicteric ENT- oropharynx clear dry oral mucosa Neck- supple, no JVD, no adenopathy, no thyromegaly; carotids +2/2, no bruits appreciated Lungs- clear to auscultation bilaterally, no rales/wheezes Heart- normal rate, regular rhythm; no murmur, no gallop, no rub appreciated Abdomen- normal bowel sounds, nondistended, soft, nontender, no masses or hepatosplenomegaly Extremities- no pretibial edema, no calf tenderness; peripheral pulses intact Neuro- alert, oriented x 2; CN 2-12 grossly intact; motor 5/5 bilaterally;sensation 100% on all extremities; no other gross focal neurologic deficits Skin- warm & dry Results & Data Results & Data ([facility]) Vital Signs (Past 12 Hours) Vital Signs Temp Pulse Pulse Resp BP Pulse Ox 07/06/21 15:52 36.5 C 71 20 108/65 92 07/06/21 11:36 36.7 C 74 20 118/51 L 97 07/06/21 08:07 36.5 C 79 20 114/64 96 07/06/21 06:07 79 07/06/21 04:13 36.6 C 79 20 97/63 L 96 all noted and reviewed including below (1) Sepsis Acute renal failure type: unspecified Sepsis acute organ dysfunction status: with acute organ dysfunction Sepsis type: sepsis due to unspecified organism Severe sepsis acute organ dysfunction type: acute renal failure Severe sepsis shock status: without septic shock Qualified Code(s): A41.9 - Sepsis, unspecified organism; R65.20 - Severe sepsis without septic shock; N17.9 - Acute kidney failure, unspecified
[2021-07-06] MEDS: CEFEPIME 2,000 MG in SYRINGE 0 ML IV SCH (18:16)
[2021-07-07] MEDS: CEFEPIME 2,000 MG in SYRINGE 0 ML IV SCH ×2 (05:15→17:23)
[2021-07-07] MEDS: DEXTROSE 5% 1,000 ML IV SCH ×2 (05:15→22:01)
--- NOTE | 2021-07-07 05:24 | Electrocardiogram Report ---
Test Reason : Blood Pressure : / mmHG Vent. Rate : 095 BPM Atrial Rate : 095 BPM P-R Int : 176 ms QRS Dur : 112 ms QT Int : 390 ms P-R-T Axes : 058 134 036 degrees QTc Int : 490 ms Normal sinus rhythm Right axis deviation Incomplete right bundle branch block Possible Right ventricular hypertrophy Prolonged QT Abnormal ECG When compared with ECG of 26-MAY-2021 19:31, Incomplete right bundle branch block has replaced Right bundle branch block Confirmed by Sumeet Maloney ([id number]) on 07/07/2021 5:24:34 AM Referred By: [facility] Confirmed By:Sumeet Maloney
[2021-07-07 06:52] LABS: Hematocrit (blood only) 44.3 % (42-52); Hemoglobin 13.9 g/dL (14.0-18.0); Mean Corpuscular Hemoglobin 31.4 pg (25-34); Mean Corpuscular Hgb Conc 31.4 g/dL (32-36); Mean Corpuscular Volume 100.2 fL (80-100); Mean Platelet Volume 11.2 fL (7.4-10.4); Platelet Count 136 K/uL (130-400); RDW Coefficient of Variation 15.3 % (11.5-14.5); RDW Standard Deviation 56.1 fL (36.4-46.3); Red Blood Count 4.42 M/uL (4.7-6.1); White Blood Count 10.21 K/uL (4.8-10.8)
[2021-07-07 07:21] LABS: Albumin Globulin Ratio 1.2 (0.9-2); Albumin Level 3.3 gm/dl (3.4-5.0); BUN Creatinine Ratio 19.5 (10-20); Calcium 8.2 mg/dl (8.5-10.1); Creatinine Clr Calc Pharmacy 45.1 ml/min; Est GFR (African American) 50.1 ml/min; Est GFR (Non-African American) 43.2 ml/min; Globulin 2.7 gm/dl (2.5-4.0); Potassium 3.8 mmol/L (3.5-5.1)
[2021-07-07] MEDS: DOXYCYCLINE HYCLATE 100 MG in DEXTROSE 5% 100 ML IV SCH (08:57)
--- NOTE | 2021-07-07 15:41 | Hospitalist Progress Note ---
Date of Service July 07, 2021 Assessment & Plan (1) Sepsis: Plan: per admitting service notes with addendum: -Initially was hypotensive with BP 79/54 upon arrival to the ER, lactate of 2.8, creatinine bumped to 2.79 and in BILL, WBC 15.63, left shift -WBC 15.63, left shift -CXR appears negative for infection and/infiltrate -CT of the head is negative for acute changes but does show encephalomalacia with chronic right cerebral hemisphere and left occipital changes 07/07/21 afebrile sionce yesterday WBC improving from 15 to 10 blood cultures: negative so far urine culture: pending collection continue empiric Cefepime + Doxycycline Day 2 if afebrile, negative cultures tomorrow, d/c abx monitor closely (2) BILL (acute kidney injury): Plan: Possible ATN likely Prerenal etiology crea improving from 2.8 to 1.5 continue D5W appreciate Nephro input (3) Hypernatremia: Plan: likely hypovolemic improving from 152 to 143 continue D5W (4) Acute metabolic encephalopathy: Plan: - Acute, as above - Likely combination of sepsis and hypernatremia - would benefit from formal neurological evaluation as outpatient for possible underlying cognitive disorder/dementia - CT head iencephalomalacia and likely underlying dementia, pt oriented to self, thinks he is currently in shelter. 07/07/21 improved back to baseline as per Officers at bedside monitor closely (5) Ischemic cardiomyopathy: Plan: - Echo was recently completed showing preserved EF - EKG reviewed - No current chest pain or complaints. 07/07/21 monitor while on IV fluids (6) HTN (hypertension): Plan: BP on the lower side--> now improving monitor closely (7) Pacemaker: Plan: stable, no chest pain DVT ppx: - Teds, scds, heparin subq CODE: Full Dispo: From [facility], likely dc within 1-2 days (8) HLD (hyperlipidemia): Plan: - Cont statin therapy Admission and Anticipated Discharge Date Admission Date: July 05, 2021 Subjective ff up for acute renal failure, hypernatremia, etc seen resting in bed, comfortable oriented x 2, answers most questions appropriately states he feels fine overall no chest pain, dyspnea, palpitations, dizziness no fever/chills no new symptoms states he does not feel like eating encouraged to eat and drink more Review of Systems Review of Systems: all noted and negative except for above Physical Exam Physical Exam: General- oriented x 2, not in distress, speaks in sentences with no effort or accessory muscle use Eyes- anicteric Neck- no JVD Lungs- clear breath sounds bilaterally, no rales/wheezes Heart- normal rate, regular rhythm; no murmurs Abdomen- normal bowel sounds, nondistended, soft, nontender Extremities- no pretibial edema, no calf tenderness Neuro- alert, oriented x 2; no new gross focal neurologic deficits Skin- warm & dry Results & Data Results & Data ([facility]) Vital Signs (Past 12 Hours) Vital Signs Temp Pulse Resp BP Pulse Ox 07/07/21 11:48 36.6 C 64 18 134/71 98 07/07/21 07:58 36.8 C 67 20 121/73 97 07/07/21 05:08 37.0 C 74 16 129/74 92 all noted and reviewed including below (1) Sepsis Acute renal failure type: unspecified Sepsis acute organ dysfunction status: with acute organ dysfunction Sepsis type: sepsis due to unspecified organism Severe sepsis acute organ dysfunction type: acute renal failure Severe sepsis shock status: without septic shock Qualified Code(s): A41.9 - Sepsis, unspecified organism; R65.20 - Severe sepsis without septic shock; N17.9 - Acute kidney failure, unspecified
--- NOTE | 2021-07-07 15:49 | Nephrology Progress Note ---
Date of Service July 07, 2021 Assessment & Plan (1) BILL (acute kidney injury): Plan: improving Stage II acute kidney injury with 1 unmeasured void recorded so far on chart. Baseline creatinine 0.9-1.3. Was 1.3 as of May; was 0.9 at hospital discharge last month during/after close monitoring and intervention to improve labs. Prerenal acute kidney injury with improvement today to 1.5. -no indication for jaquez at this time -no point in collecting urien specimen as has had abtx more than 24 hr now -continue D5 as below -daily bmp WILL SIGN OFF NO OUTPT NEPHRO FOLLOW UP NEEDED THANK YOU FOR CONSULT; PLS CALL IF ? (2) Electrolyte and fluid disorder: Plan: improving but recurrent and chronic hypernatremia and hyperchloremia both from dehydration; -agree w/ neuro +/- speech eval, consider feeding patient/calorie count >continue D5W rate to 60 mL hourly -ok to check bmp daily at this point Admission and Anticipated Discharge Date Admission Date: July 05, 2021 Subjective no interval vevents; no c/o pain or n or sob. Review of Systems Review of Systems: Unobtainable due to cognitive status Physical Exam Constitutional: well developed and well nourished; no acute distress Eyes: EOM intact bilaterally ENMT: Ears: no external ear abnormality Nose: no external nose abnormality Mouth: + dry oral mucous membranes Neck: no nuchal rigidity Respiratory: normal respiratory effort Auscultation: + diminished lung sounds Cardiovascular: RRR, no murmur, no edema Gastrointestinal (Abdomen): Inspection/Auscultation: normal bowel sounds Percussion/Palpation: abdomen soft; abdomen nontender Musculoskeletal: Extremities: strength 5/5 throughout Skin: no rashes, warm and dry Psychiatric: Orientation: oriented to person and cooperative Insight: + limited insight Judgement: + limited judgement Results & Data ([facility]) Vital Signs (Past 12 Hours) Vital Signs Temp Pulse Resp BP Pulse Ox 07/07/21 11:48 36.6 C 64 18 134/71 98 07/07/21 07:58 36.8 C 67 20 121/73 97 07/07/21 05:08 37.0 C 74 16 129/74 92 Laboratory Results 07/07/21 06:27 07/07/21 06:27
[2021-07-08 08:30] LABS: Potassium 3.9 mmol/L (3.5-5.1)
[2021-07-08 08:31] LABS: Albumin Globulin Ratio 1.2 (0.9-2); Albumin Level 3.2 gm/dl (3.4-5.0); BUN Creatinine Ratio 15.4 (10-20); Creatinine Clr Calc Pharmacy 56.7 ml/min; Est GFR (African American) 65.7 ml/min; Est GFR (Non-African American) 56.7 ml/min; Globulin 2.6 gm/dl (2.5-4.0); Total Protein 5.8 gm/dl (6.0-8.3)
[2021-07-08 08:38] LABS: Mean Corpuscular Hgb Conc 33.3 g/dL (32-36); Mean Corpuscular Volume 95.9 fL (80-100); Platelet Count 120 K/uL (130-400); Platelet Estimate Decreased (Normal); RDW Coefficient of Variation 15.1 % (11.5-14.5); RDW Standard Deviation 52.8 fL (36.4-46.3); Red Blood Count 4.38 M/uL (4.7-6.1); White Blood Count 8.42 K/uL (4.8-10.8)
[2021-07-08] MEDS: DEXTROSE 5% 1,000 ML IV SCH (12:48)
--- NOTE | 2021-07-08 14:24 | Hospitalist Progress Note ---
Date of Service July 08, 2021 Assessment & Plan (1) Sepsis: Plan: per admitting service notes with addendum: -Initially was hypotensive with BP 79/54 upon arrival to the ER, lactate of 2.8, creatinine bumped to 2.79 and in BILL, WBC 15.63, left shift -WBC 15.63, left shift -CXR appears negative for infection and/infiltrate -CT of the head is negative for acute changes but does show encephalomalacia with chronic right cerebral hemisphere and left occipital changes 07/08/21 afebrile WBC improving from 15 to 8 blood cultures: negative so far d/c Cefepime + Doxycycline monitor off abx (2) BILL (acute kidney injury): Plan: Possible ATN likely Prerenal etiology crea improved from 2.8 to 1.2 Na 137 d/c D5W (3) Hypernatremia: Plan: likely hypovolemic improving from 152 to 137 dc D5W (4) Acute metabolic encephalopathy: Plan: - Acute, as above - Likely combination of sepsis and hypernatremia - would benefit from formal neurological evaluation as outpatient for possible underlying cognitive disorder/dementia - CT head iencephalomalacia and likely underlying dementia, pt oriented to self, thinks he is currently in senior care. 07/08/21 improved back to baseline as per Officers at bedside monitor closely (5) Ischemic cardiomyopathy: Plan: - Echo was recently completed showing preserved EF - EKG reviewed - No current chest pain or complaints. - euvolemic now (6) HTN (hypertension): Plan: BP on the lower side--> now improving monitor closely (7) Pacemaker: Plan: stable, no chest pain DVT ppx: - Teds, scds, heparin subq CODE: Full Dispo: From [facility], likely dc within 1-2 days (8) HLD (hyperlipidemia): Plan: - Cont statin therapy Admission and Anticipated Discharge Date Admission Date: July 05, 2021 Subjective ff up for acute renal failure, hypernatremia, etc seen resting in bed sleeping but easily awakened oriented x 2 answering questions appropriately states he feels better overall no headache, dizziness, chest pain, cough, abdominal pain, dysuria no other symptoms still has poor appetite Review of Systems Review of Systems: all noted and negative except for above Physical Exam Physical Exam: General- oriented x 2, not in distress, speaks in sentences with no effort or accessory muscle use Eyes- anicteric Neck- no JVD Lungs- clear BS BL Heart- normal rate, regular rhythm; no murmurs Abdomen- normal bowel sounds, nondistended, soft, nontender Extremities- no pretibial edema, no calf tenderness Neuro- alert, oriented x 2; no gross focal neurologic deficits Skin- warm & dry Results & Data Results & Data ([facility]) Vital Signs (Past 12 Hours) Vital Signs Temp Pulse Pulse Resp BP Pulse Ox Pulse Ox 07/08/21 14:00 97 07/08/21 10:55 36.7 C 67 18 121/76 97 07/08/21 08:00 60 07/08/21 07:07 36.4 C L 64 19 118/73 98 07/08/21 04:28 36.9 C 60 17 111/62 94 all noted and reviewed including below (1) Sepsis Acute renal failure type: unspecified Sepsis acute organ dysfunction status: with acute organ dysfunction Sepsis type: sepsis due to unspecified organism Severe sepsis acute organ dysfunction type: acute renal failure Severe sepsis shock status: without septic shock Qualified Code(s): A41.9 - Sepsis, unspecified organism; R65.20 - Severe sepsis without septic shock; N17.9 - Acute kidney failure, unspecified
[2021-07-09 05:12] LABS: Vitamin D, 25 Hydrox 14.3 ng/ml (30-100)
--- NOTE | 2021-07-09 12:08 | Hospitalist Progress Note ---
Date of Service July 09, 2021 Assessment & Plan (1) Sepsis: Plan: per admitting service notes with addendum: Possible Sepsis Infection ruled out -Initially was hypotensive with BP 79/54 upon arrival to the ER, lactate of 2.8, creatinine bumped to 2.79 and in BILL, WBC 15.63, left shift -WBC 15.63, left shift -CXR appears negative for infection and/infiltrate -CT of the head is negative for acute changes but does show encephalomalacia with chronic right cerebral hemisphere and left occipital changes 07/09/21 afebrile since admission WBC improved from 15 to 8 blood cultures: negative empiric Cefepime + Doxycycline discontinued after 2 days (2) BILL (acute kidney injury): Plan: Possible ATN likely Prerenal etiology from poor oral intake given [id number] crea improved from 2.8 to 1.2 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 recommend liberal diet, Boost supplement TID monitor volume status closely, repeat basis metabolic panel in 2-3 days and monitor closely start IV fluids early if with signs of dehydration, poor oral intake will need outpatient Neuro evaluation for possible dementia, may benefit from Aricept to improve cognition and appetite will need to address advance directives as well (3) Hypernatremia: Plan: likely hypovolemic given D5W improved from 152 to 137 (4) Acute metabolic encephalopathy: Plan: - Acute, as above - Likely combination of sepsis and hypernatremia - would benefit from formal neurological evaluation as outpatient for possible underlying cognitive disorder/dementia - CT head iencephalomalacia and likely underlying dementia, pt oriented to self, thinks he is currently in [facility]. 07/09/21 improved back to baseline as per Officers at bedside monitor closely (5) Ischemic cardiomyopathy: Plan: - Echo was recently completed showing preserved EF - EKG reviewed - No current chest pain or complaints. - euvolemic now (6) HTN (hypertension): Plan: BP on the lower side-->improving monitor closely (7) Pacemaker: Plan: stable, no chest pain DVT ppx: - Teds, scds, heparin subq CODE: Full Dispo: return to [facility] discussed with [facility] MD Dr. Tavarez and Leslie in detail (8) HLD (hyperlipidemia): Plan: - Cont statin therapy Admission and Anticipated Discharge Date Admission Date: July 05, 2021 Subjective ff up for acute renal failure, dehydration, etc seen resting in bed, comfortable states he feels fine overall oriented x 2, answering questions appropriately denies chest pain, dyspnea, cough, abdominal pain no dysuria, diarrhea drinking his boost, but having only few bites of food no other symptoms Review of Systems Review of Systems: all noted and negative except for above Physical Exam Physical Exam: General- oriented x 2, not in distress, speaks in sentences with no effort or accessory muscle use Eyes- anicteric Neck- no JVD Lungs- clear breath sounds BL Heart- normal rate, regular rhythm; no murmurs Abdomen- normal bowel sounds, nondistended, soft, nontender Extremities- no pretibial edema, no calf tenderness Neuro- alert, oriented x 2; no gross focal neurologic deficits Skin- warm & dry Results & Data Results & Data ([facility]) Vital Signs (Past 12 Hours) Vital Signs Temp Pulse Pulse Resp BP Pulse Ox 07/09/21 08:00 62 07/09/21 07:36 36.6 C 71 22 113/74 96 07/09/21 04:22 36.8 C 77 17 110/69 97 all noted and reviewed including below (1) Sepsis Acute renal failure type: unspecified Sepsis acute organ dysfunction status: with acute organ dysfunction Sepsis type: sepsis due to unspecified organism Severe sepsis acute organ dysfunction type: acute renal failure Severe sepsis shock status: without septic shock Qualified Code(s): A41.9 - Sepsis, unspecified organism; R65.20 - Severe sepsis without septic shock; N17.9 - Acute kidney failure, unspecified
--- NOTE | 2021-07-09 12:16 | Discharge Summary ---
Date of Service July 09, 2021 Admission HPI Per Admitting Provider This is a 75 yo M inmate from [facility] with PMhx of HTN, HLD, h/o pacemaker, abdominal aortic aneurysm, ischemic cardiomyopathy, reported cognitive disorder with possible dementia presented to ER from [facility] for confusionand worsening mental status. Guards reported that the patient was slumped over in a chair, not acting himself earlier today. He was noted to be hypoxic with O2 sats at 87% on room air. O2 was placed and his saturations improved and was transferred to the hospital He was recently admitted from 06/16-06/24 for acute metabolic encephalopathy, COVID-19 infection and acute respiratory failure with hypoxia, as well as hypernatremia, there was suspected GI bleed at that time with FOBT positive on 06/19 and was referred for outpatient GI follow up. Today the patient has no acute complaints, he reports that he lives in a [facility] and is still there. He is oriented to self, birthday, but can otherwise not give me details or tell me about anything currently going on with current events. He denies any acute pain, complaints, chest pain, fever, chills. He does admit to issues with urination, including increased frequency and burning, but denies blood. Pt denies any current shortness of breath and is currently on room air at 97%. Admission Exam (Per Admitting) Constitutional General: awake, alert, no apparent distress, + pleasantly confused Head: Normocephalic, atraumatic ENT: PERRL, EOMI, no pharyngeal exudate, mucous membranes are dry Chest: Clear to auscultation, on room air with sats at 97% at bedside. no adventitious breath sounds Cardiac: Regular rate and rhythm, no murmur, no JVD, normal peripheral pulses, good capillary refill Abdominal: NABS x 4 quadrants, soft, nondistended, nontender to palpation, no rebound or guarding Extremities: Normal inspection, no peripheral edema or erythema, calfs nontender to palpation Psych: Normal mood and affect Neuro: AAO x 3, strength intact bilaterally and rated 5/5, no motor deficits, speech is clear, no peripheral sensory deficits Discharge Data Consultations 07/05/21 16:19 ED Decision to Admit Stat 07/05/21 16:38 Consult Nephrology Routine Procedures Performed CT OF THE HEAD WITHOUT CONTRAST CLINICAL HISTORY: Altered mental status. COMPARISON STUDY: Head CT June 16, 2021. CT DOSE: 1989.72 mGycm TECHNIQUE: Helical axial images of the head were obtained without IV contrast. Automated exposure control was utilized for the study. A dose lowering technique was utilized adhering to the principles of ALARA. FINDINGS: No acute intracranial hemorrhage, midline shift or mass effect is present. Ventricular system is unremarkable. Basal cisterns are patent. There are no extra axial collections. Encephalomalacia within the right cerebellar hemisphere is unchanged since prior head CT. This is chronic. There is also a small focus of encephalomalacia within the left occipital lobe which is also unchanged. White matter hypodensities are similar to prior exam and favor small vessel disease. There are no findings to suggest acute dural sinus thrombosis or acute territorial infarct. The appearance of the brain is unchanged. There are no significant calvarial abnormalities. IMPRESSION: 1. No acute intracranial findings. 2. No change in appearance of the brain. 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 ACT 112: Negative or not required by law. ULTRASOUND KIDNEYS AND BLADDER CLINICAL HISTORY: Acute renal insufficiency. Hyponatremia. COMPARISON STUDY: No priors TECHNIQUE: Real-time, grayscale, and color flow sonography of the kidneys and bladder is performed. Images are reviewed in the transverse and longitudinal planes. FINDINGS: Kidneys: The kidneys demonstrate cortical atrophy. Echotexture is normal. The right kidney measures 10.9 x 5.4 x 5.9 cm and the left kidney measures 10.2 x 4.6 x 5.7 cm. There is no hydronephrosis. No shadowing renal calculi are identified. There is no sonographic evidence of contour deforming renal mass lesion. No perinephric fluid is identified. Bladder: The partially distended bladder is normal in appearance. Ureteral jets were not seen. Upper abdomen: Survey images of the liver show evidence of steatosis. IMPRESSION: 1. The kidneys demonstrate cortical atrophy and are without hydronephrosis. 2. The bladder is normal as visualized. ACT 112: Negative or not required by law. Hospital Course (1) Sepsis: per admitting service notes with addendum: Possible Sepsis Infection ruled out -Initially was hypotensive with BP 79/54 upon arrival to the ER, lactate of 2.8, creatinine bumped to 2.79 and in BILL, WBC 15.63, left shift -WBC 15.63, left shift -CXR appears negative for infection and/infiltrate -CT of the head: negative for acute changes but does show encephalomalacia with chronic right cerebral hemisphere and left occipital changes 1. No acute intracranial findings. 2. No change in appearance of the brain. 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 consulted recommend liberal diet, Boost supplement TID monitor volume status closely, repeat basis metabolic panel in 2-3 days and monitor closely start IV fluids early if with signs of dehydration, poor oral intake will need outpatient Neuro evaluation for possible dementia, may benefit from Aricept to improve cognition and appetite will need to address advance directives as well (3) Hypernatremia: likely hypovolemic given D5W improved from 152 to 137 (4) Acute metabolic encephalopathy: - Acute, as above - Likely combination of sepsis and hypernatremia - would benefit from formal neurological evaluation as outpatient for possible underlying cognitive disorder/dementia - CT head iencephalomalacia and likely underlying dementia, pt oriented to self, thinks he is currently in [facility]. [facility] head: 1. No acute intracranial findings. 2. No change in appearance of the brain. 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 07/09/21 improved back to baseline as per Officers at bedside monitor closely may benefit from daily Aspirin 81mg po daily for stroke prevention given CT head findings (5) Ischemic cardiomyopathy: - Echo was recently completed showing preserved EF - EKG reviewed - No current chest pain or complaints. - euvolemic now (6) HTN (hypertension): BP on the lower side-->improving monitor closely (7) Pacemaker: stable, no chest pain DVT ppx: - Teds, scds, heparin subq CODE: Full Dispo: return to [facility] discussed with [facility] KADEN Tavarez and ABIMBOLA Nleson in detail (8) HLD (hyperlipidemia): - Cont statin therapy
== END 2021-07-09 14:29 | DRG 871 ==
LOC: ED 14:38 → SUATTDRO 16:25 → 2E 16:25 → 2S 07-07 18:26

== ENCOUNTER 2023-10-04 11:39 | Inpatient (IN) ==
[~2023-10-04 11:39] MED LIST: SODIUM CHLORIDE 0.9% 250 ML IV PRN
[2023-10-04] MEDS: PANTOprazole 80 MG in DEXTROSE 5% 100 ML IV ONE (11:50)
[2023-10-04] MEDS: PANTOprazole 40 MG in DEXTROSE 5% MINI-B 100 ML IV SCH (12:06)
[2023-10-04 12:07] LABS: iSTAT Creatinine 1.9 mg/dl (0.6-1.3); iSTAT Hemoglobin 10.5 g/dl (14.0-18.0); iSTAT Ionized Calcium 1.13 mmol/l (1.12-1.32); iSTAT Potassium 4.3 mmol/L (3.3-5.0)
[2023-10-04 12:11] LABS: Basophils # (auto) 0.04 K/uL (0.00-0.20); Basophils % (auto) 0.4 %; Eosinophils # (auto) 0.03 K/uL (0.00-0.50); Eosinophils % (auto) 0.3 %; Hematocrit (blood only) 33.5 % (42.0-52.0); Hemoglobin 10.7 g/dl (14.0-18.0); Immature Granulocytes % (auto) 0.9 %; Lymphocytes # (auto) 1.52 K/uL (1.20-3.40); Lymphocytes % (auto) 13.4 %; Mean Corpuscular Hemoglobin 31.4 pg (25.0-34.0); Mean Corpuscular Hgb Conc 31.9 g/dL (32.0-36.0); Mean Corpuscular Volume 98.2 fL (80.0-100.0); Mean Platelet Volume 10.2 fL (9.4-12.4); Monocytes # (auto) 0.76 K/uL (0.11-0.59); Monocytes % (auto) 6.7 %; Neutrophils # (auto) 8.87 K/uL (1.40-6.50); Neutrophils % (auto) 78.3 %; Platelet Count 175 K/uL (130-400); RDW Coefficient of Variation 13.4 % (11.5-14.5); RDW Standard Deviation 47.8 fL (36.4-46.3); Red Blood Count 3.41 M/uL (4.70-6.10); White Blood Count 11.32 K/ul (4.8-10.8)
[2023-10-04] MEDS: TRANEXAMIC ACID / 0.7% NACL 1,000 MG/100 ML BAG IV STA (12:11)
[2023-10-04 12:30] LABS: Albumin Globulin Ratio 1.4 (0.9-2); BUN Creatinine Ratio 35.1 (10-20); Bilirubin,Total 1.7 mg/dl (0.2-1.0); Calcium 8.2 mg/dl (8.6-10.3); Creatinine Clr Calc Pharmacy 41.6 ml/min; Est GFR (African American) 42.6 ml/min; Est GFR (Non-African American) 36.7 ml/min; Globulin 2.1 gm/dl (2.5-4.0); Potassium 4.3 mmol/L (3.5-5.1); Total Protein 5.1 gm/dl (6.0-8.3)
--- NOTE | 2023-10-04 12:34 | Electrocardiogram Report ---
Test Reason : Blood Pressure : / mmHG Vent. Rate : 093 BPM Atrial Rate : 093 BPM P-R Int : 196 ms QRS Dur : 128 ms QT Int : 402 ms P-R-T Axes : 059 -36 037 degrees QTc Int : 499 ms Sinus rhythm with with occasional Premature ventricular complexes Left axis deviation Right bundle branch block Abnormal ECG When compared with ECG of 10-MAY-2022 11:02, Premature ventricular complexes now present Confirmed by Roosevelt Crum ([id number]) on 10/04/2023 12:34:40 PM Referred By: [facility] Confirmed By:Roosevelt Crum
[2023-10-04 12:35] LABS: Troponin I High Sensitivity 10.8 pg/ml (0-20)
[2023-10-04 12:37] LABS: INR 1.1 (0.9-1.1); Partial Thromboplastin Ratio 0.8; Partial Thromboplastin Time 21 Seconds (21-31); Prothrombin Time 11.8 Seconds (9.0-12.0)
[2023-10-04] MEDS: NOREPINEPHRINE/D5W 4 MG/250 ML IV ONE (12:45)
[2023-10-04] MEDS: TRANEXAMIC ACID / 0.7% NACL 1000MG/100ML BAG IV ONE (12:45)
[2023-10-04] MEDS: PANTOPRAZOLE BOLUS/DRIP IV STA (12:46)
--- NOTE | 2023-10-04 13:19 | CT Scan Report ---
ABDOMEN AND PELVIS CT WITHOUT CONTRAST CT DOSE: 1355.18 mGy.cm HISTORY: rectal bleed, [place], hypotensive TECHNIQUE: Multiaxial CT images of the abdomen and pelvis were performed without contrast. A dose lo wering technique was utilized adhering to the principles of ALARA. COMPARISON STUDY: Abdomen and pelvis CT 05/10/2022. FINDINGS: There are few punctate calcified granulomas within the left lower lobe. The right lung base is clear. No pneumoperitoneum. No pneumatosis. No acute fractures. Pacemaker wires are noted. The he art is normal in size. The unenhanced liver, spleen, and adrenal glands are unremarkable. A few bilat eral peripelvic renal cysts again noted. No hydronephrosis. Mild periportal lymphadenopathy. This may be reactive. Multiple gallstones including a few stones within the neck of the gallbladder. There is mild pericholecystic inflammatory change. This is concerning for an acute cholecystitis. There are 2 stones within the distal common bile duct measuring 7 mm on images 122 and 135. There is inflammator y change surrounding the head of the pancreas and proximal duodenum consistent with an acute pancreat itis. This favors a gallstone pancreatitis. There is mild thickening within the second portion of the duodenum which is likely reactive to the adjacent acute pancreatitis. A duodenitis can also have a s imilar appearance. There is a 4.5 cm infrarenal abdominal aortic aneurysm. This has slightly increase d in size. No pelvic lymphadenopathy or pelvic free fluid. Normal bladder. Fluid-filled nondistended colon. Colonic diverticulosis. No evidence for acute diverticulitis. No evidence for bowel obstructio n. Normal appendix. IMPRESSION: 1. Multiple gallstones including a few stones within the neck of the gallbladder. There is mild peric holecystic inflammatory change. This is concerning for an acute cholecystitis. 2. There are also 2 stones within the distal common bile duct measuring 7 mm with inflammatory change surrounding the head of the pancreas and proximal duodenum consistent with an acute pancreatitis. Th is favors a gallstone pancreatitis. 3. Fluid-filled nondilated colon. This may correspond to the patient's history of a GI bleed. A gastr oenteritis/diarrheal illness also remains in the differential diagnosis. 4. Colonic diverticulosis. No evidence for acute diverticulitis. 5. Mild periportal lymphadenopathy. This may be reactive. 6. Slight increase in size in the 4.5 cm infrarenal abdominal aortic aneurysm. 7. Additional findings as described above. ACT 112: Negative or not required by law. Electronically signed by: Benji Henley M.D. 10/04/2023 1:17 PM
--- NOTE | 2023-10-04 13:23 | Emergency Department Note ---
Impression & Plan Bright red rectal bleeding, Acute gallstone pancreatitis, Cholecystitis ED Provider Note Provider: Scott Paula MD DATE OF SERVICE: 10/04/2023 CHIEF COMPLAINT: Rectal bleeding, low blood pressure HISTORY OF PRESENT ILLNESS: Patient is a 77-year-old gentleman past medical history significant for hypertension, ischemic or myopathy, and some cognitive changes presenting here today from the present via ambulance. Patient states on Saturday started with some vomiting has not eaten much last day or 2. EMS reports prior to arrival to the patient has been having significant rectal bleeding since starting yesterday was hypotensive into the 60s systolic for EMS. Received a liter of lactated Ringer's prior to arrival as well as some push dose epinephrine. Patient upon arrival denies any vomiting or abdominal pain. Denies significant lightheadedness or chest pain. Does have black to maroon stool present in adult diaper. Denies a history of blood transfusions. Denies GI bleed to his recollection. PAST MEDICAL HISTORY: As noted above MEDICATIONS: Reviewed home medications has not taken his blood pressure medicine in several days SOCIAL HISTORY: Prisoner at the [facility] correctional institution PHYSICAL EXAM: GENERAL: alert and oriented in no acute distress on stretcher guards at bedside, shackled Head: normocephalic and atraumatic EYES: No injection, discharge or icterus. NECK: Trachea midline. ENT: Mucous membranes pink and moist. LUNGS: Airway patent. No retractions. Breath sounds clear HEART: Regular rate and rhythm. No chest wall tenderness ABDOMEN: Soft and non-tender, without guarding or rebound. Adult diaper filled with black to maroon stool. SKIN: Acyanotic, warm, dry, without rashes EXTREMITIES: Without swelling, tenderness or deformity NEUROLOGICAL: No focal deficits moving all extremity. No aphasia. No facial droop or slurred speech. EK bpm normal sinus rhythm with PVC. Right bundle branch block evident with left axis. No acute ST segment elevation with nonspecific T wave changes. QTc 499. CONTINUOUS CARDIAC MONITORING: was ordered and showed a heart rate of 80s-90s bpm in normal sinus rhythm with occasional PVCs Patient's laboratory studies and imaging reviewed. Differential includes Diverticulosis, AVM, coagulopathy, colitis, inflammatory bowel disease, malignancy, Patience-Rahman tear, esophagitis, peptic ulcer disease, variceal bleed, gastritis, epistaxis, fissure, hemorrhoids, as well as other pathologies. IMPRESSION/MEDICAL DECISION MAKING: Upon arrival blood pressure initially stable and not tachycardic. Blood pressure begins to drop however. Received additional 500 mL crystalloid and 1 unit of uncrossed blood due to his hypotension with active rectal bleed noted. Benign abdomen on exam. [id number] hemoglobin as well as formal hemoglobin confirmed in the mid tens lower than previous but not severely low. Has had some decreased intake. No fevers reported. The present did start him on Cipro but the patient's not the best historian. Does have some evidence of hypernatremia as well as acute kidney injury compared to previous with an elevated BUN. Lactates elevated. Bilirubin AST ALT mildly elevated. Doubt pancreatitis. Question how much of this is more lower rather than upper GI bleed has not had bloody vomiting by report. Did give a Protonix bolus and drip. Given the hypotension addition uncrossed blood he received 1 g of TXA. Blood pressure does stabilize some with this. Patient is mentating appropriately. Troponin not elevated. CT scan without contrast given his renal dysfunction completed look for intra-abdominal pathology. Repeat lactate and H&H ordered after first unit of blood. CT report per radiology shows multiple gallstones with mild inflammation concerning for cholecystitis with possibly gallstone pancreatitis. Fluid-filled nondilated colon is noted. No other acute internal bleeding reported. CBD dilation noted with stone. Discussed with GI and given this finding and likely need for ERCP recommended transfer. Discussed with the patient was agreeable to transfer and reach out to [facility]. Will cover with antibiotics with Cipro and Flagyl given Augmentin allergy with unknown reaction. Again not significantly tender but imaging is concerning for this as well as acute cholecystitis. Repeat lactate is improving. Question how much this is hypotension from rectal bleed versus dehydration and possibly sepsis. Discussed with marketing administrative assistant triage officer at [facility] and accepted there. Awaiting bed. Patient agreeable with transfer. Attempted to contact daughter but no answer at the phone number he gave me. Given his stability at this point feel that likely ground transport would be reasonable. DIAGNOSIS: Rectal bleed, gallstone pancreatitis/acute cholecystitis DISPOSITION: Transfer to [facility] pending. Signed out to Dr. Uribe pending open bed and transport. Critical Care I have personally spent 75 minutes of critical care time in the direct management of this patient. This includes bedside care, interpretation of diagnostic studies, and testing, discussion with consultants, patient, and other required patient management activities. These 75 minutes is in excess of all separately billable procedures. Past Med/Surg History Problem List (Updated 10/04/23 @ 16:47 by Scott Paula M.D.) Cholecystitis (Acute) Acute gallstone pancreatitis (Acute) Bright red rectal bleeding (Acute) Incontinence Dehydration with hypernatremia (Acute) Electrolyte and fluid disorder Sepsis Fever Hypernatremia COVID-19 (Acute) Acute confusion (Acute) Acute hypernatremia (Acute) BILL (acute kidney injury) (Acute) HTN (hypertension) HLD (hyperlipidemia) Pacemaker Ischemic cardiomyopathy Cognitive changes Altered mental status Hypoxia Acute metabolic encephalopathy (Acute) Hyponatremia Medical History Abdominal aortic aneurysm Cognitive changes HLD (hyperlipidemia) HTN (hypertension) Ischemic cardiomyopathy Pacemaker Social History Smoking Status: Former smoker Tobacco Type: Cigarettes Hx Alcohol Use: No Hx Substance Use: No Preferred Language: Japanese Communication Ability: Effective Regional Psychiatric Director Required: No Beliefs That Will Affect Care: None marital status: Current Living Situation: Other Current Living Situation Comment: [facility] Feels Safe at Home: Yes Assistive Devices: None Allergies Allergies Allergy/AdvReac Type Severity Reaction Status Date / Time adhesive tape Allergy Unknown SCI SHEBA Verified 10/04/23 15:05 [facility] MED LIST amoxicillin [From Augmentin] Allergy Unknown SCI SHEBA Verified 10/04/23 15:05 [facility] MED LIST clavulanic acid Allergy Unknown SCI SHEBA Verified 10/04/23 15:05 [From Augmentin] [facility] MED LIST ultrasound coupling medium Allergy Unknown SCI SHEBA Verified 10/04/23 15:05 [facility] MED LIST Home Meds Home Medications Medication Instructions Recorded Confirmed rosuvastatin 5 mg tablet 5 mg PO HS 06/16/21 10/04/23 irbesartan 150 mg tablet (Avapro) 150 mg PO DAILY 07/04/23 10/04/23 ciprofloxacin HCl 500 mg tablet 500 mg PO BID 10/04/23 10/04/23 (Cipro) Results & Data (ED) Vital Signs Vital Signs - 24 hr 10/04/23 11:51 10/04/23 12:03 10/04/23 12:10 Temperature 36.7 C 36.7 C Temperature Source Oral Oral Pulse Rate 95 H 92 H 89 Pulse Rate [Right Finger] Pulse Rate from SpO2 Sensor Pulse Rhythm Regular Regular Pulse Rhythm [Right Finger] Pulse Strength Normal Normal Pulse Strength [Right Finger] Respiratory Rate 20 20 Respiratory Effort / Characteristics Non-Labored Spontaneous Respiratory Depth Normal Respiratory Pattern Regular Blood Pressure 100/70 87/49 L Blood Pressure [Right Arm] Blood Pressure Mean 80 61 Blood Pressure Mean [Right Arm] Blood Pressure Position Lying Lying Blood Pressure Position [Right Arm] Pulse Oximetry 94 96 Oxygen Delivery Method Room Air Sepsis Recent Fever Within 48 Hours No Sepsis New/Unexplained Change in Mental Status N/A Sepsis Action Taken by Nursing No Action Required 10/04/23 12:12 10/04/23 12:12 10/04/23 12:33 Temperature 36.7 C 36.7 C Temperature Source Oral Oral Pulse Rate 97 H Pulse Rate [Right Finger] 94 H 87 Pulse Rate from SpO2 Sensor Pulse Rhythm Regular Pulse Rhythm [Right Finger] Regular Regular Pulse Strength Pulse Strength [Right Finger] Normal Normal Respiratory Rate 20 20 20 Respiratory Effort / Characteristics Non-Labored Spontaneous Non-Labored Spontaneous Respiratory Depth Normal Normal Respiratory Pattern Regular Regular Blood Pressure Blood Pressure [Right Arm] 105/53 L 119/78 Blood Pressure Mean Blood Pressure Mean [Right Arm] 70 91 Blood Pressure Position Blood Pressure Position [Right Arm] Semi-fowlers Semi-fowlers Pulse Oximetry 96 96 96 Oxygen Delivery Method Room Air Room Air Room Air Sepsis Recent Fever Within 48 Hours Sepsis New/Unexplained Change in Mental Status Sepsis Action Taken by Nursing 10/04/23 12:33 10/04/23 12:43 10/04/23 12:44 Temperature Temperature Source Pulse Rate 89 92 H 91 H Pulse Rate [Right Finger] Pulse Rate from SpO2 Sensor 93 H 91 H Pulse Rhythm Pulse Rhythm [Right Finger] Pulse Strength Pulse Strength [Right Finger] Respiratory Rate 16 19 Respiratory Effort / Characteristics Respiratory Depth Respiratory Pattern Blood Pressure 118/61 118/54 L Blood Pressure [Right Arm] Blood Pressure Mean 80 75 Blood Pressure Mean [Right Arm] Blood Pressure Position Blood Pressure Position [Right Arm] Pulse Oximetry 97 97 Oxygen Delivery Method Sepsis Recent Fever Within 48 Hours Sepsis New/Unexplained Change in Mental Status Sepsis Action Taken by Nursing 10/04/23 12:46 10/04/23 15:02 10/04/23 16:32 Temperature Temperature Source Pulse Rate 88 85 Pulse Rate [Right Finger] 85 Pulse Rate from SpO2 Sensor 88 Pulse Rhythm Pulse Rhythm [Right Finger] Pulse Strength Pulse Strength [Right Finger] Respiratory Rate 20 18 Respiratory Effort / Characteristics Respiratory Depth Respiratory Pattern Blood Pressure Blood Pressure [Right Arm] 131/76 Blood Pressure Mean Blood Pressure Mean [Right Arm] 94 Blood Pressure Position Blood Pressure Position [Right Arm] Pulse Oximetry 97 98 Oxygen Delivery Method Room Air Sepsis Recent Fever Within 48 Hours Sepsis New/Unexplained Change in Mental Status Sepsis Action Taken by Nursing Laboratory Data 10/04/23 13:29 10/04/23 11:52 Lab Results 10/04/23 10/04/23 10/04/23 Range/Units 11:52 11:53 11:55 WBC 11.32 H (4.8-10.8) K/ul RBC 3.41 L (4.70-6.10) M/uL Hgb 10.7 L (14.0-18.0) g/dl POC Hgb 10.5 L (14.0-18.0) g/dl Hct 33.5 L (42.0-52.0) % POC Hct 31 L (42-52) % MCV 98.2 (80.0-100.0) fL MCH 31.4 (25.0-34.0) pg MCHC 31.9 L (32.0-36.0) g/dL RDW Std Deviation 47.8 H (36.4-46.3) fL RDW Coeff of Delilah 13.4 (11.5-14.5) % Plt Count 175 (130-400) K/uL MPV 10.2 (9.4-12.4) fL Immature Gran % (Auto) 0.9 % Neut % (Auto) 78.3 % Lymph % (Auto) 13.4 % [place] % (Auto) 6.7 % Eos % (Auto) 0.3 % Baso % (Auto) 0.4 % Neut # (Auto) 8.87 H (1.40-6.50) K/uL Lymph # (Auto) 1.52 (1.20-3.40) K/uL [place] # (Auto) 0.76 H (0.11-0.59) K/uL Eos # (Auto) 0.03 (0.00-0.50) K/uL Baso # (Auto) 0.04 (0.00-0.20) K/uL Immature Gran # (Auto) 0.10 (0.01-0.20) K/uL PT 11.8 (9.0-12.0) Seconds INR 1.1 (0.9-1.1) APTT 21 (21-31) Seconds PTT Ratio 0.8 POC Sodium 148 H (135-144) mmol/L Sodium 147 H (136-145) mmol/L POC Potassium 4.3 (3.3-5.0) mmol/L Potassium 4.3 (3.5-5.1) mmol/L POC Chloride 115 H (101-112) mmol/L Chloride 115 H (98-107) mmol/L Carbon Dioxide 24 (21-32) mmol/L POC Total CO2 23 L (24-31) mmol/L Anion Gap 8 (3-11) POC Anion Gap 16.0 (16-25) mmol/L POC BUN 49 H (7-18) mg/dl BUN 61 H (6-23) mg/dl Creatinine 1.74 H (0.6-1.4) mg/dl POC Creatinine 1.9 H (0.6-1.3) mg/dl Est Cr Clr Drug Dosing 41.6 ml/min Est GFR ( Amer) 42.6 ml/min Est GFR (Non-Af Amer) 36.7 ml/min BUN/Creatinine Ratio 35.1 H (10-20) Glucose 118 H (70-99(Fasting)) mg/dl POC Glucose (other) 119 H (70-99) mg/dl Lactate 3.1 H* (0.4-2.0) mmol/L Calcium 8.2 L (8.6-10.3) mg/dl POC Ioniz Calcium Janis 1.13 (1.12-1.32) mmol/l Total Bilirubin 1.7 H (0.2-1.0) mg/dl AST 74 H (13-39) U/L ALT 150 H (7-52) U/L Alkaline Phosphatase 180 H (34-104) U/L Troponin I High Sens 10.8 (0-20) pg/ml Total Protein 5.1 L (6.0-8.3) gm/dl Albumin 3.0 L (3.4-5.0) gm/dl Globulin 2.1 L (2.5-4.0) gm/dl Albumin/Globulin Ratio 1.4 (0.9-2) Lipase 140 H (11-82) U/L SARS-CoV-2, RNA, NAAT (NEGATIVE) Blood Type O Positive Blood Type Recheck O Positive Antibody Screen NEGATIVE Crossmatch See Detail 10/04/23 10/04/23 10/04/23 Range/Units 12:32 13:29 13:52 WBC (4.8-10.8) K/ul RBC (4.70-6.10) M/uL Hgb 10.4 L (14.0-18.0) g/dl POC Hgb (14.0-18.0) g/dl Hct 32.1 L (42.0-52.0) % POC Hct (42-52) % MCV (80.0-100.0) fL MCH (25.0-34.0) pg MCHC (32.0-36.0) g/dL RDW Std Deviation (36.4-46.3) fL RDW Coeff of Delilah (11.5-14.5) % Plt Count (130-400) K/uL MPV (9.4-12.4) fL Immature Gran % (Auto) % Neut % (Auto) % Lymph % (Auto) % [place] % (Auto) % Eos % (Auto) % Baso % (Auto) % Neut # (Auto) (1.40-6.50) K/uL Lymph # (Auto) (1.20-3.40) K/uL [place] # (Auto) (0.11-0.59) K/uL Eos # (Auto) (0.00-0.50) K/uL Baso # (Auto) (0.00-0.20) K/uL Immature Gran # (Auto) (0.01-0.20) K/uL PT (9.0-12.0) Seconds INR (0.9-1.1) APTT (21-31) Seconds PTT Ratio POC Sodium (135-144) mmol/L Sodium (136-145) mmol/L POC Potassium (3.3-5.0) mmol/L Potassium (3.5-5.1) mmol/L POC Chloride (101-112) mmol/L Chloride (98-107) mmol/L Carbon Dioxide (21-32) mmol/L POC Total CO2 (24-31) mmol/L Anion Gap (3-11) POC Anion Gap (16-25) mmol/L POC BUN (7-18) mg/dl BUN (6-23) mg/dl Creatinine (0.6-1.4) mg/dl POC Creatinine (0.6-1.3) mg/dl Est Cr Clr Drug Dosing ml/min Est GFR ( Amer) ml/min Est GFR (Non-Af Amer) ml/min BUN/Creatinine Ratio (10-20) Glucose (70-99(Fasting)) mg/dl POC Glucose (other) (70-99) mg/dl Lactate 1.6 1.7 (0.4-2.0) mmol/L Calcium (8.6-10.3) mg/dl POC Ioniz Calcium Janis (1.12-1.32) mmol/l Total Bilirubin (0.2-1.0) mg/dl AST (13-39) U/L ALT (7-52) U/L Alkaline Phosphatase (34-104) U/L Troponin I High Sens (0-20) pg/ml Total Protein (6.0-8.3) gm/dl Albumin (3.4-5.0) gm/dl Globulin (2.5-4.0) gm/dl Albumin/Globulin Ratio (0.9-2) Lipase (11-82) U/L SARS-CoV-2, RNA, NAAT NEGATIVE (NEGATIVE) Blood Type Blood Type Recheck Antibody Screen Crossmatch Administered Medications Pantoprazole Sodium 40 mg/ (Dextrose) 100 mls @ 20 mls/hr IV Q5H [facility] Stop: 11/03/23 11:59 Last Admin: 10/04/23 12:06 Dose: 8 mg/hr, 20 mls/hr Documented By: ANDREAS Discontinued Medications Pantoprazole Sodium 80 mg/ (Dextrose) 120 mls @ 480 mls/hr IV NOW ONE Stop: 10/04/23 11:49 Last Infusion: 10/04/23 12:17 Dose: Infused Documented By: Admin: 10/04/23 11:50 Dose: 480 mls/hr Documented By: ANDREAS Tranexamic Acid (Tranexamic Acid / 0.7% Nacl) 1,000 mg in 100 mls @ 600 mls/hr IV NOW STA Stop: 10/04/23 12:09 Last Infusion: 10/04/23 12:31 Dose: Infused Documented By: Admin: 10/04/23 12:11 Dose: 600 mls/hr Documented By: ANDREAS Sodium Chloride (Nss) 500 mls @ 999 mls/hr IV .Q31M ONE Stop: 10/04/23 14:11 Last Infusion: 10/04/23 15:15 Dose: Infused Documented By: Admin: 10/04/23 14:34 Dose: 999 mls/hr Documented By: GIA Ciprofloxacin (Cipro / D5w) 400 mg in 200 mls @ 200 mls/hr IV NOW STA Stop: 10/04/23 14:47 Last Infusion: 10/04/23 16:14 Dose: Infused Documented By: Admin: 10/04/23 14:34 Dose: 200 mls/hr Documented By: GIA Metronidazole (Flagyl) 500 mg in 100 mls @ 100 mls/hr IV NOW STA; Protocol Stop: 10/04/23 14:48 Last Infusion: 10/04/23 15:14 Dose: Infused Documented By: Admin: 10/04/23 14:34 Dose: 100 mls/hr Documented By: GIA Norepinephrine Bitartrate (Norepinephrine/D5w 4 Mg/250 Ml) Confirm Administered Dose 4 mg IV .STK-MED ONE Stop: 10/04/23 11:38 Last Admin: 10/04/23 12:45 Dose: Not Given Documented By: GIA Pantoprazole Sodium (Pantoprazole Bolus/Drip) 1 each IV NOW STA Stop: 10/04/23 11:36 Last Admin: 10/04/23 12:46 Dose: Not Given Documented By: GIA Tranexamic Acid (Tranexamic Acid / 0.7% Nacl 1000mg/100ml Bag) Confirm Administered Dose 1,000 mg IV .STK-MED ONE Stop: 10/04/23 11:38 Last Admin: 10/04/23 12:45 Dose: Not Given Documented By: GIA Imaging Data Radiologist's Impression: Abdomen/Pelvis CT 10/04/23 12:[address] WITHOUT CONTRAST CT DOSE: 1355.18 mGy.cm HISTORY: rectal bleed, bill, hypotensive TECHNIQUE: Multiaxial CT images of the abdomen and pelvis were performed without contrast. A dose lowering technique was utilized adhering to the principles of ALARA. COMPARISON STUDY: Abdomen and pelvis CT 05/10/2022. FINDINGS: There are few punctate calcified granulomas within the left lower lobe. The right lung base is clear. No pneumoperitoneum. No pneumatosis. No acute fractures. Pacemaker wires are noted. The heart is normal in size. The unenhanced liver, spleen, and adrenal glands are unremarkable. A few bilateral peripelvic renal cysts again noted. No hydronephrosis. Mild periportal lymphadenopathy. This may be reactive. Multiple gallstones including a few stones within the neck of the gallbladder. There is mild pericholecystic inflammatory change. This is concerning for an acute cholecystitis. There are 2 stones within the distal common bile duct measuring 7 mm on images 122 and 135. There is inflammatory change surrounding the head of the pancreas and proximal duodenum consistent with an acute pancreatitis. This favors a gallstone pancreatitis. There is mild thickening within the second portion of the duodenum which is likely reactive to the adjacent acute pancreatitis. A duodenitis can also have a similar appearance. There is a 4.5 cm infrarenal abdominal aortic aneurysm. This has slightly increased in size. No pelvic lymphadenopathy or pelvic free fluid. Normal bladder. Fluid-filled nondistended colon. Colonic diverticulosis. No evidence for acute diverticulitis. No evidence for bowel obstruction. Normal appendix. IMPRESSION: 1. Multiple gallstones including a few stones within the neck of the gallbladder. There is mild pericholecystic inflammatory change. This is concerning for an acute cholecystitis. 2. There are also 2 stones within the distal common bile duct measuring 7 mm with inflammatory change surrounding the head of the pancreas and proximal duodenum consistent with an acute pancreatitis. This favors a gallstone pancreatitis. 3. Fluid-filled nondilated colon. This may correspond to the patient's history of a GI bleed. A gastroenteritis/diarrheal illness also remains in the differential diagnosis. 4. Colonic diverticulosis. No evidence for acute diverticulitis. 5. Mild periportal lymphadenopathy. This may be reactive. 6. Slight increase in size in the 4.5 cm infrarenal abdominal aortic aneurysm. 7. Additional findings as described above. ACT 112: Negative or not required by law. Electronically signed by: Benji Henley M.D. 10/04/2023 1:17 PM Discharge Plan Visit Data Chief Complaint: Rectal Bleed Stated Complaint: RECTAL BLEED, WEAKNESS, HYPOTENSION ED Provider: Wojciech Uribe Discharge Problem: Bright red rectal bleeding, Acute gallstone pancreatitis, Cholecystitis Patient Disposition: Transfer Acute Care Hospital Forms Stand Alone Forms: [facility] Prescriptions Prescriptions: No Action irbesartan [Avapro] 150 mg tablet 150 mg PO DAILY rosuvastatin 5 mg Tablet 5 mg PO HS ciprofloxacin HCl [Cipro] 500 mg Tablet 500 mg PO BID Rx Instructions: STARTED 10/03/23 FOR 7 DAYS Referrals Referrals: Sheba VILLEDA [Primary Care Provider] -
[2023-10-04 14:04] LABS: Hematocrit (blood only) 32.1 % (42.0-52.0); Hemoglobin 10.4 g/dl (14.0-18.0)
[2023-10-04] MEDS: metroNIDAZOLE 500 MG/100 ML BAG IV STA (14:34)
[2023-10-04] MEDS: SODIUM CHLORIDE 0.9% 500 ML IV ONE (14:34)
[2023-10-04] MEDS: CIPROFLOXACIN / D5W 400 MG/200 ML BAG IV STA (14:34)
--- NOTE | 2023-10-04 16:44 | Emergency Department Note ---
ED Visit Note Patient was signed out to me at change of shift by Dr. Paula, pending transfer to [facility] in [facility] upon bed obdulia dc. Patient presented with hypotension, findings of choledocholithiasis, acute cholecystitis, and gallstone pancreatitis on CT imaging were found, and arrangements have been made for the patient to be transferred to [facility] for ERCP. patient was transfused 2 units of packed red blood cells for GI bleeding with hypotension, in addition he was started on ciprofloxacin and Flagyl. I was made aware at approximately 8 PM by the ED financial secretary that the patient will not have an available bed at [facility] until likely tomorrow. Given this, I did discuss the patient's presentation with the on-call hospitalist, Dr. Aceves, and he was in agreement to accept the patient until his bed is available for transfer at [facility] in [place]. On my assessment of the patient prior to admission, he is hemodynamically stable, blood pressure is 124/71, heart rate is in the 80s, patient is saturating well on room air, patient is in agreement for admission. His abdomen is soft and nontender on my exam. Bedside longterm staff was updated on this plan. .
[2023-10-04] MEDS: LACTATED RINGER'S 1,000 ML IV SCH (16:58)
[2023-10-04] MEDS: metroNIDAZOLE 500 MG/100 ML BAG IV SCH (21:40)
[2023-10-04 22:06] LABS: BUN Creatinine Ratio 38.8 (10-20); Calcium 7.3 mg/dl (8.6-10.3); Creatinine Clr Calc Pharmacy 47.6 ml/min; Est GFR (African American) 50.1 ml/min; Est GFR (Non-African American) 43.3 ml/min; Magnesium 2.1 mg/dl (1.7-2.4)
--- NOTE | 2023-10-04 22:06 | History & Physical Report ---
Date of Service October 04, 2023 Assessment & Plan (1) Hypotension: Plan: BP improved after initial intervention at the ER multifactorial: Cholangitis possible sepsis Hypovolemia secondary to possible brisk UGIB secondary to gallstone pancreatitis eroding on duodenum Anemia secondary to GI bleed ARF secondary to illness CHF, patient on the dry side symptomatic bradycardia status post PPM hx PVD (4.5 centimeter AAA on today's measurement) hyperlipidemia on statin Rx cognitive impairment as per records, patient mentating well past tobacco abuse Medical telemetry CS, Cefepime Flagyl IV PPI Stool CS, stool C. difficile Follow H&H, transfuse PRBC to maintain hemoglobin of at least 8 given history of vascular disease Monitor creatinine response to IVF, hold ARB for now Transfer to [facility] once bed available (Patient kindly accepted by Dr. North of [facility] Hospitalist service as per ER provider. Transfer paperwork already completed by ED provider.) DVT prophylaxis. SCDs Re: GI bleed Full code Text document was generated using [employer] voice recognition software. It may contain grammatical or spelling errors. Kindly contact undersigned for clarification of any documentation item in question. History of Present Illness Chief Complaint: Hypotension, bloody diarrhea Primary Care Provider: CHRISTIANA Montoya History obtained from patient and records. Medical history significant for CHF (EF 60 to 65%, TTE 2021), symptomatic bradycardia status post PPM, aortic valve disorder, hypertension, hyperlipidemia, cognitive impairment as per records, past tobacco abuse. Last confinement July 2021 for sepsis, ARF, metabolic encephalopathy. Four days ago, patient noted nausea, bilious emesis symptoms. No actual belly pain as per patient. Patient cared for at [facility]. Watery diarrhea later noted to be bloody since yesterday. Not sure about sick contacts. Poor appetite. Patient noted to be weak. Denies chest pain, SOB. Ciprofloxacin started by [facility] provider. Increased rectal bleeding noted today. Patient SBP noted to be 60s. Patient brought to the ER for evaluation. Hemoglobin noted to be 10.7. CT abdomen pelvis showed: 1. Multiple gallstones including a few stones within the neck of the gallbladder. There is mild pericholecystic inflammatory change. This is concerning for an acute cholecystitis. 2. There are also 2 stones within the distal common bile duct measuring 7 mm with inflammatory change surrounding the head of the pancreas and proximal duodenum consistent with an acute pancreatitis. This favors a gallstone pancreatitis. 3. Fluid-filled nondilated colon. This may correspond to the patient's history of a GI bleed. A gastroenteritis/diarrheal illness also remains in the differential diagnosis. 4. Colonic diverticulosis. No evidence for acute diverticulitis. 5. Mild periportal lymphadenopathy. This may be reactive. 6. Slight increase in size in the 4.5 cm infrarenal abdominal aortic aneurysm. 2 units PRBC administered at the ER. Patient received Cipro and Flagyl, Protonix infusion. GI specialist on-call recommended tertiary center transfer. Patient accepted by [facility] hospitalist service pending bed availability. 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[employer] Allergies Allergy/AdvReac Type Severity Reaction Status Date / Time adhesive tape Allergy Unknown SCI SHEBA Verified 10/04/23 15:05 [facility] MED LIST amoxicillin [From Augmentin] Allergy Unknown SCI SHEBA Verified 10/04/23 15:05 [facility] MED LIST clavulanic acid Allergy Unknown SCI SHEBA Verified 10/04/23 15:05 [From Augmentin] [facility] MED LIST ultrasound coupling medium Allergy Unknown SCI SHEBA Verified 10/04/23 15:05 [facility] MED LIST Home Medications Medication Instructions Recorded Confirmed Type rosuvastatin 5 mg tablet 5 mg PO HS 06/16/21 10/04/23 History irbesartan 150 mg tablet (Avapro) 150 mg PO DAILY 07/04/23 10/04/23 History ciprofloxacin HCl 500 mg tablet 500 mg PO BID 10/04/23 10/04/23 History (Cipro) Past Med/Surg History Problem List (Updated 10/05/23 @ 07:53 by Jesus Aceves MD) Hypotension Cholecystitis (Acute) Acute gallstone pancreatitis (Acute) Bright red rectal bleeding (Acute) Incontinence Dehydration with hypernatremia (Acute) Electrolyte and fluid disorder Sepsis Fever Hypernatremia COVID-19 (Acute) Acute confusion (Acute) Acute hypernatremia (Acute) BILL (acute kidney injury) (Acute) HTN (hypertension) HLD (hyperlipidemia) Pacemaker Ischemic cardiomyopathy Cognitive changes Altered mental status Hypoxia Acute metabolic encephalopathy (Acute) Hyponatremia Medical History Abdominal aortic aneurysm Cognitive changes HLD (hyperlipidemia) HTN (hypertension) Ischemic cardiomyopathy Pacemaker Social History Smoking Status: Unknown if ever smoked Tobacco Type: Cigarettes Hx Alcohol Use: No Hx Substance Use: No Preferred Language: Finnish Communication Ability: Effective Car Wash Supervisor Required: No Beliefs That Will Affect Care: None marital status: Current Living Situation: Other Current Living Situation Comment: [facility] facility Other Information That Helps Us Care for You: No Feels Safe at Home: Yes Safety Concerns: Feels Safe At This Time Assistive Devices: Denture - Upper, Denture - Lower, Glasses and Walker Assistive Devices Comment: walker PRN Review of Systems Review of Systems: As per HPI, all other systems reviewed and negative Physical Exam Physical Exam: GENERAL: Comfortable, pleasant, slightly hard of hearing, obese, no respiratory distress SKIN: Pallor , warm HEENT: Partial alopecia, pale palpebral conjunctivae, no ptosis, dry buccal mucosa NECK : Supple, no tenderness CHEST : CTA, no tenderness HEART : RRR, no obvious murmurs ABDOMEN: Some distention, nontender EXTREMITIES : Minimal LE swelling, no LE tenderness, no other conspicuous deformities noted NEUROLOGIC : Coherent, no facial asymmetry, slightly hard of hearing, no other gross focality Results & Data Results & Data Vital Signs (Past 12 Hours) Vital Signs Temp Pulse Pulse Resp BP BP Pulse Ox 10/04/23 20:33 85 10/04/23 20:06 83 19 115/73 95 10/04/23 19:46 88 16 128/74 95 10/04/23 19:34 36.8 C 80 16 129/69 95 10/04/23 19:33 37 C 74 16 159/95 H 92 10/04/23 19:27 85 16 96 10/04/23 19:17 36.9 C 85 16 128/79 96 10/04/23 19:00 83 16 121/70 96 10/04/23 18:34 81 16 111/63 97 10/04/23 18:32 79 16 118/69 95 10/04/23 18:04 80 18 119/71 95 10/04/23 17:49 83 17 109/65 96 10/04/23 17:32 37.1 C 84 19 114/70 95 10/04/23 17:27 37.1 C 10/04/23 17:16 87 18 136/70 98 10/04/23 16:32 85 10/04/23 15:02 85 18 131/76 98 10/04/23 12:46 88 20 97 10/04/23 12:44 91 H 19 118/54 L 97 10/04/23 12:43 92 H 16 118/61 97 10/04/23 12:33 89 10/04/23 12:33 36.7 C 87 20 119/78 96 10/04/23 12:25 36.9 C 83 18 119/69 96 10/04/23 12:12 97 H 20 96 10/04/23 12:12 36.7 C 94 H 20 105/53 L 96 10/04/23 12:10 36.7 C 89 20 87/49 L 96 10/04/23 12:03 92 H 10/04/23 11:51 36.7 C 95 H 20 100/70 94 O2 Del Method 10/04/23 20:33 10/04/23 20:06 Room Air 10/04/23 19:46 Room Air 10/04/23 19:34 10/04/23 19:33 10/04/23 19:27 Room Air 10/04/23 19:17 10/04/23 19:00 Room Air 10/04/23 18:34 10/04/23 18:32 10/04/23 18:04 10/04/23 17:49 10/04/23 17:32 10/04/23 17:27 10/04/23 17:16 Room Air 10/04/23 16:32 10/04/23 15:02 Room Air 10/04/23 12:46 10/04/23 12:44 10/04/23 12:43 10/04/23 12:33 10/04/23 12:33 Room Air 10/04/23 12:25 10/04/23 12:12 Room Air 10/04/23 12:12 Room Air 10/04/23 12:10 10/04/23 12:03 10/04/23 11:51 Room Air Laboratory Results Laboratory Results WBC 11.32 K/ul (4.8-10.8) H 10/04/23 11:52 RBC 3.41 M/uL (4.70-6.10) L 10/04/23 11:52 Hgb 10.4 g/dl (14.0-18.0) L 10/04/23 13:29 POC Hgb 10.5 g/dl (14.0-18.0) L 10/04/23 11:55 Hct 32.1 % (42.0-52.0) L 10/04/23 13:29 POC Hct 31 % (42-52) L 10/04/23 11:55 MCV 98.2 fL (80.0-100.0) 10/04/23 11:52 MCH 31.4 pg (25.0-34.0) 10/04/23 11:52 MCHC 31.9 g/dL (32.0-36.0) L 10/04/23 11:52 RDW Std Deviation 47.8 fL (36.4-46.3) H 10/04/23 11:52 RDW Coeff of Delilah 13.4 % (11.5-14.5) 10/04/23 11:52 Plt Count 175 K/uL (130-400) 10/04/23 11:52 MPV 10.2 fL (9.4-12.4) 10/04/23 11:52 Immature Gran % (Auto) 0.9 % 10/04/23 11:52 Neut % (Auto) 78.3 % 10/04/23 11:52 Lymph % (Auto) 13.4 % 10/04/23 11:52 Parker % (Auto) 6.7 % 10/04/23 11:52 Eos % (Auto) 0.3 % 10/04/23 11:52 Baso % (Auto) 0.4 % 10/04/23 11:52 Neut # (Auto) 8.87 K/uL (1.40-6.50) H 10/04/23 11:52 Lymph # (Auto) 1.52 K/uL (1.20-3.40) 10/04/23 11:52 Parker # (Auto) 0.76 K/uL (0.11-0.59) H 10/04/23 11:52 Eos # (Auto) 0.03 K/uL (0.00-0.50) 10/04/23 11:52 Baso # (Auto) 0.04 K/uL (0.00-0.20) 10/04/23 11:52 Immature Gran # (Auto) 0.10 K/uL (0.01-0.20) 10/04/23 11:52 PT 11.8 Seconds (9.0-12.0) 10/04/23 11:52 INR 1.1 (0.9-1.1) 10/04/23 11:52 APTT 21 Seconds (21-31) 10/04/23 11:52 PTT Ratio 0.8 10/04/23 11:52 POC Sodium 148 mmol/L (135-144) H 10/04/23 11:55 Sodium 147 mmol/L (136-145) H 10/04/23 11:52 POC Potassium 4.3 mmol/L (3.3-5.0) 10/04/23 11:55 Potassium 4.3 mmol/L (3.5-5.1) 10/04/23 11:52 POC Chloride 115 mmol/L (101-112) H 10/04/23 11:55 Chloride 115 mmol/L (98-107) H 10/04/23 11:52 Carbon Dioxide 24 mmol/L (21-32) 10/04/23 11:52 POC Total CO2 23 mmol/L (24-31) L 10/04/23 11:55 Anion Gap 8 (3-11) 10/04/23 11:52 POC Anion Gap 16.0 mmol/L (16-25) 10/04/23 11:55 POC BUN 49 mg/dl (7-18) H 10/04/23 11:55 BUN 61 mg/dl (6-23) H 10/04/23 11:52 Creatinine 1.74 mg/dl (0.6-1.4) H 10/04/23 11:52 POC Creatinine 1.9 mg/dl (0.6-1.3) H 10/04/23 11:55 Est Cr Clr Drug Dosing 41.6 ml/min 10/04/23 11:52 Est GFR ( Amer) 42.6 ml/min 10/04/23 11:52 Est GFR (Non-Af Amer) 36.7 ml/min 10/04/23 11:52 BUN/Creatinine Ratio 35.1 (10-20) H 10/04/23 11:52 Glucose 118 mg/dl (70-99(Fasting)) H 10/04/23 11:52 POC Glucose (other) 119 mg/dl (70-99) H 10/04/23 11:55 Lactate 1.7 mmol/L (0.4-2.0) 10/04/23 13:52 Calcium 8.2 mg/dl (8.6-10.3) L 10/04/23 11:52 POC Ioniz Calcium Janis 1.13 mmol/l (1.12-1.32) 10/04/23 11:55 Total Bilirubin 1.7 mg/dl (0.2-1.0) H 10/04/23 11:52 AST 74 U/L (13-39) H 10/04/23 11:52 ALT 150 U/L (7-52) H 10/04/23 11:52 Alkaline Phosphatase 180 U/L (34-104) H 10/04/23 11:52 Troponin I High Sens 10.8 pg/ml (0-20) 10/04/23 11:52 Total Protein 5.1 gm/dl (6.0-8.3) L 10/04/23 11:52 Albumin 3.0 gm/dl (3.4-5.0) L 10/04/23 11:52 Globulin 2.1 gm/dl (2.5-4.0) L 10/04/23 11:52 Albumin/Globulin Ratio 1.4 (0.9-2) 10/04/23 11:52 Lipase 140 U/L (11-82) H 10/04/23 11:52 SARS-CoV-2, RNA, NAAT NEGATIVE (NEGATIVE) 10/04/23 12:32 Blood Type O Positive 10/04/23 11:52 Blood Type Recheck O Positive 10/04/23 11:53 Antibody Screen NEGATIVE 10/04/23 11:52 Crossmatch See Detail 10/04/23 11:52 Impressions Abdomen/Pelvis CT 10/04/23 12:[address] WITHOUT CONTRAST CT DOSE: 1355.18 mGy.cm HISTORY: rectal bleed, bill, hypotensive TECHNIQUE: Multiaxial CT images of the abdomen and pelvis were performed without contrast. A dose lowering technique was utilized adhering to the principles of ALARA. COMPARISON STUDY: Abdomen and pelvis CT 05/10/2022. FINDINGS: There are few punctate calcified granulomas within the left lower lobe. The right lung base is clear. No pneumoperitoneum. No pneumatosis. No acute fractures. Pacemaker wires are noted. The heart is normal in size. The unenhanced liver, spleen, and adrenal glands are unremarkable. A few bilateral peripelvic renal cysts again noted. No hydronephrosis. Mild periportal lymphadenopathy. This may be reactive. Multiple gallstones including a few stones within the neck of the gallbladder. There is mild pericholecystic inflammatory change. This is concerning for an acute cholecystitis. There are 2 stones within the distal common bile duct measuring 7 mm on images 122 and 135. There is inflammatory change surrounding the head of the pancreas and proximal duodenum consistent with an acute pancreatitis. This favors a gallstone pancreatitis. There is mild thickening within the second portion of the duodenum which is likely reactive to the adjacent acute pancreatitis. A duodenitis can also have a similar appearance. There is a 4.5 cm infrarenal abdominal aortic aneurysm. This has slightly increased in size. No pelvic lymphadenopathy or pelvic free fluid. Normal bladder. Fluid-filled nondistended colon. Colonic diverticulosis. No evidence for acute diverticulitis. No evidence for bowel obstruction. Normal appendix. IMPRESSION: 1. Multiple gallstones including a few stones within the neck of the gallbladder. There is mild pericholecystic inflammatory change. This is concerning for an acute cholecystitis. 2. There are also 2 stones within the distal common bile duct measuring 7 mm with inflammatory change surrounding the head of the pancreas and proximal duode num consistent with an acute pancreatitis. This favors a gallstone pancreatitis. 3. Fluid-filled nondilated colon. This may correspond to the patient's history of a GI bleed. A gastroenteritis/diarrheal illness also remains in the differential diagnosis. 4. Colonic diverticulosis. No evidence for acute diverticulitis. 5. Mild periportal lymphadenopathy. This may be reactive. 6. Slight increase in size in the 4.5 cm infrarenal abdominal aortic aneurysm. 7. Additional findings as described above. ACT 112: Negative or not required by law. Electronically signed by: Benji Henley M.D. 10/04/2023 1:17 PM Diagnostic Findings Chest x-ray as per my interpretation cardiomegaly, atelectasis EKG as per my interpretation : Rate 95, NSR, LAD, LAFB, RBBB, T wave abnormalities inferior leads, l PVCs
[2023-10-04] MEDS ORDERED: PROMETHAZINE HCL 6.25 MG in SODIUM CHLORIDE 0.9% 50 ML IV PRN (22:08)
[2023-10-04] MEDS ORDERED: ACETAMINOPHEN 500 MG TAB PO PRN (22:08)
[2023-10-04] MEDS ORDERED: traMADol HCL 50 MG TABLET PO PRN (22:08)
[2023-10-04 22:15] LABS: Hematocrit (blood only) 30.6 % (42.0-52.0)
[2023-10-04] MEDS: SODIUM CHLORIDE 0.45 % 1,000 ML IV STA (23:22)
[2023-10-05 00:54] LABS: Hematocrit (blood only) 29.2 % (42.0-52.0); Hemoglobin 9.5 g/dl (14.0-18.0)
[2023-10-05] MEDS: CEFEPIME 2,000 MG in SYRINGE 0 ML IV SCH (01:36)
[2023-10-05] MEDS ORDERED: CIPROFLOXACIN / D5W 400 MG/200 ML BAG IV ONE (02:00)
[2023-10-05 05:08] LABS: Basophils # (auto) 0.06 K/uL (0.00-0.20); Basophils % (auto) 0.5 %; Eosinophils % (auto) 0.8 %; Hemoglobin 8.8 g/dl (14.0-18.0); Immature Granulocytes # (auto) 0.14 K/uL (0.01-0.20); Immature Granulocytes % (auto) 1.1 %; Lymphocytes # (auto) 1.93 K/uL (1.20-3.40); Lymphocytes % (auto) 14.9 %; Mean Corpuscular Hgb Conc 32.6 g/dL (32.0-36.0); Mean Corpuscular Volume 95.1 fL (80.0-100.0); Mean Platelet Volume 10.7 fL (9.4-12.4); Monocytes # (auto) 0.79 K/uL (0.11-0.59); Monocytes % (auto) 6.1 %; Neutrophils # (auto) 9.97 K/uL (1.40-6.50); Neutrophils % (auto) 76.6 %; Platelet Count 145 K/uL (130-400); RDW Coefficient of Variation 15.6 % (11.5-14.5); RDW Standard Deviation 54.1 fL (36.4-46.3); Red Blood Count 2.84 M/uL (4.70-6.10); White Blood Count 12.99 K/ul (4.8-10.8)
[2023-10-05 05:24] LABS: Albumin Globulin Ratio 1.5 (0.9-2); Albumin Level 2.5 gm/dl (3.4-5.0); BUN Creatinine Ratio 38.7 (10-20); Bilirubin,Total 1.2 mg/dl (0.2-1.0); Calcium 7.2 mg/dl (8.6-10.3); Creatinine Clr Calc Pharmacy 46.7 ml/min; Est GFR (Non-African American) 42.3 ml/min; Globulin 1.7 gm/dl (2.5-4.0); Total Protein 4.2 gm/dl (6.0-8.3)
[2023-10-05] MEDS: SODIUM CHLORIDE 0.45 % 1,000 ML IV ONE (05:35)
[2023-10-05] MEDS ORDERED: PANTOprazole 80 MG in DEXTROSE 5% 100 ML IV STA (06:43)
--- NOTE | 2023-10-05 08:12 | XRay Report ---
XR chest 1V portable HISTORY: renal failure COMPARISON: Chest 07/05/2021. FINDINGS: No pneumothorax. No pleural effusions. There are low lung volumes. The lungs are clear. The heart is normal in size. There is a left-sided dual-chamber pacemaker. IMPRESSION: No acute process. ACT 112: Negative or not required by law. Electronically signed by: Benji Henley M.D. 10/05/2023 8:11 AM
[2023-10-05] MEDS: PANTOprazole 40 MG in DEXTROSE 5% MINI-B 100 ML IV SCH (08:22)
[2023-10-05 10:09] LABS: Hematocrit (blood only) 27.1 % (42.0-52.0); Hemoglobin 8.8 g/dl (14.0-18.0)
[2023-10-05] MEDS ORDERED: SODIUM CHLORIDE 0.9% 250 ML IV PRN (14:59)
[2023-10-05 15:51] LABS: Hematocrit (blood only) 21.4 % (42.0-52.0); Hemoglobin 6.8 g/dl (14.0-18.0)
[2023-10-05] MEDS: SODIUM CHLORIDE 0.45 % 1,000 ML IV SCH (16:03)
[2023-10-05] MEDS: LACTATED RINGER'S 1,000 ML IV ONE (16:42)
[2023-10-05] MEDS: LACTATED RINGER'S 1,000 ML IV SCH (16:42)
--- NOTE | 2023-10-05 18:23 | Discharge Summary ---
Date of Service October 05, 2023 Admission HPI Per Admitting Provider History obtained from patient and records. Medical history significant for CHF (EF 60 to 65%, TTE 2021), symptomatic bradycardia status post PPM, aortic valve disorder, hypertension, hyperlipidem ia, cognitive impairment as per records, past tobacco abuse. Last confinement July 2021 for sepsis, ARF, metabolic encephalopathy. Four days ago, patient noted nausea, bilious emesis symptoms. No actual belly pain as per patient. [facility] Watery diarrhea later noted to be bloody since yesterday. Not sure about sick contacts. Poor appetite. Patient noted to be weak. Denies chest pain, SOB. Ciprofloxacin started by assisted provider. Increased rectal bleeding noted today. Patient SBP noted to be 60s. Patient brought to the ER for evaluation. Hemoglobin noted to be 10.7. CT abdomen pelvis showed: 1. Multiple gallstones including a few stones within the neck of the gallbladder. There is mild pericholecystic inflammatory change. This is concerning for an acute cholecystitis. 2. There are also 2 stones within the distal common bile duct measuring 7 mm with inflammatory change surrounding the head of the pancreas and proximal duodenum consistent with an acute pancreatitis. This favors a gallstone pancreatitis. 3. Fluid-filled nondilated colon. This may correspond to the patient's history of a GI bleed. A gastroenteritis/diarrheal illness also remains in the differential diagnosis. 4. Colonic diverticulosis. No evidence for acute diverticulitis. 5. Mild periportal lymphadenopathy. This may be reactive. 6. Slight increase in size in the 4.5 cm infrarenal abdominal aortic aneurysm. 2 units PRBC administered at the ER. Patient received Cipro and Flagyl, Protonix infusion. GI specialist on-call recommended tertiary center transfer. Patient accepted by [facility] hospitalist service pending bed availability. 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[employer] Admission Exam Per Admitting Provider GENERAL: Comfortable, pleasant, slightly hard of hearing, obese, no respiratory distress SKIN: Pallor , warm HEENT: Partial alopecia, pale palpebral conjunctivae, no ptosis, dry buccal mucosa NECK : Supple, no tenderness CHEST : CTA, no tenderness HEART : RRR, no obvious murmurs ABDOMEN: Some distention, nontender EXTREMITIES : Minimal LE swelling, no LE tenderness, no other conspicuous deformities noted NEUROLOGIC : Coherent, no facial asymmetry, slightly hard of hearing, no other gross focality Principal Diagnosis Acute GI bleeding with acute blood loss anemia with hypotension, acute cholecystitis with choledocholithiasis, acute biliary pancreatitis Discharge Exam General: Lying in bed, not in acute distress, on room air HEENT: EOMI, EBER, MMM Chest: Clear breath sounds bilaterally, no wheezes or crackles CVS: Regular rate and rhythm, normal heart sounds, no murmur Abdomen: Soft, non tender, not distended, normal bowel sounds Neuro: Awake, alert, oriented, conversing well, non focal Extremities: No cyanosis, clubbing or edema Discharge Data Allergies Allergy/AdvReac Type Severity Reaction Status Date / Time adhesive tape Allergy Unknown SCI SHEBA Verified 10/04/23 15:05 [facility] MED LIST amoxicillin [From Augmentin] Allergy Unknown SCI SHEBA Verified 10/04/23 15:05 [facility] MED LIST clavulanic acid Allergy Unknown SCI SHEBA Verified 10/04/23 15:05 [From Augmentin] [facility] MED LIST ultrasound coupling medium Allergy Unknown SCI SHEBA Verified 10/04/23 15:05 [facility] MED LIST Consultations 10/04/23 20:18 ED Decision to Admit Stat Ordered Studies 10/04/23 12:07 CT abd pelvis wo con Stat Laboratory Results WBC 12.99 K/ul (4.8-10.8) H 10/05/23 04:43 RBC 2.84 M/uL (4.70-6.10) L 10/05/23 04:43 Hgb 6.8 g/dl (14.0-18.0) L* 10/05/23 15:13 POC Hgb 10.5 g/dl (14.0-18.0) L 10/04/23 11:55 Hct 21.4 % (42.0-52.0) L 10/05/23 15:13 POC Hct 31 % (42-52) L 10/04/23 11:55 MCV 95.1 fL (80.0-100.0) 10/05/23 04:43 MCH 31.0 pg (25.0-34.0) 10/05/23 04:43 MCHC 32.6 g/dL (32.0-36.0) 10/05/23 04:43 RDW Std Deviation 54.1 fL (36.4-46.3) H 10/05/23 04:43 RDW Coeff of Delilah 15.6 % (11.5-14.5) H 10/05/23 04:43 Plt Count 145 K/uL (130-400) 10/05/23 04:43 MPV 10.7 fL (9.4-12.4) 10/05/23 04:43 Immature Gran % (Auto) 1.1 % 10/05/23 04:43 Neut % (Auto) 76.6 % 10/05/23 04:43 Lymph % (Auto) 14.9 % 10/05/23 04:43 [place] % (Auto) 6.1 % 10/05/23 04:43 Eos % (Auto) 0.8 % 10/05/23 04:43 Baso % (Auto) 0.5 % 10/05/23 04:43 Neut # (Auto) 9.97 K/uL (1.40-6.50) H 10/05/23 04:43 Lymph # (Auto) 1.93 K/uL (1.20-3.40) 10/05/23 04:43 [place] # (Auto) 0.79 K/uL (0.11-0.59) H 10/05/23 04:43 Eos # (Auto) 0.10 K/uL (0.00-0.50) 10/05/23 04:43 Baso # (Auto) 0.06 K/uL (0.00-0.20) 10/05/23 04:43 Immature Gran # (Auto) 0.14 K/uL (0.01-0.20) 10/05/23 04:43 PT 11.8 Seconds (9.0-12.0) 10/04/23 11:52 INR 1.1 (0.9-1.1) 10/04/23 11:52 APTT 21 Seconds (21-31) 10/04/23 11:52 PTT Ratio 0.8 10/04/23 11:52 POC Sodium 148 mmol/L (135-144) H 10/04/23 11:55 Sodium 147 mmol/L (136-145) H 10/05/23 04:43 POC Potassium 4.3 mmol/L (3.3-5.0) 10/04/23 11:55 Potassium 4.0 mmol/L (3.5-5.1) 10/05/23 04:43 POC Chloride 115 mmol/L (101-112) H 10/04/23 11:55 Chloride 120 mmol/L (98-107) H 10/05/23 04:43 Carbon Dioxide 22 mmol/L (21-32) 10/05/23 04:43 POC Total CO2 23 mmol/L (24-31) L 10/04/23 11:55 Anion Gap 5 (3-11) 10/05/23 04:43 POC Anion Gap 16.0 mmol/L (16-25) 10/04/23 11:55 POC BUN 49 mg/dl (7-18) H 10/04/23 11:55 BUN 60 mg/dl (6-23) H 10/05/23 04:43 Creatinine 1.55 mg/dl (0.6-1.4) H 10/05/23 04:43 POC Creatinine 1.9 mg/dl (0.6-1.3) H 10/04/23 11:55 Est Cr Clr Drug Dosing 46.7 ml/min 10/05/23 04:43 Est GFR ( Amer) 49.0 ml/min 10/05/23 04:43 Est GFR (Non-Af Amer) 42.3 ml/min 10/05/23 04:43 BUN/Creatinine Ratio 38.7 (10-20) H 10/05/23 04:43 Glucose 127 mg/dl (70-99(Fasting)) H 10/05/23 04:43 POC Glucose (other) 119 mg/dl (70-99) H 10/04/23 11:55 Lactate 1.2 mmol/L (0.4-2.0) 10/05/23 00:12 Calcium 7.2 mg/dl (8.6-10.3) L 10/05/23 04:43 POC Ioniz Calcium Janis 1.13 mmol/l (1.12-1.32) 10/04/23 11:55 Magnesium 2.1 mg/dl (1.7-2.4) 10/04/23 21:36 Total Bilirubin 1.2 mg/dl (0.2-1.0) H 10/05/23 04:43 AST 41 U/L (13-39) H 10/05/23 04:43 ALT 95 U/L (7-52) H 10/05/23 04:43 Alkaline Phosphatase 129 U/L (34-104) H 10/05/23 04:43 Troponin I High Sens 10.8 pg/ml (0-20) 10/04/23 11:52 Total Protein 4.2 gm/dl (6.0-8.3) L 10/05/23 04:43 Albumin 2.5 gm/dl (3.4-5.0) L 10/05/23 04:43 Globulin 1.7 gm/dl (2.5-4.0) L 10/05/23 04:43 Albumin/Globulin Ratio 1.5 (0.9-2) 10/05/23 04:43 Lipase 140 U/L (11-82) H 10/04/23 11:52 SARS-CoV-2, RNA, NAAT NEGATIVE (NEGATIVE) 10/04/23 12:32 Blood Type O Positive 10/04/23 11:52 Blood Type Recheck O Positive 10/04/23 11:53 Antibody Screen NEGATIVE 10/04/23 11:52 Crossmatch See Detail 10/04/23 11:52 Impressions Abdomen/Pelvis CT 10/04/23 12:[address] WITHOUT CONTRAST CT DOSE: 1355.18 mGy.cm HISTORY: rectal bleed, [place], hypotensive TECHNIQUE: Multiaxial CT images of the abdomen and pelvis were performed without contrast. A dose lowering technique was utilized adhering to the principles of ALARA. COMPARISON STUDY: Abdomen and pelvis CT 05/10/2022. FINDINGS: There are few punctate calcified granulomas within the left lower lobe. The right lung base is clear. No pneumoperitoneum. No pneumatosis. No acute fractures. Pacemaker wires are noted. The heart is normal in size. The unenhanced liver, spleen, and adrenal glands are unremarkable. A few bilateral peripelvic renal cysts again noted. No hydronephrosis. Mild periportal lymphadenopathy. This may be reactive. Multiple gallstones including a few stones within the neck of the gallbladder. There is mild pericholecystic inflammatory change. This is concerning for an acute cholecystitis. There are 2 stones within the distal common bile duct measuring 7 mm on images 122 and 135. There is inflammatory change surrounding the head of the pancreas and proximal duodenum consistent with an acute pancreatitis. This favors a gallstone pancreatitis. There is mild thickening within the second portion of the duodenum which is likely reactive to the adjacent acute pancreatitis. A duodenitis can also have a similar appearance. There is a 4.5 cm infrarenal abdominal aortic aneurysm. This has slightly increased in size. No pelvic lymphadenopathy or pelvic free fluid. Normal bladder. Fluid-filled nondistended colon. Colonic diverticulosis. No evidence for acute diverticulitis. No evidence for bowel obstruction. Normal appendix. IMPRESSION: 1. Multiple gallstones including a few stones within the neck of the gallbladder. There is mild pericholecystic inflammatory change. This is concerning for an acute cholecystitis. 2. There are also 2 stones within the distal common bile duct measuring 7 mm with inflammatory change surrounding the head of the pancreas and proximal duodenum consistent with an acute pancreatitis. This favors a gallstone pancreatitis. 3. Fluid-filled nondilated colon. This may correspond to the patient's history of a GI bleed. A gastroenteritis/diarrheal illness also remains in the differential diagnosis. 4. Colonic diverticulosis. No evidence for acute diverticulitis. 5. Mild periportal lymphadenopathy. This may be reactive. 6. Slight increase in size in the 4.5 cm infrarenal abdominal aortic aneurysm. 7. Additional findings as described above. ACT 112: Negative or not required by law. Electronically signed by: Benji Henley M.D. 10/04/2023 1:17 PM Chest X-Ray 10/04/23 20:38 XR chest 1V portable HISTORY: renal failure COMPARISON: Chest 07/05/2021. FINDINGS: No pneumothorax. No pleural effusions. There are low lung volumes. The lungs are clear. The heart is normal in size. There is a left-sided dual-chamber pacemaker. IMPRESSION: No acute process. ACT 112: Negative or not required by law. Electronically signed by: Benji Henley M.D. 10/05/2023 8:11 AM Hospital Course (1) Acute GI bleeding: (2) Acute blood loss anemia: (3) Acute cholecystitis due to biliary calculus: (4) Acute gallstone pancreatitis: (5) Hypotension: (6) Choledocholithiasis with acute cholecystitis: Plan Patient was admitted awaiting bed availability at [facility] for transfer for further medical management. He was stable this morning when I saw him. He did complain of ongoing rectal bleeding however his vitals were stable and he was clinically stable. However later in the day, I was notified by RN that he was cool, clammy, hypotensive and tachycardic. Given concern for hemorrhagic shock, I ordered monitor 1 L stat fluid bolus, ordered stat H&H, type and cross and transfusion orders. I called blood bank to inquire about bed availability. I immediately went to evaluate him at bedside. He was in Trendelenburg position and fluid bolus was running. He stated he is still fee ls cold clammy and he does not feel good and that he feels like dying. His blood pressure was in 90s and heart rate in 100s. Ordered 2U PRBC transfusions. Stat H&H resulted into hemoglobin of 6.8, down from 8.8 this morning. Patient was not deemed appropriate for ground transportation And requested for [facility] given his critical medical condition. I called [facility] transfer center and spoke to licensed customs broker and GI physician at [facility]. Patient was accepted by Dr Friend to be admitted to ICU for further work up and management of his multiple medical conditions, his ongoing GI bleeding to be the most pressing issue. He will be continued on IV fluids, IV PPI, IV antibiotics, and PRBC transfusion during the transportation. He had BP 118/58, heart rate 108, RR 20, afebrile, saturating well on room air and awake alert oriented at time of transfer. More than 90 minutes was spent taking care of this patient including more than 30 minutes of critical care time managing his hemodynamic instability due to hemorrhagic shock from acute blood loss anemia due to GI bleeding on top of his other medical conditions. Total Time Total Time Spent Total Time Spent (In Minutes): 90 Discharge Plan Discharge Items Patient Disposition: Transfer Acute Care Hospital Reason For Visit: ANEMIA, GI BLEED, CHOLECYSTITIS Discharge Diagnosis: Acute GI bleeding with acute blood loss anemia with hypotension, acute cholecystitis with choledocholithiasis, acute biliary pancreatitis Activity: Per Instructions section Non-emergency contact: Primary Care Provider Call non-emergency contact if: you have any medication questions and your symptoms worsen Follow-up/Referrals: Sheba VILLEDA [Primary Care Provider] - Diet: Other - See Diet Comment Addtl Attending Provider Instructions: you are being emergently transferred to [facility] for further management of your acute medical conditions including GI bleeding, acute cholecystitis with choledocholithiasis, acute pancreatitis, acute blood loss anemia Pending Studies at Discharge: No Stand-Alone Forms: My [facility] Skilled Items Patient informed of condition?: Yes DNR: No Discharge Level of Care: Acute rehab Communicable Disease: No Discharge Prognosis: Stable Lines: Peripheral IV Urinary Catheter: No Medications and DC Order Prescriptions: Continued irbesartan [Avapro] 150 mg tablet 150 mg PO DAILY rosuvastatin 5 mg Tablet 5 mg PO HS ciprofloxacin HCl [Cipro] 500 mg Tablet 500 mg PO BID Rx Instructions: STARTED 10/03/23 FOR 7 DAYS Discharge Orders: Discharge Order (Routine); Ordered 10/05/23 Ordered By: Aroldo Skinner Admission Data Admit Date/Time: 10/04/23 22:08 Attending Provider: Aroldo Skinner Admit Provider: Jesus Aceves Primary Care Provider: Sheba VILLEDA Other Providers: Jesus Aceves
[2023-10-05] MEDS ORDERED: ROSUVASTATIN CALCIUM 5 MG TAB PO SCH (21:00)
== END 2023-10-05 18:21 | disposition short-term general hospital (02) | DRG 377 ==
LOC: ED 11:39 → EDINP 22:08

== ENCOUNTER 2024-01-19 10:33 | Observation (INO) ==
--- NOTE | 2024-01-19 11:10 | Emergency Department Note ---
Impression & Plan Sepsis, Choledocholithiasis, Transaminitis, Elevated bilirubin ED Provider Note NAME: SAM [id number] KACIE AGE: 78 SEX: M : 1945 ARRIVES VIA: Ambulance INFORMANT: Patient ED PROVIDER(S): Randall Bianchi DO CHIEF COMPLAINT: Altered, febrile HPI: Patient is a 78-year-old male who presents to the ER with a past medical history of GI bleeding, sepsis, hyponatremia, hypertension, ischemic cardiomyopathy who presents to the ER for fever and elevated heart rate. Guards were present at bedside note that normally he is oriented but has not been today. Patient denies any head pain or neck pain. No chest pain or shortness of breath. No belly pain. No urinary symptoms. Denies any dysuria, urgency, or frequency. No other exacerbating or remitting factors. Patient has been incontinent today per [facility] staff. ADDITIONAL HISTORY OBTAINED: Per HPI Chronic Medical/Social Conditions Affecting Care: Per HPI PAST MEDICAL HISTORY:See Below PAST SURGICAL HISTORY:See Below FAMILY HISTORY:See Below SOCIAL HISTORY:See Below HOME MEDICATIONS:See Below ALLERGIES:See Below VITALS:See Below PHYSICAL EXAMINATION: GENERAL: Sitting up in bed, alert, ill appearing, disheveled EYE EXAM: normal conjunctiva. OROPHARYNX: mucous membranes are moist NECK: supple, no nuchal rigidity, no adenopathy, non-tender LUNGS: Clear to auscultation. Normal chest wall mechanics HEART: no murmurs, S1 normal and S2 normal ABDOMEN: abdomen soft, non-tender, normo-active bowel sounds, no masses, no rebound or guarding. BACK: Back is symmetrical on inspection and there is no deformity, no midline tenderness, no CVA tenderness. SKIN: no rashes and no bruising UPPER EXTREMITIES: upper extremities are grossly normal. LOWER EXTREMITIES: No pitting edema. NEURO EXAM: Oriented to person but not year moving all extremities nonfocal. MEDICAL DECISION MAKING: Patient is a 78-year-old male who presents to the ER for fever, tachycardia. IV was established blood work is obtained. Labs show a leukocytosis of 17,000. No significant anemia. BMP was unremarkable. Lactate at 1.9. T. bili at 6.4. Transaminitis of 300. Troponin mildly elevated at 42 likely secondary to demand ischemia from the sepsis. He was hypotensive with systolics in the 90s. This responded to IV fluids. Pro-Mirza was significantly elevated at 10. UA does not suggest infection. Viral panel was negative. CT abdomen pelvis suggest choledocholithiasis with ductal dilatation. Ciro Yadav does not have ERCP coverage today and consequently reviewed external records and patient was previously on 10/10/2023 down at [facility] for GI bleed and possible cholecystitis. Recontacted [facility] and patient was accepted by Dr. Asaf Castellanos to a bed [id number]. Patient was given Rocephin and Flagyl as well as a total of 3 L of IV fluids while in the ER. Discussed with our EMS and we have no ability to to send via ALS at this time due to staffing shortages. Discussed with her hospitalist for admission as early as transportation would be at the earliest 7 AM tomorrow morning. Consults/Care Managements Discussions: Per [facility] Triage Nursing notes reviewed. Limited review of prior medical records performed Vital Signs: reviewed and remarkable for no significant abnormalities Differential diagnosis: Differential diagnosis includes etiologies such as sepsis, UTI, pneumonia, metabolic, electrolyte abnormalities, cardiac sources, intracerebral event, toxicologic, neurological, as well as others were entertained. ER treatment provided: See below Diagnostics interpreted by me include EKG and cardiac monitoring as listed below: -Cardiac Monitoring: An order was placed for continuous cardiac monitoring. The monitor shows a rate of 101 with sinus rhythm. -ECG: Sinus rhythm rate of 102 Left axis Right bundle branch block T wave inversion in septal leads QTc 482 No significant change -Laboratory studies:Interpreted by me as stated above in MDM and shown below. Imaging studies: Xrays: As interpreted by me:none CTs show: CT abdomen pelvis per my preliminary read shows stones in the gallbladder CT abdomen pelvis per radiology as described above Procedures:none Critical Care: I have personally spent 35 minutes of critical care time in the direct management of this patient. This includes bedside care, interpretation of diagnostic studies, and testing, discussion with consultants, patient, and family members, and other required patient management activities. This 35 minutes is in excess of all separately billable procedures. Past Med/Surg History Problem List (Updated 01/19/24 @ 17:16 by Randall Bianchi DO) Elevated bilirubin (Acute) Transaminitis (Acute) Choledocholithiasis (Acute) Sepsis (Acute) Choledocholithiasis with acute cholecystitis Acute cholecystitis due to biliary calculus Acute blood loss anemia Acute GI bleeding Cholecystitis (Acute) Acute gallstone pancreatitis (Acute) Bright red rectal bleeding (Acute) Incontinence Dehydration with hypernatremia (Acute) Electrolyte and fluid disorder Sepsis Fever Hypernatremia COVID-19 (Acute) Acute confusion (Acute) Acute hypernatremia (Acute) BILL (acute kidney injury) (Acute) HTN (hypertension) HLD (hyperlipidemia) Pacemaker Ischemic cardiomyopathy Cognitive changes Altered mental status Hypoxia Acute metabolic encephalopathy (Acute) Hyponatremia Medical History Abdominal aortic aneurysm Cognitive changes HLD (hyperlipidemia) HTN (hypertension) Ischemic cardiomyopathy Pacemaker Social History Smoking Status: Former smoker Tobacco Type: Cigarettes Hx Alcohol Use: No Hx Substance Use: No Preferred Language: Croatian Communication Ability: Effective C Iron Worker Required: No Beliefs That Will Affect Care: None marital status: Current Living Situation: Other Current Living Situation Comment: [facility] Feels Safe at Home: Yes Assistive Devices: Denture - Upper, Denture - Lower, Glasses and Walker Allergies Allergies Allergy/AdvReac Type Severity Reaction Status Date / Time adhesive tape Allergy Unknown SCI SHEBA Verified 10/04/23 15:05 [facility] MED LIST amoxicillin [From Augmentin] Allergy Unknown SCI SHEBA Verified 10/04/23 15:05 [facility] MED LIST clavulanic acid Allergy Unknown SCI SHEBA Verified 10/04/23 15:05 [From Augmentin] [facility] MED LIST ultrasound coupling medium Allergy Unknown SCI SHEBA Verified 10/04/23 15:05 [facility] MED LIST Home Meds Home Medications Medication Instructions Recorded Confirmed rosuvastatin 5 mg tablet 5 mg PO HS 06/16/21 10/04/23 irbesartan 150 mg tablet (Avapro) 150 mg PO DAILY 07/04/23 10/04/23 ciprofloxacin HCl 500 mg tablet 500 mg PO BID 10/04/23 10/04/23 (Cipro) Results & Data (ED) Vital Signs Vital Signs - 24 hr 01/19/24 10:46 01/19/24 10:48 01/19/24 10:57 Temperature Temperature Source Pulse Rate 101 H 98 H Pulse Rate [Apical] Pulse Rate from SpO2 Sensor 101 H 99 H Pulse Strength [Apical] Respiratory Rate 20 25 H Respiratory Effort / Characteristics Respiratory Depth Respiratory Pattern Blood Pressure 146/85 H Blood Pressure [Right Arm] Blood Pressure Mean 95 Blood Pressure Mean [Right Arm] Pulse Oximetry 92 92 Oxygen Delivery Method Room Air Room Air Sepsis Recent Fever Within 48 Hours Sepsis New/Unexplained Change in Mental Status Sepsis Action Taken by Nursing 01/19/24 11:00 01/19/24 11:15 01/19/24 11:24 Temperature Temperature Source Pulse Rate 95 H Pulse Rate [Apical] Pulse Rate from SpO2 Sensor 95 H Pulse Strength [Apical] Respiratory Rate 25 H Respiratory Effort / Characteristics Respiratory Depth Respiratory Pattern Blood Pressure 113/72 134/73 Blood Pressure [Right Arm] Blood Pressure Mean 98 96 Blood Pressure Mean [Right Arm] Pulse Oximetry 92 Oxygen Delivery Method Room Air Sepsis Recent Fever Within 48 Hours Sepsis New/Unexplained Change in Mental Status Sepsis Action Taken by Nursing 01/19/24 11:27 01/19/24 11:30 01/19/24 11:36 Temperature 38.1 C H Temperature Source Oral Pulse Rate 102 H 104 H Pulse Rate [Apical] Pulse Rate from SpO2 Sensor 103 H Pulse Strength [Apical] Respiratory Rate 30 H 26 H Respiratory Effort / Characteristics Non-Labored Spontaneous Respiratory Depth Normal Respiratory Pattern Regular Blood Pressure 143/74 H 143/74 H Blood Pressure [Right Arm] Blood Pressure Mean 97 95 Blood Pressure Mean [Right Arm] Pulse Oximetry 92 93 Oxygen Delivery Method Room Air Room Air Sepsis Recent Fever Within 48 Hours Yes Sepsis New/Unexplained Change in Mental Status Yes Sepsis Action Taken by Nursing Physician Notified 01/19/24 11:45 01/19/24 11:45 01/19/24 12:00 Temperature Temperature Source Pulse Rate 101 H Pulse Rate [Apical] Pulse Rate from SpO2 Sensor 100 H Pulse Strength [Apical] Respiratory Rate 25 H Respiratory Effort / Characteristics Respiratory Depth Respiratory Pattern Blood Pressure 140/70 143/71 H Blood Pressure [Right Arm] Blood Pressure Mean 85 88 Blood Pressure Mean [Right Arm] Pulse Oximetry 93 Oxygen Delivery Method Room Air Sepsis Recent Fever Within 48 Hours Sepsis New/Unexplained Change in Mental Status Sepsis Action Taken by Nursing 01/19/24 12:00 01/19/24 12:07 01/19/24 12:21 Temperature Temperature Source Pulse Rate 102 H 97 H 100 H Pulse Rate [Apical] Pulse Rate from SpO2 Sensor 102 H 100 H Pulse Strength [Apical] Respiratory Rate 27 H 24 Respiratory Effort / Characteristics Respiratory Depth Respiratory Pattern Blood Pressure Blood Pressure [Right Arm] Blood Pressure Mean Blood Pressure Mean [Right Arm] Pulse Oximetry 93 94 Oxygen Delivery Method Room Air Room Air Sepsis Recent Fever Within 48 Hours Sepsis New/Unexplained Change in Mental Status Sepsis Action Taken by Nursing 01/19/24 12:24 01/19/24 12:30 01/19/24 12:36 Temperature Temperature Source Pulse Rate 97 H 98 H Pulse Rate [Apical] Pulse Rate from SpO2 Sensor 97 H 97 H Pulse Strength [Apical] Respiratory Rate 22 23 Respiratory Effort / Characteristics Respiratory Depth Respiratory Pattern Blood Pressure 129/70 Blood Pressure [Right Arm] Blood Pressure Mean 91 Blood Pressure Mean [Right Arm] Pulse Oximetry 94 94 Oxygen Delivery Method Room Air Room Air Sepsis Recent Fever Within 48 Hours Sepsis New/Unexplained Change in Mental Status Sepsis Action Taken by Nursing 01/19/24 13:00 01/19/24 13:00 01/19/24 13:15 Temperature Temperature Source Pulse Rate 102 H 100 H Pulse Rate [Apical] Pulse Rate from SpO2 Sensor 102 H 99 H Pulse Strength [Apical] Respiratory Rate 24 27 H Respiratory Effort / Characteristics Respiratory Depth Respiratory Pattern Blood Pressure 134/84 Blood Pressure [Right Arm] Blood Pressure Mean 98 Blood Pressure Mean [Right Arm] Pulse Oximetry 93 90 Oxygen Delivery Method Room Air Room Air Sepsis Recent Fever Within 48 Hours Sepsis New/Unexplained Change in Mental Status Sepsis Action Taken by Nursing 01/19/24 13:15 01/19/24 13:18 01/19/24 13:30 Temperature Temperature Source Pulse Rate 101 H Pulse Rate [Apical] Pulse Rate from SpO2 Sensor 102 H Pulse Strength [Apical] Respiratory Rate 24 Respiratory Effort / Characteristics Respiratory Depth Respiratory Pattern Blood Pressure 137/70 125/71 Blood Pressure [Right Arm] Blood Pressure Mean 94 84 Blood Pressure Mean [Right Arm] Pulse Oximetry 95 Oxygen Delivery Method Room Air Sepsis Recent Fever Within 48 Hours Sepsis New/Unexplained Change in Mental Status Sepsis Action Taken by Nursing 01/19/24 13:42 01/19/24 13:45 01/19/24 13:51 Temperature Temperature Source Pulse Rate 94 H 94 H Pulse Rate [Apical] Pulse Rate from SpO2 Sensor 94 H 93 H Pulse Strength [Apical] Respiratory Rate 25 H 23 Respiratory Effort / Characteristics Respiratory Depth Respiratory Pattern Blood Pressure 113/71 Blood Pressure [Right Arm] Blood Pressure Mean 85 Blood Pressure Mean [Right Arm] Pulse Oximetry 93 Oxygen Delivery Method Room Air Sepsis Recent Fever Within 48 Hours Sepsis New/Unexplained Change in Mental Status Sepsis Action Taken by Nursing 01/19/24 14:00 01/19/24 14:00 01/19/24 14:18 Temperature Temperature Source Pulse Rate 96 H 96 H Pulse Rate [Apical] Pulse Rate from SpO2 Sensor 96 H 96 H Pulse Strength [Apical] Respiratory Rate 23 21 Respiratory Effort / Characteristics Respiratory Depth Respiratory Pattern Blood Pressure 137/81 Blood Pressure [Right Arm] Blood Pressure Mean 95 Blood Pressure Mean [Right Arm] Pulse Oximetry 95 95 Oxygen Delivery Method Room Air Room Air Sepsis Recent Fever Within 48 Hours Sepsis New/Unexplained Change in Mental Status Sepsis Action Taken by Nursing 01/19/24 14:24 01/19/24 14:30 01/19/24 14:45 Temperature Temperature Source Pulse Rate 88 Pulse Rate [Apical] Pulse Rate from SpO2 Sensor 89 Pulse Strength [Apical] Respiratory Rate 20 Respiratory Effort / Characteristics Respiratory Depth Respiratory Pattern Blood Pressure 105/60 101/59 L Blood Pressure [Right Arm] Blood Pressure Mean 72 79 Blood Pressure Mean [Right Arm] Pulse Oximetry 94 Oxygen Delivery Method Room Air Sepsis Recent Fever Within 48 Hours Sepsis New/Unexplained Change in Mental Status Sepsis Action Taken by Nursing 01/19/24 14:45 01/19/24 14:49 01/19/24 15:38 Temperature 37.5 C 37.5 C Temperature Source Oral Oral Pulse Rate 84 Pulse Rate [Apical] 80 Pulse Rate from SpO2 Sensor 83 Pulse Strength [Apical] Normal Respiratory Rate 22 19 Respiratory Effort / Characteristics Non-Labored Spontaneous Respiratory Depth Normal Respiratory Pattern Regular Blood Pressure Blood Pressure [Right Arm] 102/63 Blood Pressure Mean Blood Pressure Mean [Right Arm] 76 Pulse Oximetry 92 99 Oxygen Delivery Method Room Air Room Air Sepsis Recent Fever Within 48 Hours Sepsis New/Unexplained Change in Mental Status Sepsis Action Taken by Nursing 01/19/24 16:06 Temperature Temperature Source Pulse Rate 79 Pulse Rate [Apical] Pulse Rate from SpO2 Sensor Pulse Strength [Apical] Respiratory Rate Respiratory Effort / Characteristics Respiratory Depth Respiratory Pattern Blood Pressure Blood Pressure [Right Arm] Blood Pressure Mean Blood Pressure Mean [Right Arm] Pulse Oximetry Oxygen Delivery Method Sepsis Recent Fever Within 48 Hours Sepsis New/Unexplained Change in Mental Status Sepsis Action Taken by Nursing Laboratory Data 01/19/24 10:56 01/19/24 10:56 Lab Results 01/19/24 01/19/24 01/19/24 Range/Units 10:56 11:06 11:11 WBC 17.71 H (4.8-10.8) K/ul RBC 5.10 (4.70-6.10) M/uL Hgb 14.8 (14.0-18.0) g/dl POC Hgb 16.0 (14.0-18.0) g/dl Hct 46.4 (42.0-52.0) % POC Hct 47 (42-52) % MCV 91.0 (80.0-100.0) fL MCH 29.0 (25.0-34.0) pg MCHC 31.9 L (32.0-36.0) g/dL RDW Std Deviation 47.6 H (36.4-46.3) fL RDW Coeff of Delilah 14.1 (11.5-14.5) % Plt Count 214 (130-400) K/uL MPV 9.9 (9.4-12.4) fL Immature Gran % (Auto) 0.4 % Neut % (Auto) 89.0 % Lymph % (Auto) 2.0 % Door % (Auto) 7.3 % Eos % (Auto) 1.1 % Baso % (Auto) 0.2 % Neut # (Auto) 15.75 H (1.40-6.50) K/uL Lymph # (Auto) 0.36 L (1.20-3.40) K/uL Door # (Auto) 1.29 H (0.11-0.59) K/uL Eos # (Auto) 0.20 (0.00-0.50) K/uL Baso # (Auto) 0.04 (0.00-0.20) K/uL Immature Gran # (Auto) 0.07 (0.01-0.20) K/uL POC Sodium 136 (135-144) mmol/L Sodium 135 L (136-145) mmol/L POC Potassium 3.7 (3.3-5.0) mmol/L Potassium 3.8 (3.5-5.1) mmol/L POC Chloride 101 (101-112) mmol/L Chloride 100 (98-107) mmol/L Carbon Dioxide 23 (21-32) mmol/L POC Total CO2 23 L (24-31) mmol/L Anion Gap 12 H (3-11) POC Anion Gap 17.0 (16-25) mmol/L POC BUN 17 (7-18) mg/dl BUN 17 (6-23) mg/dl Creatinine 1.48 H (0.6-1.4) mg/dl POC Creatinine 1.4 H (0.6-1.3) mg/dl Est Cr Clr Drug Dosing 46.6 ml/min Est GFR ( Amer) 51.4 ml/min Est GFR (Non-Af Amer) 44.4 ml/min BUN/Creatinine Ratio 11.5 (10-20) Glucose 144 H (70-99(Fasting)) mg/dl POC Glucose (other) 144 H (70-99) mg/dl Lactate 1.9 (0.4-2.0) mmol/L Calcium 8.9 (8.6-10.3) mg/dl POC Ioniz Calcium Janis 1.05 L (1.12-1.32) mmol/l Magnesium 1.8 (1.7-2.4) mg/dl Total Bilirubin 6.4 H (0.2-1.0) mg/dl Direct Bilirubin 4.4 H (0-0.2) mg/dl AST 318 H (13-39) U/L ALT 264 H (7-52) U/L Alkaline Phosphatase 507 H (34-104) U/L Troponin I High Sens 46.1 H (0-20) pg/ml Total Protein 6.9 (6.0-8.3) gm/dl Albumin 4.1 (3.4-5.0) gm/dl Lipase 12 (11-82) U/L Procalcitonin 10.20 H (0-0.5) ng/ml Urine Color Dark Yellow Urine Appearance Clear (Clear) Urine pH 6.0 (4.5-7.5) Ur Specific Westfall 1.020 (1.000-1.030) Urine Protein 1+ H (Negative) Urine Glucose (UA) Negative (Negative) Urine Ketones 1+ H (Negative) Urine Blood Negative (Negative) Urine Nitrite Positive A (Negative) Urine Bilirubin 3+ H (Negative) Urine Urobilinogen Positive H (Negative) Ur Leukocyte Esterase 1+ H (Negative) Urine WBC (Auto) 0-5 (0-5) /hpf Urine RBC (Auto) 0-2 (0-2) /hpf U Hyaline Cast (Auto) 0-2 (0-2) /lpf U Epithel Cells (Auto) 0-2 (0-2) /hpf Urine Bacteria (Auto) None Seen (None Seen) Adenovirus (PCR) (NotDetected) B. pertussis DNA (PCR) (NotDetected) B.parapertussis DNA PCR (NotDetected) C. pneumoniae DNA (PCR) (NotDetected) Coronavirus OC43 (PCR) (NotDetected) Coronavirus HKU1 (PCR) (NotDetected) Coronavirus 229E (PCR) (NotDetected) SARS-CoV-2 (PCR) (NotDetected) Coronavirus NL63 (PCR) (NotDetected) Human Metapneumovir PCR (NotDetected) Influenza Type A (PCR) (NotDetected) Influenza Type B (PCR) (NotDetected) M. pneumoniae (PCR) (NotDetected) Parainfluenza 1 (PCR) (NotDetected) Parainfluenza 2 (PCR) (NotDetected) Parainfluenza 3 (PCR) (NotDetected) Parainfluenza 4 (PCR) (NotDetected) RSV (PCR) (NotDetected) Entero/Rhino (PCR) (NotDetected) 01/19/24 01/19/24 Range/Units 11:12 13:19 WBC (4.8-10.8) K/ul RBC (4.70-6.10) M/uL Hgb (14.0-18.0) g/dl POC Hgb (14.0-18.0) g/dl Hct (42.0-52.0) % POC Hct (42-52) % MCV (80.0-100.0) fL MCH (25.0-34.0) pg MCHC (32.0-36.0) g/dL RDW Std Deviation (36.4-46.3) fL RDW Coeff of Delilah (11.5-14.5) % Plt Count (130-400) K/uL MPV (9.4-12.4) fL Immature Gran % (Auto) % Neut % (Auto) % Lymph % (Auto) % Door % (Auto) % Eos % (Auto) % Baso % (Auto) % Neut # (Auto) (1.40-6.50) K/uL Lymph # (Auto) (1.20-3.40) K/uL Door # (Auto) (0.11-0.59) K/uL Eos # (Auto) (0.00-0.50) K/uL Baso # (Auto) (0.00-0.20) K/uL Immature Gran # (Auto) (0.01-0.20) K/uL POC Sodium (135-144) mmol/L Sodium (136-145) mmol/L POC Potassium (3.3-5.0) mmol/L Potassium (3.5-5.1) mmol/L POC Chloride (101-112) mmol/L Chloride (98-107) mmol/L Carbon Dioxide (21-32) mmol/L POC Total CO2 (24-31) mmol/L Anion Gap (3-11) POC Anion Gap (16-25) mmol/L POC BUN (7-18) mg/dl BUN (6-23) mg/dl Creatinine (0.6-1.4) mg/dl POC Creatinine (0.6-1.3) mg/dl Est Cr Clr Drug Dosing ml/min Est GFR ( Amer) ml/min Est GFR (Non-Af Amer) ml/min BUN/Creatinine Ratio (10-20) Glucose (70-99(Fasting)) mg/dl POC Glucose (other) (70-99) mg/dl Lactate (0.4-2.0) mmol/L Calcium (8.6-10.3) mg/dl POC Ioniz Calcium Janis (1.12-1.32) mmol/l Magnesium (1.7-2.4) mg/dl Total Bilirubin (0.2-1.0) mg/dl Direct Bilirubin (0-0.2) mg/dl AST (13-39) U/L ALT (7-52) U/L Alkaline Phosphatase (34-104) U/L Troponin I High Sens 42.3 H (0-20) pg/ml Total Protein (6.0-8.3) gm/dl Albumin (3.4-5.0) gm/dl Lipase (11-82) U/L Procalcitonin (0-0.5) ng/ml Urine Color Urine Appearance (Clear) Urine pH (4.5-7.5) Ur Specific Westfall (1.000-1.030) Urine Protein (Negative) Urine Glucose (UA) (Negative) Urine Ketones (Negative) Urine Blood (Negative) Urine Nitrite (Negative) Urine Bilirubin (Negative) Urine Urobilinogen (Negative) Ur Leukocyte Esterase (Negative) Urine WBC (Auto) (0-5) /hpf Urine RBC (Auto) (0-2) /hpf U Hyaline Cast (Auto) (0-2) /lpf U Epithel Cells (Auto) (0-2) /hpf Urine Bacteria (Auto) (None Seen) Adenovirus (PCR) Not Detected (NotDetected) B. pertussis DNA (PCR) Not Detected (NotDetected) B.parapertussis DNA PCR Not Detected (NotDetected) C. pneumoniae DNA (PCR) Not Detected (NotDetected) Coronavirus OC43 (PCR) Not Detected (NotDetected) Coronavirus HKU1 (PCR) Not Detected (NotDetected) Coronavirus 229E (PCR) Not Detected (NotDetected) SARS-CoV-2 (PCR) Not Detected (NotDetected) Coronavirus NL63 (PCR) Not Detected (NotDetected) Human Metapneumovir PCR Not Detected (NotDetected) Influenza Type A (PCR) Not Detected (NotDetected) Influenza Type B (PCR) Not Detected (NotDetected) M. pneumoniae (PCR) Not Detected (NotDetected) Parainfluenza 1 (PCR) Not Detected (NotDetected) Parainfluenza 2 (PCR) Not Detected (NotDetected) Parainfluenza 3 (PCR) Not Detected (NotDetected) Parainfluenza 4 (PCR) Not Detected (NotDetected) RSV (PCR) Not Detected (NotDetected) Entero/Rhino (PCR) Not Detected (NotDetected) Administered Medications Discontinued Medications Acetaminophen (Acetaminophen 325 Mg Tab) 650 mg PO NOW STA Stop: 01/19/24 13:07 Last Admin: 01/19/24 14:06 Dose: Not Given Documented By: BMK Sodium Chloride (Nss) 1,000 mls @ 999 mls/hr IV .Q1H1M ONE Stop: 01/19/24 12:07 Last Infusion: 01/19/24 13:39 Dose: Infused Documented By: Admin: 01/19/24 11:21 Dose: 999 mls/hr Documented By: DINORAH Ceftriaxone Sodium (Rocephin) 2,000 mg in 50 mls @ 100 mls/hr IV NOW STA Stop: 01/19/24 11:37 Last Infusion: 01/19/24 12:10 Dose: Infused Documented By: Admin: 01/19/24 11:21 Dose: 100 mls/hr Documented By: DINORAH Sodium Chloride (Nss) 1,000 mls @ 999 mls/hr IV .Q1H1M ONE Stop: 01/19/24 12:09 Last Infusion: 01/19/24 13:39 Dose: Infused Documented By: Admin: 01/19/24 11:21 Dose: 999 mls/hr Documented By: DINORAH Metronidazole (Flagyl) 500 mg in 100 mls @ 100 mls/hr IV NOW STA; Protocol Stop: 01/19/24 13:39 Last Infusion: 01/19/24 14:46 Dose: Infused Documented By: Admin: 01/19/24 13:38 Dose: 100 mls/hr Documented By: EDITH Acetaminophen (Ofirmev) 1,000 mg in 100 mls @ 400 mls/hr IV NOW STA Stop: 01/19/24 14:05 Last Infusion: 01/19/24 14:46 Dose: Infused Documented By: Admin: 01/19/24 14:09 Dose: 400 mls/hr Documented By: EDITH Sodium Chloride (Nss) 1,000 mls @ 999 mls/hr IV .Q1H1M ONE Stop: 01/19/24 16:21 Last Infusion: 01/19/24 16:49 Dose: Infused Documented By: Admin: 01/19/24 15:37 Dose: 999 mls/hr Documented By: MARY Ioversol (Optiray 320 100ml) 94 ml IV ONCE ONE Stop: 01/19/24 12:48 Last Admin: 01/19/24 12:47 Dose: 94 ml Documented By: BRIGITTE Imaging Data Radiologist's Impression: Chest X-Ray 01/19/24 11:07 XR chest 1V portable CLINICAL HISTORY: Sepsis TECHNIQUE: Single frontal radiograph of the chest was obtained. Comparison: Comparison is made to chest radiograph 10/04/2023 FINDINGS: No lines and tubes are seen. Cardiomegaly is noted. The aortic arch is calcified. Lungs are underinflated but clear. No evidence of pleural effusion or pneumothorax. IMPRESSION: No acute abnormalities and in particular no radiographic evidence of pneumonia. ACT 112: Negative or not required by law. Electronically signed by: Familia Orantes M.D. 01/19/2024 12:[address] 01/19/24 11:08 CT head/brain wo con CLINICAL HISTORY: ams Technique: Contiguous axial CT images of the head were acquired from the base of the skull to the vertex without intravenous contrast administration. Images were viewed in brain, subdural and bone windows. Automated dose lowering techniques and/or adjustment according to patient size were utilized for this exam. Comparison: Comparison is made to CT head 05/20/2022 Findings: Areas of decreased attenuation are present in the periventricular and subcortical white matter bilaterally consistent with small vessel ischemic disease. Generalized cerebral atrophy with commensurate enlargement of the ventricles, sulci, and cisterns is also present. There is no acute intracranial hemorrhage or evidence of acute territorial infarction. No shift of the midline structures, mass effect, or extra-axial abnormalities are shown. Atherosclerotic calcifications are present in the intracranial segments of the internal carotid arteries. Imaged portions of the paranasal sinuses and mastoid air cells are clear. The orbits appear normal. There are no acute fractures of the calvaria or scalp swelling. Impression: No acute intracranial hemorrhage, no evidence of acute territorial infarction or other acute intracranial disease process. ACT 112: Negative or not required by law. Electronically signed by: Familia Orantes M.D. 01/19/2024 12:22 PM Abdomen/Pelvis CT 01/19/24 12:38 CT abd pelvis IV con only CLINICAL HISTORY: sepsis geraldine lfts and bili TECHNIQUE: Helical axial images of the abdomen and pelvis were obtained and displayed. Automated dose lowering techniques and/or adjustment according to patient size were utilized for this exam. This exam was performed with intravenous contrast. CT DOSE: 1560.36 mGy.cm COMPARISON: Comparison is made to CT abdomen pelvis 10/04/2023 FINDINGS: Lower chest: Bibasilar atelectasis versus scarring is seen. Liver: Unremarkable. No focal lesions are seen. Gallbladder and biliary tree: Dependent stones are seen extending to the level of the gallbladder neck. Gallbladder wall measures approximately 3 mm. There is an 8 mm stone in the distal common bile duct. Intra and extrahepatic biliary ductal dilatation is seen measuring up to 11 mm. Pancreas: No definite pancreatic head inflammation is seen. Spleen: Unremarkable. Adrenals: Unremarkable. Kidneys and ureters: Subcentimeter hypodensities are too small to characterize. Bladder: Unremarkable. Reproductive organs: Unremarkable. Bowel: Diverticulosis is seen without diverticulitis. The appendix is normal. Lymph nodes Retroperitoneal: Unremarkable. Pelvic: Unremarkable. Mesenteric: Unremarkable. Peritoneum: Normal. Vessels: Atherosclerotic calcifications are seen. Infrarenal aortic aneurysm measures 40 mm. No thrombus is noted at that level. Abdominal wall: Unremarkable. Bones: Degenerative changes in the visualized spine. IMPRESSION: 1. There is a likely obstructive stone in the distal common bile duct with intra and extrahepatic biliary ductal dilation. This dilation is significantly increased from the prior exam where common bile duct stones were seen as well. 2. Cholelithiasis is seen and there is pericholecystic stranding however findings are not definitely indicative of acute cholecystitis. If further evaluation is desired, nuclear medicine HIDA scan versus ultrasound 3. Diverticulosis without diverticulitis. 4. Additional findings as above. ACT 112: Negative or not required by law. Electronically signed by: Familia Orantes M.D. 01/19/2024 1:07 PM Discharge Plan Visit Data Chief Complaint: Lethargic Stated Complaint: LETHARGIC, FEVER, AMS ED Provider: Randall Bianchi Discharge Problem: Sepsis, Choledocholithiasis, Transaminitis, Elevated bilirubin Patient Disposition: Transfer Acute Care Hospital Forms Stand Alone Forms: My [facility] Prescriptions Prescriptions: No Action irbesartan [Avapro] 150 mg tablet 150 mg PO DAILY rosuvastatin 5 mg Tablet 5 mg PO HS ciprofloxacin HCl [Cipro] 500 mg Tablet 500 mg PO BID Rx Instructions: STARTED 10/03/23 FOR 7 DAYS Referrals Referrals: Sheba VILLEDA [Primary Care Provider] - Discharge Problem: Sepsis Qualifiers: Sepsis type: sepsis due to unspecified organism Sepsis acute organ dysfunction status: unspecified Qualified Code(s): A41.9 - Sepsis, unspecified organism
[2024-01-19] MEDS: SODIUM CHLORIDE 0.9% 1,000 ML IV ONE ×3 (11:21→15:37)
[2024-01-19] MEDS: cefTRIAXone SODIUM 2,000 MG/50 ML BAG IV STA (11:21)
[2024-01-19 11:23] LABS: iSTAT Creatinine 1.4 mg/dl (0.6-1.3); iSTAT Ionized Calcium 1.05 mmol/l (1.12-1.32); iSTAT Potassium 3.7 mmol/L (3.3-5.0)
[2024-01-19 11:26] LABS: Basophils # (auto) 0.04 K/uL (0.00-0.20); Basophils % (auto) 0.2 %; Eosinophils % (auto) 1.1 %; Hematocrit (blood only) 46.4 % (42.0-52.0); Hemoglobin 14.8 g/dl (14.0-18.0); Immature Granulocytes # (auto) 0.07 K/uL (0.01-0.20); Immature Granulocytes % (auto) 0.4 %; Lymphocytes # (auto) 0.36 K/uL (1.20-3.40); Mean Corpuscular Hgb Conc 31.9 g/dL (32.0-36.0); Mean Platelet Volume 9.9 fL (9.4-12.4); Monocytes # (auto) 1.29 K/uL (0.11-0.59); Monocytes % (auto) 7.3 %; Neutrophils # (auto) 15.75 K/uL (1.40-6.50); Platelet Count 214 K/uL (130-400); RDW Coefficient of Variation 14.1 % (11.5-14.5); RDW Standard Deviation 47.6 fL (36.4-46.3); White Blood Count 17.71 K/ul (4.8-10.8)
[2024-01-19 11:45] LABS: Albumin Level 4.1 gm/dl (3.4-5.0); BUN Creatinine Ratio 11.5 (10-20); Bilirubin Direct 4.4 mg/dl (0-0.2); Bilirubin,Total 6.4 mg/dl (0.2-1.0); Calcium 8.9 mg/dl (8.6-10.3); Creatinine Clr Calc Pharmacy 46.6 ml/min; Est GFR (African American) 51.4 ml/min; Est GFR (Non-African American) 44.4 ml/min; Magnesium 1.8 mg/dl (1.7-2.4); Potassium 3.8 mmol/L (3.5-5.1); Total Protein 6.9 gm/dl (6.0-8.3)
[2024-01-19 11:51] LABS: Appearance Urine Clear (Clear); Bacteria Urine Automated None Seen (None Seen); Bilirubin Urine 3+ (Negative); Blood Urine Negative (Negative); Cast Urine Automated 0-2 /lpf (0-2); Color Urine Dark Yellow; Epithelial Cell Urine Auto 0-2 /hpf (0-2); Glucose Urine UA Negative (Negative); Ketones Urine 1+ (Negative); Leukocyte Esterase Urine 1+ (Negative); Nitrite Urine Positive (Negative); Protein Urine 1+ (Negative); RBC Urine Automated 0-2 /hpf (0-2); Urobilinogen Urine Positive (Negative); WBC Urine Automated 0-5 /hpf (0-5)
[2024-01-19 11:52] LABS: Troponin I High Sensitivity 46.1 pg/ml (0-20)
--- NOTE | 2024-01-19 12:08 | XRay Report ---
XR chest 1V portable CLINICAL HISTORY: Sepsis TECHNIQUE: Single frontal radiograph of the chest was obtained. Comparison: Comparison is made to chest radiograph 10/04/2023 FINDINGS: No lines and tubes are seen. Cardiomegaly is noted. The aortic arch is calcified. Lungs are underinfl ated but clear. No evidence of pleural effusion or pneumothorax. IMPRESSION: No acute abnormalities and in particular no radiographic evidence of pneumonia. ACT 112: Negative or not required by law. Electronically signed by: Familia Orantes M.D. 01/19/2024 12:07 PM
--- NOTE | 2024-01-19 12:23 | CT Scan Report ---
CT head/brain wo con CLINICAL HISTORY: ams Technique: Contiguous axial CT images of the head were acquired from the base of the skull to the joyce saurav without intravenous contrast administration. Images were viewed in brain, subdural and bone [facility]. Automated dose lowering techniques and/or adjustment according to patient size were utilized for this exam. Comparison: Comparison is made to CT head 05/20/2022 Findings: Areas of decreased attenuation are present in the periventricular and subcortical white matter bilate rally consistent with small vessel ischemic disease. Generalized cerebral atrophy with commensurate e nlargement of the ventricles, sulci, and cisterns is also present. There is no acute intracranial hem orrhage or evidence of acute territorial infarction. No shift of the midline structures, mass effect, or extra-axial abnormalities are shown. Atherosclerotic calcifications are present in the intracran ial segments of the internal carotid arteries. Imaged portions of the paranasal sinuses and mastoid air cells are clear. The orbits appear normal. There are no acute fractures of the calvaria or scalp swelling. Impression: No acute intracranial hemorrhage, no evidence of acute territorial infarction or other acute intracra nial disease process. ACT 112: Negative or not required by law. Electronically signed by: Familia Orantes M.D. 01/19/2024 12:22 PM
[2024-01-19 12:35] LABS: Adenovirus PCR Not Detected (NotDetected); Bordetella parapertussis PCR Not Detected (NotDetected); Bordetella pertussis PCR Not Detected (NotDetected); Chlamydia pneumoniae PCR Not Detected (NotDetected); Coronavirus 229E PCR Not Detected (NotDetected); Coronavirus CoV-2 (COVID19)PCR Not Detected (NotDetected); Coronavirus HKU1 PCR Not Detected (NotDetected); Coronavirus NL63 PCR Not Detected (NotDetected); Coronavirus OC43PCR Not Detected (NotDetected); Human Metapneumovirus PCR Not Detected (NotDetected); Influenza A PCR Not Detected (NotDetected); Influenza B PCR Not Detected (NotDetected); Mycoplasma pneumoniae PCR Not Detected (NotDetected); Parainfluenza Virus 1 PCR Not Detected (NotDetected); Parainfluenza Virus 2 PCR Not Detected (NotDetected); Parainfluenza Virus 3 PCR Not Detected (NotDetected); Parainfluenza Virus 4 PCR Not Detected (NotDetected); Respiratory Syncytial VirusPCR Not Detected (NotDetected); Rhinovirus/Enterovirus PCR Not Detected (NotDetected)
[2024-01-19] MEDS: OPTIRAY 320 100ml IV ONE (12:47)
--- NOTE | 2024-01-19 13:10 | CT Scan Report ---
CT abd pelvis IV con only CLINICAL HISTORY: sepsis geraldine lfts and bili TECHNIQUE: Helical axial images of the abdomen and pelvis were obtained and displayed. Automated dose lowering techniques and/or adjustment according to patient size were utilized for this exam. This e xam was performed with intravenous contrast. CT DOSE: 1560.36 mGy.cm COMPARISON: Comparison is made to CT abdomen pelvis 10/04/2023 FINDINGS: Lower chest: Bibasilar atelectasis versus scarring is seen. Liver: Unremarkable. No focal lesions are seen. Gallbladder and biliary tree: Dependent stones are seen extending to the level of the gallbladder nec k. Gallbladder wall measures approximately 3 mm. There is an 8 mm stone in the distal common bile gary t. Intra and extrahepatic biliary ductal dilatation is seen measuring up to 11 mm. Pancreas: No definite pancreatic head inflammation is seen. Spleen: Unremarkable. Adrenals: Unremarkable. Kidneys and ureters: Subcentimeter hypodensities are too small to characterize. Bladder: Unremarkable. Reproductive organs: Unremarkable. Bowel: Diverticulosis is seen without diverticulitis. The appendix is normal. Lymph nodes Retroperitoneal: Unremarkable. Pelvic: Unremarkable. Mesenteric: Unremarkable. Peritoneum: Normal. Vessels: Atherosclerotic calcifications are seen. Infrarenal aortic aneurysm measures 40 mm. No throm bus is noted at that level. Abdominal wall: Unremarkable. Bones: Degenerative changes in the visualized spine. IMPRESSION: 1. There is a likely obstructive stone in the distal common bile duct with intra and extrahepatic bi liary ductal dilation. This dilation is significantly increased from the prior exam where common bile duct stones were seen as well. 2. Cholelithiasis is seen and there is pericholecystic stranding however findings are not definitely indicative of acute cholecystitis. If further evaluation is desired, nuclear medicine HIDA scan vers us ultrasound 3. Diverticulosis without diverticulitis. 4. Additional findings as above. ACT 112: Negative or not required by law. Electronically signed by: Familia Orantes M.D. 01/19/2024 1:07 PM
[2024-01-19] MEDS: metroNIDAZOLE 500 MG/100 ML BAG IV STA (13:38)
[2024-01-19] MEDS: ACETAMINOPHEN 325 MG TAB PO STA (14:06)
[2024-01-19] MEDS: ACETAMINOPHEN 1,000 MG/100 ML VIAL IV STA (14:09)
[2024-01-19 14:49] VITALS: TEMP 99.5
--- NOTE | 2024-01-19 17:48 | History & Physical Report ---
Date of Service January 19, 2024 Assessment & Plan (1) Cholangitis: Plan #Sepsis 2/2 ascending cholangitis #Hyperbilirubinemia, transaminitis -continue zosyn -step down admission -hemodynamic monitoring -fluids -will consult GI though patient may leave before seeing them -plan for transfer to [place] tomorrow -pain control -blood cultures -trend labs #NSTEMI type 2 likely in the setting of the above -trending down, unless cp or other cardiac symptoms will monitor #CKD -trend creatinine -baseline around 1.5 #Htn, hld -home meds IVF NPO Lovenox for dvt ppx History of Present Illness Chief Complaint: sepsis Primary Care Provider: CHRISTIANA Montoya 78M unclear pmh, from chart review includes HFpEF, bradycardia s/p PPM, aortic valve disease, GIB?. Patient is a poor historian, though he is oriented x4. History taken from guard, patient is a prisoner. States this AM patient was weak, somnolent, hot to the touch, disoriented, incontinent. Fever on EMS was 101. Guard states patient is looking better now. In the ED was tachy, tachypneic, fever was present. Head CT and CXR normal, CT a/p showing obstructive stone CBD w/cholelithiasis. Tbili 6.4. Plan is for transfer to [place] but no transport, so will be admitted for overnight monitoring before transport. On my evaluation patient denies any symptoms. Allergies Allergy/AdvReac Type Severity Reaction Status Date / Time adhesive tape Allergy Unknown SCI SHEBA Verified 10/04/23 15:05 [facility] MED LIST amoxicillin [From Augmentin] Allergy Unknown SCI SHEBA Verified 10/04/23 15:05 [facility] MED LIST clavulanic acid Allergy Unknown SCI SHEBA Verified 10/04/23 15:05 [From Augmentin] [facility] MED LIST ultrasound coupling medium Allergy Unknown SCI SHEBA Verified 10/04/23 15:05 [facility] MED LIST Home Medications Medication Instructions Recorded Confirmed Type rosuvastatin 5 mg tablet 5 mg PO HS 06/16/21 10/04/23 History irbesartan 150 mg tablet (Avapro) 150 mg PO DAILY 07/04/23 10/04/23 History ciprofloxacin HCl 500 mg tablet 500 mg PO BID 10/04/23 10/04/23 History (Cipro) Past Med/Surg History Problem List (Updated 01/19/24 @ 18:32 by Berto Ruano MD) Cholangitis Elevated bilirubin (Acute) Transaminitis (Acute) Choledocholithiasis (Acute) Sepsis (Acute) Choledocholithiasis with acute cholecystitis Acute cholecystitis due to biliary calculus Acute blood loss anemia Acute GI bleeding Cholecystitis (Acute) Acute gallstone pancreatitis (Acute) Bright red rectal bleeding (Acute) Incontinence Dehydration with hypernatremia (Acute) Electrolyte and fluid disorder Sepsis Fever Hypernatremia COVID-19 (Acute) Acute confusion (Acute) Acute hypernatremia (Acute) BILL (acute kidney injury) (Acute) HTN (hypertension) HLD (hyperlipidemia) Pacemaker Ischemic cardiomyopathy Cognitive changes Altered mental status Hypoxia Acute metabolic encephalopathy (Acute) Hyponatremia Medical History Abdominal aortic aneurysm Cognitive changes HLD (hyperlipidemia) HTN (hypertension) Ischemic cardiomyopathy Pacemaker Social History Smoking Status: Former smoker Tobacco Type: Cigarettes Hx Alcohol Use: No Hx Substance Use: No Preferred Language: Belgian Communication Ability: Effective Picture Painter Required: No Beliefs That Will Affect Care: None marital status: Current Living Situation: Other Current Living Situation Comment: [facility] facility Feels Safe at Home: Yes Assistive Devices: Denture - Upper, Denture - Lower, Glasses and Walker Review of Systems Constitutional: + fever and + fatigue; no chills Gastrointestinal: + abdominal pain, + belching, + heartbur n and + vomiting Physical Exam Constitutional: WD/WN, vitals as above Gastrointestinal (Abdomen): normal bowel sounds, soft, nontender, no hepatosplenomegaly Results & Data Results & Data Vital Signs (Past 12 Hours) Vital Signs Temp Pulse Pulse Resp BP BP Pulse Ox 01/19/24 16:06 79 01/19/24 15:38 37.5 C 80 19 102/63 99 01/19/24 14:49 37.5 C 01/19/24 14:45 84 22 92 01/19/24 14:45 101/59 L 01/19/24 14:30 105/60 01/19/24 14:24 88 20 94 01/19/24 14:18 96 H 21 95 01/19/24 14:00 96 H 23 95 01/19/24 14:00 137/81 01/19/24 13:51 94 H 23 01/19/24 13:45 113/71 01/19/24 13:42 94 H 25 H 93 01/19/24 13:30 125/71 01/19/24 13:18 101 H 24 95 01/19/24 13:15 137/70 01/19/24 13:15 100 H 27 H 90 01/19/24 13:00 102 H 24 93 01/19/24 13:00 134/84 01/19/24 12:36 98 H 23 94 01/19/24 12:30 129/70 01/19/24 12:24 97 H 22 94 01/19/24 12:21 100 H 24 94 01/19/24 12:07 97 H 01/19/24 12:00 102 H 27 H 93 01/19/24 12:00 143/71 H 01/19/24 11:45 101 H 25 H 93 01/19/24 11:45 140/70 01/19/24 11:36 104 H 26 H 93 01/19/24 11:30 143/74 H 01/19/24 11:27 38.1 C H 102 H 30 H 143/74 H 92 01/19/24 11:24 95 H 25 H 92 01/19/24 11:15 134/73 01/19/24 11:00 113/72 01/19/24 10:57 98 H 25 H 92 01/19/24 10:48 101 H 20 92 01/19/24 10:46 146/85 H O2 Del Method 01/19/24 16:06 01/19/24 15:38 Room Air 01/19/24 14:49 01/19/24 14:45 Room Air 01/19/24 14:45 01/19/24 14:30 01/19/24 14:24 Room Air 01/19/24 14:18 Room Air 01/19/24 14:00 Room Air 01/19/24 14:00 01/19/24 13:51 01/19/24 13:45 01/19/24 13:42 Room Air 01/19/24 13:30 01/19/24 13:18 Room Air 01/19/24 13:15 01/19/24 13:15 Room Air 01/19/24 13:00 Room Air 01/19/24 13:00 01/19/24 12:36 Room Air 01/19/24 12:30 01/19/24 12:24 Room Air 01/19/24 12:21 Room Air 01/19/24 12:07 01/19/24 12:00 Room Air 01/19/24 12:00 01/19/24 11:45 Room Air 01/19/24 11:45 01/19/24 11:36 Room Air 01/19/24 11:30 01/19/24 11:27 Room Air 01/19/24 11:24 Room Air 01/19/24 11:15 01/19/24 11:00 01/19/24 10:57 Room Air 01/19/24 10:48 Room Air 01/19/24 10:46 Laboratory Results Abnormal lab results 01/19/24 01/19/24 01/19/24 Range/Units 10:56 11:11 13:19 WBC 17.71 H (4.8-10.8) K/ul MCHC 31.9 L (32.0-36.0) g/dL RDW Std Deviation 47.6 H (36.4-46.3) fL Neut # (Auto) 15.75 H (1.40-6.50) K/uL Lymph # (Auto) 0.36 L (1.20-3.40) K/uL [place] # (Auto) 1.29 H (0.11-0.59) K/uL Sodium 135 L (136-145) mmol/L POC Total CO2 23 L (24-31) mmol/L Anion Gap 12 H (3-11) Creatinine 1.48 H (0.6-1.4) mg/dl POC Creatinine 1.4 H (0.6-1.3) mg/dl Glucose 144 H (70-99(Fasting)) mg/dl POC Glucose (other) 144 H (70-99) mg/dl POC Ioniz Calcium Janis 1.05 L (1.12-1.32) mmol/l Total Bilirubin 6.4 H (0.2-1.0) mg/dl Direct Bilirubin 4.4 H (0-0.2) mg/dl AST 318 H (13-39) U/L ALT 264 H (7-52) U/L Alkaline Phosphatase 507 H (34-104) U/L Troponin I High Sens 46.1 H 42.3 H (0-20) pg/ml Procalcitonin 10.20 H (0-0.5) ng/ml Urine Protein 1+ H (Negative) Urine Ketones 1+ H (Negative) Urine Nitrite Positive A (Negative) Urine Bilirubin 3+ H (Negative) Urine Urobilinogen Positive H (Negative) Ur Leukocyte Esterase 1+ H (Negative) Diagnostic Findings Chest X-Ray 01/19/24 11:07 XR chest 1V portable CLINICAL HISTORY: Sepsis TECHNIQUE: Single frontal radiograph of the chest was obtained. Comparison: Comparison is made to chest radiograph 10/04/2023 FINDINGS: No lines and tubes are seen. Cardiomegaly is noted. The aortic arch is calcified. Lungs are underinflated but clear. No evidence of pleural effusion or pneumothorax. IMPRESSION: No acute abnormalities and in particular no radiographic evidence of pneumonia. ACT 112: Negative or not required by law. Electronically signed by: Familia Orantes M.D. 01/19/2024 12:[address] 01/19/24 11:08 CT head/brain wo con CLINICAL HISTORY: ams Technique: Contiguous axial CT images of the head were acquired from the base of the skull to the vertex without intravenous contrast administration. Images were viewed in brain, subdural and bone windows. Automated dose lowering techniques and/or adjustment according to patient size were utilized for this exam. Comparison: Comparison is made to CT head 05/20/2022 Findings: Areas of decreased attenuation are present in the periventricular and subcortical white matter bilaterally consistent with small vessel ischemic disea se. Generalized cerebral atrophy with commensurate enlargement of the ventricles, sulci, and cisterns is also present. There is no acute intracranial hemorrhage or evidence of acute territorial infarction. No shift of the midline structures, mass effect, or extra-axial abnormalities are shown. Atherosclerotic calcifications are present in the intracranial segments of the internal carotid arteries. Imaged portions of the paranasal sinuses and mastoid air cells are clear. The orbits appear normal. There are no acute fractures of the calvaria or scalp swelling. Impression: No acute intracranial hemorrhage, no evidence of acute territorial infarction or other acute intracranial disease process. ACT 112: Negative or not required by law. Electronically signed by: Familia Orantes M.D. 01/19/2024 12:22 PM Abdomen/Pelvis CT 01/19/24 12:38 CT abd pelvis IV con only CLINICAL HISTORY: sepsis geraldine lfts and bili TECHNIQUE: Helical axial images of the abdomen and pelvis were obtained and displayed. Automated dose lowering techniques and/or adjustment according to patient size were utilized for this exam. This exam was performed with intravenous contrast. CT DOSE: 1560.36 mGy.cm COMPARISON: Comparison is made to CT abdomen pelvis 10/04/2023 FINDINGS: Lower chest: Bibasilar atelectasis versus scarring is seen. Liver: Unremarkable. No focal lesions are seen. Gallbladder and biliary tree: Dependent stones are seen extending to the level of the gallbladder neck. Gallbladder wall measures approximately 3 mm. There is an 8 mm stone in the distal common bile duct. Intra and extrahepatic biliary ductal dilatation is seen measuring up to 11 mm. Pancreas: No definite pancreatic head inflammation is seen. Spleen: Unremarkable. Adrenals: Unremarkable. Kidneys and ureters: Subcentimeter hypodensities are too small to characterize. Bladder: Unremarkable. Reproductive organs: Unremarkable. Bowel: Diverticulosis is seen without diverticulitis. The appendix is normal. Lymph nodes Retroperitoneal: Unremarkable. Pelvic: Unremarkable. Mesenteric: Unremarkable. Peritoneum: Normal. Vessels: Atherosclerotic calcifications are seen. Infrarenal aortic aneurysm measures 40 mm. No thrombus is noted at that level. Abdominal wall: Unremarkable. Bones: Degenerative changes in the visualized spine. IMPRESSION: 1. There is a likely obstructive stone in the distal common bile duct with intra and extrahepatic biliary ductal dilation. This dilation is significantly increased from the prior exam where common bile duct stones were seen as well. 2. Cholelithiasis is seen and there is pericholecystic stranding however findings are not definitely indicative of acute cholecystitis. If further evaluation is desired, nuclear medicine HIDA scan versus ultrasound 3. Diverticulosis without diverticulitis. 4. Additional findings as above. ACT 112: Negative or not required by law. Electronically signed by: Familia Orantes M.D. 01/19/2024 1:07 PM Code Status & VTE Plan VTE Prophylaxis Plan VTE Prophylaxis will be ordered: Yes
--- NOTE | 2024-01-19 17:59 | Communication Note ---
Date of Service: January 19, 2024 d/w hospitalist, patient with choledocholithiasis and cholangitis, needs ercp. cholecystectomy only after duct cleared and resolving infection. If patient septic or toxic appearing, then would recommend transfer for urgent ercp.
[2024-01-19] MEDS ORDERED: MoRPHine SULFATE 2 MG/ML CARP IV PRN (18:37)
[2024-01-19] MEDS ORDERED: HYDROCODONE/ACETAMOPHEN 5/325MG TAB PO PRN (18:37)
[2024-01-19] MEDS ORDERED: ONDANSETRON INJ 2 MG/ML 2 ML VIAL IV PRN (19:49)
[2024-01-19] MEDS: SODIUM CHLORIDE 0.9% 1,000 ML IV SCH (20:43)
[2024-01-19] MEDS: ENOXAPARIN INJ 40 MG/0.4 ML SYR SQ SCH (21:40)
[2024-01-19] MEDS: ROSUVASTATIN CALCIUM 5 MG TAB PO SCH (21:41)
[2024-01-19] MEDS: 4.5GM EXT INFUSION IV SCH (21:41)
[2024-01-19] MEDS: ACETAMINOPHEN 325 MG TAB PO PRN (22:24)
[2024-01-20 05:04] VITALS: BP 127/70; PULSE 65; RESP 16; O2SAT 93
[2024-01-20 05:43] LABS: Albumin Globulin Ratio 1.4 (0.9-2); BUN Creatinine Ratio 13.4 (10-20); Calcium 7.8 mg/dl (8.6-10.3); Creatinine Clr Calc Pharmacy 61.6 ml/min; Est GFR (Non-African American) 62.1 ml/min; Globulin 2.1 gm/dl (2.5-4.0); Potassium 3.6 mmol/L (3.5-5.1); Total Protein 5.1 gm/dl (6.0-8.3)
[2024-01-20 05:58] LABS: Basophils # (auto) 0.03 K/uL (0.00-0.20); Basophils % (auto) 0.4 %; Eosinophils # (auto) 0.13 K/uL (0.00-0.50); Eosinophils % (auto) 1.5 %; Hematocrit (blood only) 36.3 % (42.0-52.0); Hemoglobin 11.3 g/dl (14.0-18.0); Immature Granulocytes # (auto) 0.04 K/uL (0.01-0.20); Immature Granulocytes % (auto) 0.5 %; Lymphocytes # (auto) 0.53 K/uL (1.20-3.40); Lymphocytes % (auto) 6.3 %; Mean Corpuscular Hemoglobin 28.4 pg (25.0-34.0); Mean Corpuscular Hgb Conc 31.1 g/dL (32.0-36.0); Mean Corpuscular Volume 91.2 fL (80.0-100.0); Mean Platelet Volume 10.3 fL (9.4-12.4); Monocytes # (auto) 0.63 K/uL (0.11-0.59); Monocytes % (auto) 7.5 %; Neutrophils # (auto) 7.08 K/uL (1.40-6.50); Neutrophils % (auto) 83.8 %; Platelet Count 144 K/uL (130-400); RDW Coefficient of Variation 14.4 % (11.5-14.5); RDW Standard Deviation 48.4 fL (36.4-46.3); Red Blood Count 3.98 M/uL (4.70-6.10); White Blood Count 8.44 K/ul (4.8-10.8)
[2024-01-20] MEDS ORDERED: LOSARTAN POTASSIUM 50 MG TAB PO SCH (09:00)
--- NOTE | 2024-01-20 09:03 | Discharge Summary ---
Discharge Summary Date of Service January 20, 2024 Principal Dx & Hospital Course #1 = Principal Diagnosis (1) Cholangitis: Plan Patient was admitted to the hospital. Placed on IV fluids and IV antibiotics. At the time of admission the patient had already been accepted in transfer to [facility] for higher level of care and interventional gastroenterology. Patient remained stable through his hospitalization here at [facility]. He was transferred early on the morning of 01/20/2024 to [facility] for ongoing care. Patient was transported before this dictating provider could see and evaluate the patient. Notes For Next Care Provider Medication Changes From Visit Antibiotics Admission HPI Per Admitting Provider 78M unclear pmh, from chart review includes HFpEF, bradycardia s/p PPM, aortic valve disease, GIB?. Patient is a poor historian, though he is oriented x4. History taken from guard, patient is a prisoner. States this AM patient was weak, somnolent, hot to the touch, disoriented, incontinent. Fever on EMS was 101. Guard states patient is looking better now. In the ED was tachy, tachypneic, fever was present. Head CT and CXR normal, CT a/p showing obstructive stone CBD w/cholelithiasis. Tbili 6.4. Plan is for transfer to [place] but no transport, so will be admitted for overnight monitoring before transport. On my evaluation patient denies any symptoms. Admission Exam Per Admitting Provider See H&P Discharge Exam Patient was transferred and discharged prior to being able to evaluate patient Updated Medication List Medication Instructions Recorded Confirmed Type rosuvastatin 5 mg tablet 5 mg PO HS 06/16/21 01/19/24 History irbesartan 150 mg tablet (Avapro) 150 mg PO DAILY 07/04/23 01/19/24 History ciprofloxacin HCl 500 mg tablet 500 mg PO BID 10/04/23 01/19/24 History (Cipro) Hospital Stay Data Consultations 01/19/24 17:03 ED Decision to Admit Stat 01/19/24 19:49 Consult Gastroenterology Routine Diagnostic Imagining Performed 01/19/24 11:08 CT head/brain wo con Stat 01/19/24 12:38 CT abd pelvis IV con only Stat Reviewed imaging, laboratory and diagnostic studies. Pertinent findings as below. LFTs improved from admission WBCs 8.4, improved from admission WBC 17.7 Total Time Total Time Spent Total Time Spent (In Minutes): 15
--- NOTE | 2024-01-20 10:45 | Communication Note ---
Date of Service: January 20, 2024 Received a GI consult request for this patient, however it appears he has been transferred to a different facility prior to rounding.
--- NOTE | 2024-01-21 06:08 | Electrocardiogram Report ---
Test Reason : Blood Pressure : */* mmHG Vent. Rate : 102 BPM Atrial Rate : 102 BPM P-R Int : 192 ms QRS Dur : 128 ms QT Int : 370 ms P-R-T Axes : 51 -53 18 degrees QTcB Int : 482 ms Sinus tachycardia Left axis deviation Right bundle branch block Abnormal ECG When compared with ECG of 04-Oct-2023 11:55, No significant change Confirmed by Rex Lopez ([id number]) on 01/21/2024 6:08:02 AM Referred By: Lindsay VILLEDA Confirmed By: Rex Lopez
== END 2024-01-20 08:30 | disposition short-term general hospital (02) ==
LOC: ED 10:33 → EDINP 10:33 → SUATTDRO 17:47 → EDINP 01-20 07:14